=== PATIENT | female | born 1945 | race Caucasian/White ===

== ENCOUNTER → 2016-03-25 | Outpatient (REF) | payer MEDICARE ==
[~2016-03-25] MED LIST: ASPI1TAB24 PO; DEPA1TAB PO; HYDR25T PO; LASI20TA PO; PROT1TAB2 PO; RISP1TAB3 PO; RISP1TAB41 PO; RISP25INJ IM; Risperidone PO; TYLE325T5 PO; VERA1TAB11 PO; XANA2TAB2 PO; ZOLO100T AD; ZOLO100T PO; ZOLO50TA PO
== END ==
LOC: M LAB REF 12:29
PROVIDERS: ATTEND Obstetrics & Gynecology
DX: N81.11 Cystocele, midline (principal); N39.46 Mixed incontinence

== ENCOUNTER → 2016-05-19 | Outpatient (REF) | payer MEDICARE ==
[~2016-05-19] MED LIST changes: +AMOX500T PO; +HYDR-4274 PO; +TRAZ50TA4 PO
[2016-05-20 11:58] LABS: DIFF SLIDE NUMBER 262; MEAN CORPUSCULAR HEMOGLOBIN 30.5 pg (27.0-33.0); MEAN CORPUSCULAR HGB CONC 33.9 g/dl (32.0-36.5); MEAN CORPUSCULAR VOLUME 90.1 fl (80.0-96.0); PLATELET COUNT, AUTOMATED 280 k/mm3 (150-450); RED CELL DISTRIBUTION WIDTH 12.1 % (11.5-14.5); WHITE BLOOD COUNT 7.2 K/mm3 (4.0-10.0)
[2016-05-20 12:02] LABS: ALBUMIN 3.9 GM/DL (3.2-5.2); ALBUMIN/GLOBULIN RATIO 1.22 (1.00-1.93); ALKALINE PHOSPHATASE 123 U/L (45-117); ALT/SGPT 18 U/L (12-78); ANION GAP 7 MEQ/L (8-16); AST/SGOT 13 U/L (15-37); BILIRUBIN,TOTAL 0.2 MG/DL (0.2-1.0); BLOOD UREA NITROGEN 8 MG/DL (7-18); CALCIUM LEVEL 8.6 MG/DL (8.8-10.2); CARBON DIOXIDE LEVEL 31 MEQ/L (21-32); CHLORIDE LEVEL 102 MEQ/L (98-107); GLOMERULAR FILTRATION RATE > 60.0 (>39); GLUCOSE, FASTING 86 MG/DL (83-110); POTASSIUM SERUM 4.9 MEQ/L (3.5-5.1); SODIUM LEVEL 140 MEQ/L (136-145); TOTAL PROTEIN 7.1 GM/DL (6.4-8.2)
[2016-05-20 12:31] LABS: BASOPHILS 2 % (0-4); EOSINOPHILS 3 % (0-5)
== END ==
LOC: M SFHCCLAY 14:07
PROVIDERS: ATTEND Family Medicine
DX: Z01.818 Encounter for other preprocedural examination (principal); N81.4 Uterovaginal prolapse, unspecified
CPT/HCPCS: 36415; 80053; 85025; 93005; G0463

== ENCOUNTER → 2016-05-26 | Outpatient (REF) | payer MEDICARE ==
[~2016-05-26] MED LIST changes: +antibiotic
== END ==
LOC: M SFHCCLAY 11:59
PROVIDERS: ATTEND Family Medicine
DX: J40 Bronchitis, not specified as acute or chronic (principal)
CPT/HCPCS: 87070; 87205; G0463

== ENCOUNTER 2016-06-22 07:27 | Day surgery (SDC) | payer MEDICARE ==
[~2016-06-22] VITALS: Ht 152.4 cm; Wt 83.5 kg
[2016-06-22] MEDS ORDERED: LR 1,000 ML IV SCH ×3 (07:45→13:30)
[2016-06-22 07:59] LABS: MEAN CORPUSCULAR HGB CONC 33.6 g/dl (32.0-36.5); MEAN CORPUSCULAR VOLUME 89.1 fl (80.0-96.0); RED CELL DISTRIBUTION WIDTH 12.4 % (11.5-14.5); WHITE BLOOD COUNT 5.9 K/mm3 (4.0-10.0)
[2016-06-22] MEDS ORDERED: LIDOCAINE 2% INJ 100 MG/5 ML SDV (FOR ANES.) As Ordered ONE (08:55)
[2016-06-22] MEDS ORDERED: fentaNYL 100 MCG/2 ML INJECTION (J3010) As Ordered ONE ×2 (08:55→10:14)
[2016-06-22] MEDS ORDERED: ROCURONIUM BROMIDE 50 MG/5 ML VIAL As Ordered ONE (08:55)
[2016-06-22] MEDS ORDERED: PROPOFOL 200 MG/20 ML VIAL As Ordered ONE ×2 (08:55→10:14)
[2016-06-22] MEDS ORDERED: MIDAZOLAM INJ 2 MG/2 ML VIAL (J2250) As Ordered ONE (08:55)
[2016-06-22] MEDS ORDERED: ALBUTEROL SULFATE 2.5 MG/0.5 ML INH NEB SOLN As Ordered ONE (09:13)
[2016-06-22] MEDS ORDERED: ALBUTEROL SULFATE 2.5 MG/0.5 ML INH NEB SOLN INH ONE (09:45)
[2016-06-22] MEDS ORDERED: VASOPRESSIN INJ 20 UNITS/ML VIAL As Ordered ONE (10:04)
[2016-06-22] MEDS ORDERED: KETOROLAC 60 MG/2 ML VIAL (J1885) As Ordered ONE (10:39)
[2016-06-22] MEDS ORDERED: NEOSTIGMINE 1MG/ML 5 ML SYRINGE (J2710) As Ordered ONE (10:39)
[2016-06-22] MEDS ORDERED: GLYCOPYRROLATE INJ 0.2 MG/ML 2 ML VIAL As Ordered ONE (10:39)
[2016-06-22] MEDS ORDERED: ONDANSETRON 4MG/2ML VIAL (J2405) As Ordered ONE (10:39)
[2016-06-22] MEDS ORDERED: HYDROmorphone HCL 1 MG/ML SYRINGE (J1170) As Ordered ONE (13:25)
[2016-06-22] MEDS: HYDROmorphone HCL 1 MG/ML SYRINGE (J1170) IV PRN ×4 (13:28→14:21)
[2016-06-22] MEDS ORDERED: ONDANSETRON 4MG/2ML VIAL (J2405) IV PRN (13:30)
[2016-06-22] MEDS ORDERED: fentaNYL 100 MCG/2 ML INJECTION (J3010) IV PRN (13:30)
[2016-06-22] MEDS ORDERED: PERCOCET 5MG/325MG TAB PO PRN (13:30)
[2016-06-22] MEDS ORDERED: MORPHINE PCA 1MG/ML 100ML CADD As Ordered ONE (13:41)
[2016-06-22] MEDS ORDERED: diphenhydrAMINE INJ 50MG/ML VIAL (J1200) IV PRN (14:00)
[2016-06-22] MEDS ORDERED: NALBUPHINE HCL 10 MG/ML AMP (J2300) IV PRN (14:00)
[2016-06-22] MEDS ORDERED: MORPHINE PCA 1MG/ML 100ML CADD IV PRN (14:00)
[2016-06-22] MEDS ORDERED: NALOXONE INJ 0.4 MG/1 ML VIAL (J2310) IV PRN (14:00)
[2016-06-22] MEDS ORDERED: EPIDURAL/PCA KEYS XX PRN (14:00)
[2016-06-22] MEDS ORDERED: METOCLOPRAMIDE INJ 10MG/2ML VIAL (J2765) IV PRN (14:15)
[2016-06-22] MEDS: LR 1,000 ML IV SCH (14:45)
[2016-06-22 16:55] VITALS: BP 161/70
[2016-06-22 17:25] VITALS: BP 128/67
[2016-06-22 18:25] VITALS: BP 137/71
[2016-06-22 20:25] VITALS: BP 140/80
[2016-06-22 21:25] VITALS: BP 138/75
[2016-06-22 22:25] VITALS: BP 142/74
--- NOTE | 2016-06-22 23:03 | RO ---
DATE OF PROCEDURE: 06/22/2016 PREOPERATIVE DIAGNOSIS: Symptomatic pelvic prolapse and incontinence. POSTOPERATIVE DIAGNOSIS: PROCEDURE: Total vaginal hysterectomy with bilateral oophorectomy and left salpingectomy. The right tube was scarred up a little higher and unable to be reached. She then had a uterosacral colpopexy with anterior, posterior perineorrhaphy and mini mid urethral sling using Solyx and, of course, cystourethroscopy. SURGEON: Dr. Cheryl Meyers GRILL ASSOCIATE: There was no surgical life enrichment assistant. ANESTHESIA: General. DESCRIPTION OF PROCEDURE: Daisy was brought to the operating room where sufficient anesthesia was induced. She was prepped, draped and positioned in the usual sterile fashion, the bladder emptied and the cervix, which was sitting at the introitus, grasped with a single-tooth tenaculum. With retractors in place, a circumferential incision was made around the base of the cervix, and the cardinal ligaments were isolated, clamped, transected and ligated using De Robles clamps, which were used throughout this portion of the case, and #0 Vicryl suture, which was also used throughout this portion of the case. The uterosacral ligaments were then clamped, transected and ligated. The left side uterosacral was far better developed than the right. They were labeled for future marking, and the posterior reflection of the peritoneum was entered. The patient has a postmenopausal sized fibroid uterus, and the dissection continued anteriorly to find the peritoneal reflection and the uterine vasculature was then carefully clamped, transected and ligated in a sequential fashion to allow delivery of the uterus. The left fallopian tube and ovary were delivered with the uterus and the pedicles carefully clamped, transected and ligated up to the infundibulopelvic on the left side. On the right side, the broad ligament was transected around, etcetera and the uterus delivered, and then we went back for that ovary, which was visible, but the fallopian tube was snug against the pelvic sidewall and too far up for me to get the pedicle down to view to have good control to deliver it, so we got the ovary on the right side but not the fimbria. We then checked each of these pedicles and had good hemostasis. I then placed the posterior peritoneum on traction. There was a reasonably sized cystocele, but we were able with traction to palpate and get a long Allis onto the uterosacrals. We then placed two Prolene and one Vicryl suture through each uterosacral, and it was certainly easier to place these on the left side than the right. But, we were able to get a decent purchase on the right. We were able to put traction on those sutures and feel that we had good tissue purchase, and, of course, the Prolene was more cephalad and the single Vicryl was more caudad of those three. We then dissected from the vaginal cuff caudad down to the rectovaginal septum. She had essentially a complete transverse defect of the rectovaginal septum at the vaginal cuff level. And as we dissected down, we were able to palpate decent tissue of the rectovaginal septum, and we then were able with this dissection, deflecting away the rectum etcetera, to pass the Prolene, both sides, in a sequential fashion through that rectovaginal septum. Then, we passed the Vicryl most caudad and through and through into the vagina and used Singletary needles to pass the other end as well. Then, we had these [address], three on each uterosacral, secured to the rectovaginal septum and we passed through the ties on each of these and then scoped the patient to confirm normal jets of urine. We were able to see clear jets of urine from both ureters with no difficulty and the Pyridium that the patient had taken preoperatively helped with this. We then completed the rest of the throws on those Prolenes so as to have enough secure throws, given that it was Prolene, and trimmed those and, of course, completed the Vicryl as well. We then closed the vaginal cuff with angle stitches of #0 Vicryl and then a running lock stitch for closure. With this, and securing the vaginal cuff to the posterior wall with all those sutures, we had reasonable, but not complete support, so we went ahead and did a small anterior repair. We did not want to lose too much function, but we injected anteriorly with vasopressin, made a midline incision, used #2-0 Vicryl to resupport the paravesical tissues and then closed that wound making sure not to over correct as much as we could. We then moved on to the Solyx where we injected again anteriorly, about a centimeter cephalad from the urethral meatus, made about a centimeter long incision, dissected out laterally for the tract for the mesh. Then, placed the Solyx mesh into the obturator membrane in the usual fashion, starting first on the right, then on the left and then again scoped the patient, confirmed lack of bladder or urethral injury. When the second cystourethroscopy confirmed lack of injury, we went ahead and closed that vaginal wound and then turned our attention posteriorly to small perineal repair and posterior repair where there was on the left side, a defect of the rectovaginal septum from the perineal body. We went ahead and took an inverted triangle of tissue from the perineal body and then dissected the vaginal tissues cephalad, essentially completing a triangle shape in that direction and then resupported the rectovaginal septum to the perineal body and then resupported horizontally, and then closed that skin over that correction. Following this, the procedure was ended with moistened vaginal pack placed and a Virk placed for temporary bladder drainage. Of course, other than the packing and the Virk, there was no dressing because of the vaginal injury. The procedure was then ended. Estimated blood loss for the procedure was less 50 mL. Fluid replacement was crystalloid. Complications: None. Condition and Disposition: Daisy tolerated the procedure well and was recovering in the recovery room in good condition.
[2016-06-22] MEDS: hydrOXYzine 50 MG TAB PO SCH (23:28)
[2016-06-23 02:25] VITALS: BP 144/76
[2016-06-23] MEDS: IBUPROFEN 600 MG TAB PO PRN ×2 (02:32→09:32)
[2016-06-23] MEDS: LR 1,000 ML IV SCH ×2 (02:33→09:29)
[2016-06-23 03:01] VITALS: BP 153/75
[2016-06-23 06:00] VITALS: BP 144/66
[2016-06-23] MEDS ORDERED: NORCO, ANEXSIA 5/325MG TABLET (HYDROcodone/ACETAMINOPHEN) PO PRN (06:00)
[2016-06-23 07:24] LABS: MEAN CORPUSCULAR HEMOGLOBIN 29.7 pg (27.0-33.0); MEAN CORPUSCULAR VOLUME 92.7 fl (80.0-96.0); RED CELL DISTRIBUTION WIDTH 12.6 % (11.5-14.5); WHITE BLOOD COUNT 8.6 K/mm3 (4.0-10.0)
[2016-06-23] MEDS ORDERED: NORC1TAB4 PO (08:58)
[2016-06-23] MEDS ORDERED: risperiDONE 1 MG TAB PO SCH (09:00)
[2016-06-23] MEDS ORDERED: DOCUSATE SODIUM 100 MG CAP PO SCH (09:00)
[2016-06-23] MEDS ORDERED: VERAPAMIL 180 MG SR TAB PO SCH (09:00)
[2016-06-23] MEDS ORDERED: ASPIRIN 81 MG CHEW TABLET PO SCH (09:00)
[2016-06-23] MEDS ORDERED: SERTRALINE HCL 50 MG TAB PO SCH (09:00)
[2016-06-23] MEDS ORDERED: MOTR200T44 PO (09:07)
[2016-06-23] MEDS: hydrOXYzine 50 MG TAB PO SCH (09:32)
[2016-06-23 09:33] VITALS: BP 144/66
[2016-06-23 10:00] VITALS: BP 149/71
[2016-06-23 16:00] VITALS: BP 152/66
== END 2016-06-23 16:46 | disposition home or self-care (01) ==
LOC: M SDC 07:27 → M MS5PR 16:55 → M SDC 06-23 16:46
PROVIDERS: ATTEND Obstetrics & Gynecology
DX: N81.89 Other female genital prolapse (principal); N39.3 Stress incontinence (female) (male); N72 Inflammatory disease of cervix uteri; N85.01 Benign endometrial hyperplasia; D25.1 Intramural leiomyoma of uterus; I20.9 Angina pectoris, unspecified; I25.2 Old myocardial infarction; I10 Essential (primary) hypertension; E04.1 Nontoxic single thyroid nodule; Z91.040 Latex allergy status; Z91.030 Bee allergy status
CPT/HCPCS: 36415; 57260; 57283; 57288; 58262; 85027; 86850; 86900; 86901; 88305; C1771; J0690; J1170; J1885; J2250; J2405; J2710; J3010

== ENCOUNTER → 2016-08-04 | Outpatient (REF) | payer MEDICARE, OTHER ==
[~2016-08-04] MED LIST changes: +MOTR200T44 PO; +NORC1TAB4 PO
== END ==
LOC: M LAB REF 16:27
PROVIDERS: ATTEND Obstetrics & Gynecology
DX: N81.2 Incomplete uterovaginal prolapse (principal); N39.46 Mixed incontinence; N36.41 Hypermobility of urethra

== ENCOUNTER → 2016-10-19 | Outpatient (CLI) | payer MEDICARE ==
[~2016-10-19] MED LIST changes: +ASPI-161 PO; -ASPI1TAB24 PO; +HYDR-3363 PO; -HYDR-4274 PO; -HYDR25T PO; +HYDR50TA70 PO; +RISP0.5T3 PO; -RISP1TAB41 PO; +RISP1TAB42 PO; +TRAZ50TA11 PO; -TRAZ50TA4 PO
[2016-10-19 10:00] LABS: BASO % 0.8 % (0.0-1.0); EOS # 0.2 K/mm3 (0.0-0.50); EOS % 3.2 % (0.0-3.0); LARGE UNSTAINED CELL # 0.1 K/mm3 (0.0-0.4); LARGE UNSTAINED CELL % 1.4 % (0.0-4.0); LYMPH # 1.6 K/mm3 (1.5-4.5); LYMPH % 24.3 % (24.0-44.0); MEAN CORPUSCULAR HGB CONC 34.1 g/dl (32.0-36.5); MEAN CORPUSCULAR VOLUME 87.9 fl (80.0-96.0); MONO # 0.4 K/mm3 (0.0-0.8); MONO % 5.7 % (0.0-5.0); NEUTROPHILS # 4.1 K/mm3 (1.8-7.7); NEUTROPHILS % 64.6 % (36.0-66.0); PLATELET COUNT, AUTOMATED 236 k/mm3 (150-450); RED CELL DISTRIBUTION WIDTH 12.9 % (11.5-14.5); WHITE BLOOD COUNT 6.3 K/mm3 (4.0-10.0)
[2016-10-19 10:07] LABS: INR 0.91
[2016-10-19 10:25] LABS: PERCENT SATURATION 29.8 % (13.2-45.0)
== END ==
LOC: M LAB 09:15
PROVIDERS: ATTEND Internal Medicine Gastroenterology
DX: D64.9 Anemia, unspecified (principal)

== ENCOUNTER 2016-11-12 07:55 | Outpatient (CLI) | payer MEDICARE ==
[~2016-11-12] VITALS: Ht 152.4 cm; Wt 80.7 kg
[2016-11-12] MEDS ORDERED: NS 1,000 ML IV ONE (08:15)
--- NOTE | 2016-11-12 09:24 | ROOR ---
Patient Name: Daisy Cooney Procedure Date: 11/12/2016 8:47 AM Date of : 1945 Age: 71 Room: [facility] Gender: Female Note Status: Finalized Procedure: Colonoscopy Indications: Gastrointestinal occult blood loss Providers: Kishore Mariee MD Referring MD: Yfn Kohler MD Requesting Provider: Medicines: Monitored Anesthesia Care Complications: No immediate complications. Procedure: Pre-Anesthesia Assessment: - Prior to the procedure, a History and Physical was performed, and patient medications and allergies were reviewed. The patient is competent. The risks and benefits of the procedure and the sedation options and risks were discussed with the patient. All questions were answered and informed consent was obtained. Patient identification and proposed procedure were verified by the physician, the nurse and the surveyor geodetic in the procedure room. Mental Status Examination: alert and oriented. Airway Examination: normal oropharyngeal airway and neck mobility. Respiratory Examination: clear to auscultation. CV Examination: normal. Prophylactic Antibiotics: The patient does not require prophylactic antibiotics. Prior Anticoagulants: The patient has taken no previous anticoagulant or antiplatelet agents. ASA Grade Assessment: II - A patient with mild systemic disease. After reviewing the risks and benefits, the patient was deemed in satisfactory condition to undergo the procedure. The anesthesia plan was to use monitored anesthesia care (MAC). Immediately prior to administration of medications, the patient was re-assessed for adequacy to receive sedatives. The heart rate, respiratory rate, oxygen saturations, blood pressure, adequacy of pulmonary ventilation, and response to care were monitored throughout the procedure. The physical status of the patient was re-assessed after the procedure. The Colonoscope was introduced through the anus and advanced to the cecum, identified by appendiceal orifice and ileocecal valve. The colonoscopy was performed without difficulty. The patient tolerated the procedure well. The quality of the bowel preparation was adequate to identify polyps 6 mm and larger in size and fair. The ileocecal valve, appendiceal orifice, and rectum were photographed. Scope insertion time was 3 minutes. Scope withdrawal time was 8 minutes. The total duration of the procedure was 14 minutes. Findings: The perianal and digital rectal examinations were normal. A 10 mm polyp was found in the transverse colon. The polyp was sessile. The polyp was removed with a cold biopsy forceps. Resection and retrieval were complete. Verification of patient identification for the specimen was done by the physician and nurse using the patient's name, date and medical record number. Estimated blood loss was minimal. Multiple small and large-mouthed diverticula were found from sigmoid to ascending colon. There was no evidence of diverticular bleeding. Non-bleeding external and internal hemorrhoids were found during retroflexion. The hemorrhoids were medium-sized. A moderate amount of semi-solid stool was found from sigmoid to hepatic flexure, interfering with visualization. Lavage of the area was performed using a large amount of sterile water, resulting in clearance with fair visualization. Impression: - Preparation of the colon was fair. - One 10 mm polyp in the transverse colon, removed with a cold biopsy forceps. Resected and retrieved. - Moderate diverticulosis from sigmoid to ascending colon. There was no evidence of diverticular bleeding. - Non-bleeding external and internal hemorrhoids. - Stool from sigmoid to hepatic flexure. Recommendation: - Patient has a contact number available for emergencies. The signs and symptoms of potential delayed complications were discussed with the patient. Return to normal activities tomorrow. Written discharge instructions were provided to the patient. - High fiber diet. - Continue present medications. - Await pathology results. - Repeat colonoscopy in 3 years because the bowel preparation was suboptimal and for surveillance based on pathology results. - Perform an upper GI endoscopy at appointment to be scheduled. - Return to GI clinic as previously scheduled. - Return to primary care physician. Kishore Mariee MD Kishore Mariee MD 11/12/2016 9:24:12 AM This report has been signed electronically. Number of Addenda: 0 Note Initiated On: 11/12/2016 8:47 AM Estimated Blood Loss: Estimated blood loss was minimal.
[2016-11-12 09:35] VITALS: BP 186/80
== END 2016-11-12 09:50 | disposition home or self-care (01) ==
LOC: M OPP 07:55
PROVIDERS: ATTEND Internal Medicine Gastroenterology
DX: R19.5 Other fecal abnormalities (principal); D12.3 Benign neoplasm of transverse colon; K57.30 Diverticulosis of large intestine without perforation or abscess without bleeding; K64.4 Residual hemorrhoidal skin tags; K64.8 Other hemorrhoids; I25.2 Old myocardial infarction; I20.9 Angina pectoris, unspecified; I10 Essential (primary) hypertension; E03.9 Hypothyroidism, unspecified; E04.9 Nontoxic goiter, unspecified; K92.2 Gastrointestinal hemorrhage, unspecified; R23.3 Spontaneous ecchymoses; R06.02 Shortness of breath; M51.9 Unspecified thoracic, thoracolumbar and lumbosacral intervertebral disc disorder; M19.90 Unspecified osteoarthritis, unspecified site; F20.9 Schizophrenia, unspecified; F32.9 Major depressive disorder, single episode, unspecified; F41.9 Anxiety disorder, unspecified; Z78.0 Asymptomatic menopausal state; G47.30 Sleep apnea, unspecified; Z88.8 Allergy status to other drugs, medicaments and biological substances; Z91.040 Latex allergy status; Z91.030 Bee allergy status; Z79.82 Long term (current) use of aspirin; Z79.899 Other long term (current) drug therapy; Z80.0 Family history of malignant neoplasm of digestive organs; Z80.3 Family history of malignant neoplasm of breast

== ENCOUNTER → 2017-06-10 | Outpatient (CLI) | payer MEDICARE | LOC: M WHC 13:42 | DX: Z12.31 Encounter for screening mammogram for malignant neoplasm of breast (principal) | CPT/HCPCS: 77067 ==

== ENCOUNTER → 2017-07-19 | Outpatient (CLI) | payer MEDICARE | LOC: M CLY 08:11 | DX: J42 Unspecified chronic bronchitis (principal) | CPT/HCPCS: 71046 ==

== ENCOUNTER → 2017-08-02 | Outpatient (REF) | payer MEDICARE | LOC: M SFHCCLAY 11:39 | DX: J42 Unspecified chronic bronchitis (principal) | CPT/HCPCS: 87205 ==

== ENCOUNTER → 2017-08-26 | Outpatient (REF) | payer MEDICARE | LOC: M SFHCCLAY 11:17 | DX: J44.1 Chronic obstructive pulmonary disease with (acute) exacerbation (principal) | CPT/HCPCS: 87205 ==

== ENCOUNTER 2017-11-22 13:39 | Inpatient (IN) | payer MEDICARE ==
[2017-11-22 14:04] LABS: BASO # 0.1 10^3/uL (0.0-0.2); BASO % 0.5 % (0.0-1.0); EOS # 0.4 10^3/uL (0.0-0.50); EOS % 4.2 % (0.0-3.0); HEMATOCRIT 40.3 % (36.0-47.0); HEMOGLOBIN 13.7 g/dl (12.0-15.5); IMMATURE GRANULOCYTE % 0.3 % (0-3.0); LYMPH # 1.7 10^3/uL (1.5-4.5); LYMPH % 15.7 % (24.0-44.0); MEAN CORPUSCULAR HEMOGLOBIN 31.4 pg (27.0-33.0); MEAN CORPUSCULAR VOLUME 92.2 fl (80.0-96.0); MONO # 0.6 10^3/uL (0.0-0.8); NEUTROPHILS # 7.8 10^3/uL (1.8-7.7); NEUTROPHILS % 73.3 % (36.0-66.0); PLATELET COUNT, AUTOMATED 228 10^3/uL (150-450); RED BLOOD COUNT 4.37 10^6/uL (4.00-5.40); RED CELL DISTRIBUTION WIDTH 12.2 % (11.5-14.5); WHITE BLOOD COUNT 10.6 10^3/uL (4.0-10.0)
[2017-11-22] MEDS: IPRATROPIUM 0.5MG/ALBUTEROL 2.5MG INH SOL UD 3ML (DUONEB)(J7620) NEB ×5 (14:18→22:47)
[2017-11-22] MEDS: LABETALOL HCL 100 MG/20 ML VIAL IV (14:20)
[2017-11-22 14:22] LABS: INR 0.91; PROTHROMBIN TIME 12.3 SECONDS (12.1-14.4)
[2017-11-22 14:25] LABS: ABG HCO3 27.5 MEQ/L (22.0-26.0); ABG PARTIAL PRESSURE CO2 46.3 mmHg (35.0-45.0); ABG PARTIAL PRESSURE O2 185.9 mmHg (75.0-100.0); ABG STANDARD HCO3 26.2 MEQ/L (22.0-26.0); ABG TOTAL CO2 28.9 MEQ/L (23.0-31.0); ABG pH (ARTERIAL) 7.391 UNITS (7.350-7.450)
[2017-11-22 14:43] LABS: LACTIC ACID SEPSIS PROTOCOL 0.8 MMOL/L (0.4-2.0)
[2017-11-22 14:48] LABS: ALKALINE PHOSPHATASE 115 U/L (45-117); ALT/SGPT 28 U/L (12-78); ANION GAP 9 MEQ/L (8-16); AST/SGOT 21 U/L (7-37); BILIRUBIN,DIRECT < 0.1 MG/DL (0.0-0.2); BILIRUBIN,TOTAL 0.3 MG/DL (0.2-1.0); BLOOD UREA NITROGEN 10 MG/DL (7-18); CALCIUM LEVEL 9.2 MG/DL (8.8-10.2); CARBON DIOXIDE LEVEL 26 MEQ/L (21-32); CHLORIDE LEVEL 102 MEQ/L (98-107); CPK CREATINE PHOSPHOKINASE 120 U/L (26-192); CREATININE FOR GFR 0.52 MG/DL (0.55-1.30); GLOMERULAR FILTRATION RATE > 60.0 (>39); GLUCOSE, FASTING 109 MG/DL (70-100); MB/CK RELATIVE INDEX 2.83 (< OR =4); NT-PRO BNP 184 PG/ML (<125); SODIUM LEVEL 137 MEQ/L (136-145); TOTAL PROTEIN 7.7 GM/DL (6.4-8.2); TROPONIN I < 0.02 NG/ML (< 0.10)
[2017-11-22 15:00] LABS: ALBUMIN/GLOBULIN RATIO 1.08 (1.00-1.93)
[2017-11-22] MEDS ORDERED: ISOVUE-370 76% 100ML VIAL (Q9967) As Ordered (15:21)
[2017-11-22] MEDS: methylPREDNISolone INJ 125 MG/2 ML VIAL (J2930) IV ×2 (16:00→21:55)
[2017-11-22] MEDS: ALBUTEROL SULFATE 2.5 MG/0.5 ML INH NEB SOLN NEB (16:00)
[2017-11-22] MEDS: MOXIFLOXACIN 400 MG TAB PO (18:11)
[2017-11-22] MEDS: NITROGLYCERIN 2% OINT 1 GM *U/D* PKT TOP (18:15)
[2017-11-22] MEDS ORDERED: RAMELTEON 8 MG TAB (ROZEREM) PO (18:30)
[2017-11-22 19:35] LABS: C REACTIVE PROTEIN QUANTITATIV 0.38 MG/DL (0.00-0.30)
[2017-11-22] MEDS: FLUTICASONE HFA 44 MCG 10.6GM INHALER (FLOVENT) INH (20:01)
[2017-11-22] MEDS ORDERED: PILL CRUSHER/CUTTER 1 EACH XX (21:15)
[2017-11-22] MEDS: ACETAMINOPHEN TAB 650MG DOSE (2X325MG) PO (21:55)
[2017-11-22] MEDS: VERAPAMIL 40 MG TAB PO (21:56)
[2017-11-22] MEDS: HEPARIN SOD (PORCINE) 5000 UNITS/ML VIAL SC (21:56)
[2017-11-22] MEDS: LEVALBUTEROL 1.25 MG/0.5 ML CONCENTRATE NEB INH (22:47)
[2017-11-23] MEDS: HEPARIN SOD (PORCINE) 5000 UNITS/ML VIAL SC (05:39)
[2017-11-23] MEDS: VERAPAMIL 40 MG TAB PO (05:41)
[2017-11-23] MEDS: IPRATROPIUM 0.5MG/ALBUTEROL 2.5MG INH SOL UD 3ML (DUONEB)(J7620) NEB (06:11)
[2017-11-23 07:26] LABS: BASO % 0.1 % (0.0-1.0); HEMATOCRIT 40.5 % (36.0-47.0); IMMATURE GRANULOCYTE % 0.3 % (0-3.0); LYMPH # 0.8 10^3/uL (1.5-4.5); LYMPH % 10.9 % (24.0-44.0); MEAN CORPUSCULAR HEMOGLOBIN 31.7 pg (27.0-33.0); MEAN CORPUSCULAR HGB CONC 34.6 g/dl (32.0-36.5); MEAN CORPUSCULAR VOLUME 91.6 fl (80.0-96.0); MONO # 0.1 10^3/uL (0.0-0.8); MONO % 1.6 % (0.0-5.0); NEUTROPHILS # 6.5 10^3/uL (1.8-7.7); NEUTROPHILS % 87.1 % (36.0-66.0); PLATELET COUNT, AUTOMATED 235 10^3/uL (150-450); RED BLOOD COUNT 4.42 10^6/uL (4.00-5.40); RED CELL DISTRIBUTION WIDTH 12.1 % (11.5-14.5); WHITE BLOOD COUNT 7.5 10^3/uL (4.0-10.0)
[2017-11-23] MEDS: FLUTICASONE HFA 44 MCG 10.6GM INHALER (FLOVENT) INH (07:34)
[2017-11-23] MEDS: TIOTROPIUM INHALER/CAPSULE (SPIRIVA) INH (07:34)
[2017-11-23 08:06] LABS: ANION GAP 7 MEQ/L (8-16); BLOOD UREA NITROGEN 7 MG/DL (7-18); CALCIUM LEVEL 9.8 MG/DL (8.8-10.2); CARBON DIOXIDE LEVEL 30 MEQ/L (21-32); CHLORIDE LEVEL 100 MEQ/L (98-107); CREATININE FOR GFR 0.58 MG/DL (0.55-1.30); GLOMERULAR FILTRATION RATE > 60.0 (>39); GLUCOSE, FASTING 179 MG/DL (70-100); POTASSIUM SERUM 4.4 MEQ/L (3.5-5.1); SODIUM LEVEL 137 MEQ/L (136-145)
[2017-11-23] MEDS: SERTRALINE 100 MG TAB PO (08:29)
[2017-11-23] MEDS: clonazePAM 1 MG TAB PO (08:29)
[2017-11-23] MEDS: PYRIDOXINE 50 MG TAB PO (08:29)
[2017-11-23] MEDS: methylPREDNISolone INJ 125 MG/2 ML VIAL (J2930) IV (08:30)
[2017-11-23] MEDS: FUROSEMIDE 20 MG TAB PO (08:30)
[2017-11-23] MEDS: VITAMIN E 400 INTERNATIONAL UNITS CAP PO (08:30)
[2017-11-23] MEDS: CYANOCOBALAMIN 500 MCG TAB PO (08:30)
[2017-11-23] MEDS: ASPIRIN 81 MG CHEW TABLET PO (08:30)
[2017-11-23] MEDS: FOLIC ACID 1 MG TAB PO (08:31)
[2017-11-23] MEDS ORDERED: ENTER DRUG NAME HERE (PATIENT'S OWN MED) PO (09:00)
[2017-11-23] MEDS ORDERED: VERAPAMIL 40 MG TAB PO (09:00)
[2017-11-23] MEDS: methylPREDNISolone 80MG/ML SUSP 1ML VIAL (J1040) IM (13:51)
== END 2017-11-23 14:15 | disposition home or self-care (01) | DRG 192 ==
LOC: M ED 13:39 → M ED INP 18:05
DX: J44.0 Chronic obstructive pulmonary disease with (acute) lower respiratory infection (principal); J20.9 Acute bronchitis, unspecified; J44.1 Chronic obstructive pulmonary disease with (acute) exacerbation; Z91.040 Latex allergy status; Z88.8 Allergy status to other drugs, medicaments and biological substances; Z91.038 Other insect allergy status; Z79.82 Long term (current) use of aspirin; Z79.899 Other long term (current) drug therapy; Z87.891 Personal history of nicotine dependence; I10 Essential (primary) hypertension; F20.9 Schizophrenia, unspecified

== ENCOUNTER → 2018-01-02 | Outpatient (REF) | payer MEDICARE | LOC: M SFHCCLAY 12:27 | DX: J44.1 Chronic obstructive pulmonary disease with (acute) exacerbation (principal) | CPT/HCPCS: 87186; 87205 ==

== ENCOUNTER → 2018-01-30 | Outpatient (REF) | payer MEDICARE | LOC: M SFHCCLAY 01-31 11:11 | DX: J44.1 Chronic obstructive pulmonary disease with (acute) exacerbation (principal) | CPT/HCPCS: 87205 ==

== ENCOUNTER → 2018-03-20 | Outpatient (CLI) | payer MEDICARE ==
[~2018-03-20] MED LIST changes: +BIOT10TA2 PO; +CLON0.5T8 PO; +DOXY100C PO; +FOLI1TAB11 PO; -LASI20TA PO; +LASI20TA3 PO; +PROAAER10 INH; +PYRI100T2 PO; +TRAZ-160 PO; -TRAZ50TA11 PO; +TURM500T PO; +VITA10002 PO; +VITA400C67 PO; +VRAY1.5C PO
--- NOTE | 2018-03-20 12:50 | REP ---
UNILATERAL RIGHT RIBS, PA CHEST, FIVE VIEWS: HISTORY: Chest pain. COMPARISON: 11/21/2017 A minimal increase in interstitial markings is present in the lower lobes consistent with chronic interstitial change. The heart is normal in size. The pulmonary vasculature is normal in appearance. There are fractures of the right 5th and 6th ribs. IMPRESSION: 1. Bibasilar chronic interstitial fibrosis. 2. Fractures of the right 5th and 6th ribs.
== END ==
LOC: M CLY 11:04
PROVIDERS: ATTEND Family Medicine
DX: J84.10 Pulmonary fibrosis, unspecified (principal); S22.41XA Multiple fractures of ribs, right side, initial encounter for closed fracture; R07.89 Other chest pain; W18.09XA Striking against other object with subsequent fall, initial encounter; Y92.009 Unspecified place in unspecified non-institutional (private) residence as the place of occurrence of the external cause
CPT/HCPCS: 71101; G0463

== ENCOUNTER → 2018-06-13 | Outpatient (CLI) | payer MEDICARE ==
[~2018-06-13] MED LIST changes: -NORC1TAB4 PO; +NORC1TAB7 PO; +VERA180T3 PO; -VERA1TAB11 PO
--- NOTE | 2018-06-15 16:32 | ECHO ---
DATE OF PROCEDURE: 06/13/2018 REFERRING PHYSICIAN: Dr. Rosibel Carranza INDICATION: Chronic obstructive pulmonary disease with exacerbation. HEIGHT: 60 inches. WEIGHT: 153 pounds. 2D MEASUREMENTS: Aortic root: 3.2 cm Left atrium: 3.3 cm Ventricular septum: 1.22 cm Posterior wall: 1.21 cm Left ventricle diastole: 4.3 cm Inferior vena cava: 1.4 cm DOPPLER MEASUREMENTS: Aortic valve velocity: 132 cm/s LVOT velocity: 85.0 cm/s LVOT VTI: 22.4 cm Mitral E velocity: 74.2 cm/s Mitral A velocity: 91.2 cm/s Mitral deceleration time: 264 ms Very mild tricuspid regurgitation. Estimated right ventricle systolic pressure: 39-44 mmHg assuming a pressure of 5-10 mmHg. MITRAL ANNULAR TISSUE DOPPLER: E prime septal: 4.24 cm/s Mitral E velocity lateral: 5.22 cm/s DESCRIPTION: Rhythm was sinus rhythm and sinus bradycardia. Image quality was adequate. This was a 2D, M-mode, color flow Doppler and pulse wave Doppler examination and included mitral annular tissue Doppler. No pericardial effusion. CONCLUSIONS: 1. Suggestive of mild-moderate elevation of estimated right ventricle systolic pressure (39-44 mmHg). 2. Normal left ventricle internal dimensions. Very mild concentric left ventricle hypertrophy. Normal regional left ventricular (LV) wall motion and wall thickening. Normal LV systolic function. Left ventricular ejection fraction (LVEF) 65% (3D). Grade 1 LV diastolic dysfunction. 3. Mild aortic valve sclerosis of a 3-cusp aortic valve. No aortic regurgitation. 4. Otherwise normal appearing echocardiogram Doppler findings. [facility]
== END ==
LOC: M CARPUL 09:05
PROVIDERS: ATTEND Internal Medicine Pulmonary Disease
DX: I35.8 Other nonrheumatic aortic valve disorders (principal); J44.1 Chronic obstructive pulmonary disease with (acute) exacerbation

== ENCOUNTER → 2018-11-24 | Outpatient (CLI) | payer MEDICARE ==
[~2018-11-24] MED LIST changes: +CENT1TAB PO; +CYAN100049 PO; +GABA-1171 PO; +IBUP200T45 PO; +MELA5CAP2 PO; +MONT10TA2 PO; +SYMB16INH INH; +THIA100T7 PO; -TRAZ-160 PO; +TRAZ-252 PO; -VITA10002 PO; -ZOLO100T AD; +prevagen PO
--- NOTE | 2018-11-24 10:05 | REP ---
CT chest without contrast: Low-dose screening exam. History: Personal history of nicotine dependence. Comparison chest CT study November 22, 2017 May 12, [address] study is also reviewed. CT findings: There are emphysematous changes in the upper lobes of the lungs, right more so than left unchanged. There is a linear area of fibrosis in the right upper lobe posteriorly adjacent to the major fissure which is unchanged from the 2013 prior study. No significant pulmonary nodule is appreciated. There are old bilateral rib fractures in various stages of healing. On the left there are two rib fractures which appear recent anterolaterally. Vascular calcifications noted. Impression: Lung RADS category one negative exam. Repeat screening study suggested 1 year. Electronically Signed by Harry Crane MD 11/24/2018 09:57 A
== END ==
LOC: M RAD 09:36
PROVIDERS: ATTEND Internal Medicine Pulmonary Disease
DX: Z12.2 Encounter for screening for malignant neoplasm of respiratory organs (principal); Z87.891 Personal history of nicotine dependence

== ENCOUNTER 2018-11-26 12:03 | Inpatient (IN) | payer MEDICARE ==
[~2018-11-26] VITALS: Ht 152.4 cm; Wt 68.2 kg
[~2018-11-26 12:03] MED LIST changes: -CENT1TAB PO; -GABA-1171 PO; -IBUP200T45 PO; -MELA5CAP2 PO; -MONT10TA2 PO; +SERTRALINE 100 MG TAB PO SCH; -SYMB16INH INH; -THIA100T7 PO; -prevagen PO
[2018-11-26] MEDS ORDERED: NS 500 ML IV ONE (12:15)
[2018-11-26] MEDS: NS 1,000 ML IV SCH ×2 (12:38→22:36)
[2018-11-26 12:45] LABS: BASO % 0.1 % (0.0-1.0); HEMATOCRIT 46.5 % (36.0-47.0); LYMPH # 0.7 10^3/uL (1.5-5.0); MEAN CORPUSCULAR HEMOGLOBIN 32.7 pg (27.0-33.0); MEAN CORPUSCULAR HGB CONC 34.4 g/dl (32.0-36.5); MEAN CORPUSCULAR VOLUME 95.1 fl (80.0-96.0); MONO # 1.4 10^3/uL (0.0-0.8); MONO % 8.4 % (0.0-5.0); NEUTROPHILS # 14.8 10^3/uL (1.5-8.5); NEUTROPHILS % 87.1 % (36.0-66.0); PLATELET COUNT, AUTOMATED 281 10^3/uL (150-450); RED BLOOD COUNT 4.89 10^6/uL (4.00-5.40); WHITE BLOOD COUNT 16.9 10^3/uL (4.0-10.0)
[2018-11-26] MEDS ORDERED: ceFAZolin SOD 1 GM in D5W MINI-BAG PLUS 50 ML IV ONE (12:45)
--- NOTE | 2018-11-26 13:28 | ECGEPIP ---
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
[2018-11-26 13:29] LABS: BLOOD UREA NITROGEN 32 MG/DL (7-18); CALCIUM LEVEL 8.8 MG/DL (8.8-10.2); CARBON DIOXIDE LEVEL 25 MEQ/L (21-32); CHLORIDE LEVEL 104 MEQ/L (98-107); CPK CREATINE PHOSPHOKINASE 6864 U/L (26-192); CREATININE FOR GFR 0.51 MG/DL (0.55-1.30); GLOMERULAR FILTRATION RATE > 60.0 (>39); GLUCOSE, FASTING 151 MG/DL (70-100); POTASSIUM SERUM 3.6 MEQ/L (3.5-5.1); SODIUM LEVEL 139 MEQ/L (136-145)
[2018-11-26 13:34] LABS: INR 1.12; PROTHROMBIN TIME 14.1 SECONDS (11.8-14.0)
[2018-11-26 13:35] LABS: PARTIAL THROMBOPLASTIN TIME 28.4 SECONDS (25.0-38.4)
--- NOTE | 2018-11-26 13:43 | REP ---
REASON: Trauma. There is a transverse fracture through the mid diaphysis of the humerus with slight posterolateral displacement. Electronically Signed by Omar Turner DO 11/26/2018 02:22 P
--- NOTE | 2018-11-26 13:51 | REP ---
REASON FOR EXAM: Pain, assess for fracture. The exam was performed without intravenous or oral bowel preparatory contrast. Both soft tissue and bone window settings were performed. Degenerative changes seen involving the imaged lumbar spine. There is bilateral, rather symmetric-appearing moderate hip joint space narrowing without prominent marginal osteophytosis or vincenzo buttressing. There is no fracture, dislocation, or subluxation. The bony pelvis is within normal limits. The sacroiliac joints are within normal limits for the patient's age. Mild inferior marginal osteophytosis is present. There is gross distention of the urinary bladder. There is no free fluid in the pelvis. The bowel loops are seen to be within normal limits. IMPRESSION: 1. There is no evidence of a fracture. 2. Degenerative changes, as described above. 3. Distention of the urinary bladder. Electronically Signed by Omar Turner DO 11/26/2018 02:23 P
--- NOTE | 2018-11-26 13:53 | REP ---
REASON: Trauma. There is a proximal humeral fracture. Please see the humerus report. Degenerative changes are seen involving the glenohumeral and acromioclavicular joints. There is no evidence of a dislocation or subluxation. Multiple right-sided rib fractures are noted. At least the 2nd, 3rd, and 5th ribs are fractured, possibly more. IMPRESSION: 1. Known humeral fracture. 2. Chronic changes involving the glenohumeral and acromioclavicular joints. 3. Multiple right-sided rib fractures. Electronically Signed by Omar Turner DO 11/26/2018 02:23 P
--- NOTE | 2018-11-26 13:54 | REP ---
The exam is limited by overlying casting/bandage material. No vincenzo elbow abnormality is noted. Electronically Signed by Omar Turner DO 11/26/2018 02:23 P
--- NOTE | 2018-11-26 13:56 | REP ---
REASON: Preop. COMPARISON: Frontal view obtained as part of a rib series on 03/20/2018. The technique utilized in obtaining the radiograph has magnified the cardiac silhouette and accentuated the interstitial markings. The cardiomediastinal silhouette is unchanged. Mild cardiomegaly cannot be ruled out. Fibrotic changes are again seen throughout the lung nesbitt, status quo. No acute patchy parenchymal opacities or pleural effusions are present. There are multiple right-sided rib fractures. IMPRESSION: 1. No acute cardiopulmonary disease. 2. Multiple right-sided rib fractures. Electronically Signed by Omar Turner DO 11/26/2018 02:23 P
[2018-11-26] MEDS ORDERED: NS 1,000 ML IV ONE (14:00)
[2018-11-26] MEDS ORDERED: prevagen PO (14:11)
[2018-11-26] MEDS ORDERED: MELA5CAP2 PO (14:11)
[2018-11-26] MEDS ORDERED: THIA100T7 PO (14:11)
[2018-11-26] MEDS ORDERED: CENT1TAB PO (14:11)
[2018-11-26] MEDS ORDERED: GABA-1171 PO (14:11)
[2018-11-26] MEDS ORDERED: MONT10TA2 PO (14:11)
[2018-11-26] MEDS ORDERED: SYMB16INH INH (14:11)
[2018-11-26] MEDS ORDERED: IBUP200T45 PO (14:11)
[2018-11-26] MEDS ORDERED: MORPHINE 4 MG/ML 1ML VIAL/SYRINGE (J2270) IV PRN (14:45)
[2018-11-26] MEDS ORDERED: MAALOX 30 ML SUSP *UDC PO PRN (14:45)
[2018-11-26] MEDS ORDERED: MOM 30ML SUSPENSION UDC PO PRN (14:45)
[2018-11-26] MEDS ORDERED: ALBUTEROL SULFATE 2.5 MG/0.5 ML INH NEB SOLN NEB PRN (14:45)
[2018-11-26] MEDS: MONTELUKAST 10 MG TAB PO SCH (15:23)
[2018-11-26] MEDS ORDERED: diltiaZEM **CD** 180 MG CAP PO SCH (15:30)
[2018-11-26] MEDS ORDERED: VERAPAMIL 120 MG SR TAB PO SCH (15:30)
[2018-11-26] MEDS: VERAPAMIL 40 MG TAB PO SCH (16:00)
[2018-11-26] MEDS ORDERED: PILL CUTTER 1 EACH XX PRN (16:15)
[2018-11-26 17:00] VITALS: BP 141/79
[2018-11-26] MEDS: SERTRALINE 100 MG TAB PO SCH (18:28)
[2018-11-26] MEDS: SYMBICORT 160/4.5MCG INHALER 6GM INH SCH (19:50)
[2018-11-26 20:53] VITALS: BP 139/73
[2018-11-26] MEDS: DOCUSATE SODIUM 100 MG CAP PO SCH (21:05)
[2018-11-26] MEDS: KETOROLAC 30 MG/ML VIAL (J1885) IV PRN (21:06)
--- NOTE | 2018-11-26 21:37 | HPEPDOC ---
General Date of Admission Nov 26, 2018 at 14:43 Date of Service: Nov 26, 2018 Chief Complaint The patient is a 73-year-old female admitted with a reason for visit of Brachial Plexus Injury Rt Open Fx Of Rt Humerus. Source: Patient, Family, RN/MD, Old records Exam Limitations: No limitations Severity: Severe History of Present Illness 73 year old female with Schizophrenia, anxiety disorder, hypertension, COPD/Chronic asthma presented to the ED after a fall and being on the floor with right arm trapped in between bed rails hanging from the bed for about 36 hours. On the morning of 11/25/18 patient woke up from sleep with the right arm in between the rails of her 's hospital bed in which she was sleeping (her has ALS and has been admitted in [facility] for the past 2 weeks) tried to slide it out for an hour could not then she got out of bed still with the arm trapped and tried to get it out for another hour could not. Her phone was in the outer room up the stairs. She dragged the bed to the outer room still with arm trapped and tried to throw things at the phone to make it fall down the stairs which ultimately did come down. But by this time she had urinary incontinence on the floor and slipped down on the floor with legs under the couch with arm hanging from the bed rail heard a cracking noise then saw the bleeding start. Then she lost track of time . Her arm was not hurting in fact was numb and was bleeding and she was on the floor with the arm trapped above in the bed rail. Her son and daughter were calling her and in not getting any response since yesterday went to check on her this morning. The EMS had to unscrew the whole of the rail from the bed to get her arm out. In the ED she was found to have a open right humerus fracture. She did not have any power in the right arm but had good pulses. It was felt that she has brachial plexus injury from the prolonged stretching. She was also noted to have rhabdomyolysis. Multiple right-sided rib fractures are noted. At least the 2nd, 3rd, and 5th ribs are fractured, possibly more. The wound was cleaned and humerus casted by orthopedics with the plan for fixation in the next 24 to 48 hours. Home Medications Scheduled Aspirin (Aspirin EC) 81 Mg Tab, 81 MG PO DAILY, (Reported) Budesonide/Formoterol (Symbicort 160-4.5 Mcg Inhaler) 6 Gm Hfa.aer.ad, 2 PUFF INH BID, (Reported) Cyanocobalamin (Vitamin B-12) (Vitamin B-12) 1,000 Mcg Tab, 1,000 MCG PO DAILY, (Reported) Furosemide (Lasix) 20 Mg Tab, 20 MG PO DAILY, (Reported) Gabapentin (Gabapentin) 100 Mg Capsule, 100 MG PO DAILY, (Reported) Montelukast Sodium (Montelukast Sodium) 10 Mg Tablet, 10 MG PO DAILY, (Reported) Multivit-Min/FA/Lycopen/Lutein (Centravites 50 Plus Tablet) 1 Each Tablet, 1 EACH PO DAILY, (Reported) Pyridoxine HCl (Vitamin B6) (Vitamin B-6) 100 Mg Tab, 100 MG PO DAILY, (Reported) Sertraline Hcl (Zoloft) 100 Mg Tab, 100 MG PO DAILY, (Reported) Thiamine HCl (Thiamine HCl) 100 Mg Tablet, 100 MG PO DAILY, (Reported) Verapamil HCl (Verapamil ER) 180 Mg Tab, 180 MG PO DAILY, (Reported) [prevagen] , 1 TAB PO DAILY, (Reported) Scheduled PRN Albuterol Sulfate (Proair Hfa) 108 Mcg/Act Aer, 2 PUFF INH QID PRN for SHORTNESS OF BREATH, (Reported) Clonazepam (Clonazepam) 0.5 Mg Tab, 0.5 MG PO BID PRN for ANXIETY, (Reported) Ibuprofen (Ibu-200) 200 Mg Tablet, 200 MG PO QID PRN for PAIN, (Reported) Melatonin (Melatonin) 5 Mg Capsule, 5 MG PO QHS PRN for SLEEP, (Reported) Allergies Coded Allergies: bee venom protein (honey bee) (Verified Allergy, Unknown, 11/26/18) latex (Verified Allergy, Unknown, 11/26/18) Past Medical History Medical History SCHIZOPHRENIA ANXIETY DISORDER HYPERTENSION COPD/CHRONIC ASTHMA EMPHYSEMA FX. RIBS Left and Right. NODULE ON THYROID CATARACTS LUMP LEFT BREAST DIVERTICULITIS Surgical History NODULE ON THYROID ASPIRATED 08/01/2013 [facility] HYSTERECTOMY 06/22/16 COLONOSCOPY-DIVERTICULITIS,1 POLYP REMOVED 11/12/16 Family History FATHER: , PSYCH ISSUES, ALCOHOLISM, DIAGNOSED WITH PSYCHIATRIC CONDITIONS MOTHER: , CANCER, COLON, CARDIAC DISEASE, ARTHRITIS, HYPERTENSION, HYPERLIPIDEMIA, DIABETES, PSYCHIATRIC CONDITIONS SIBLINGS: , 1 SISTER , COPD SON(S): ALIVE DAUGHTER(S): ALIVE PATERNAL GRAND FATHER: PATERNAL GRAND MOTHER: , CANCER MATERNAL GRAND FATHER: MATERNAL GRAND MOTHER: 2 BROTHER(S) , 1 SISTER(S) . 1 SON(S) , 1 DAUGHTER(S) . BROTHER HAS HYPERTENSION,TRIPLE BYPASS SURGERY.SISTER FROM EMPHYSEMA.ONE BROTHER FROM PULMONARY EMBOLISM. Social History * Smoker: former Smoker Alcohol: Denies Drugs: denies A-FIB/CHADSVASC A-FIB History Current/History of A-Fib/PAF?: No Review of Systems Constitutional: Reports: Weakness, Fatigue; Denies: Chills, Fever, Night Sweats Eyes: Denies: Pain, Vision change ENT: Denies: Head Aches, Ear Pain, Dysphagia Skin: Reports: Bruising (on the right from the hip, buttocks, both legs. ), Breakdown (laceration on the right arm from elbow to axilla on medical side, a small one on the lower lateral part) Pulmonary: Denies: Dyspnea, Cough Cardiovascular: Denies: Chest Pain, Palpitations, Orthopnea, Paroxysmal Noc. Dyspnea, Lt Headedness Gastrointestinal: Denies: Nausea, Vomiting, Abdominal Pain, Diarrhea Genitourinary: Denies: Dysuria, Frequency, Incontinence, Retention Hematologic: Denies: Bruising, Bleeding Excessively Musculoskeletal: Reports: Back Pain, Leg Pain, Joint Pain, Muscle Pain Neurological: Reports: Weakness (right upper extremity), Numbness (right upper extremity); Denies: Change in speech, Confusion Psych: Reports: Mood Normal; Denies: Depression, Memory Issues Physical Examination General Exam: Positive: Alert, Cooperative, No Acute Distress Eye Exam: Positive: PERRLA, Conjunctiva & lids normal, EOMI; Negative: Sclera icteric ENT Exam: Positive: Atraumatic, Mucous membr. moist/pink, Pharynx Normal Neck Exam: Positive: Supple; Negative: JVD, thyromegaly Chest Exam: Positive: Clear to auscultation, Normal air movement Heart Exam: Positive: Tachycardic, Regular Rhythm, Normal S1, Normal S2; Negative: Murmurs, Rubs Telemetry: Positive: No significant arrhythmia Abdomen Exam: Positive: Normal bowel sounds, Soft; Negative: Tenderness, Hepatospenomegaly Extremity Exam: Positive: Other (swelling, bruising on the right hip and whole buttock extending down the thigh); Negative: Clubbing, Cyanosis, Edema Skin Exam: Positive: Breakdown (lacerations on the right arm) Neuro Exam: Positive: Normal Speech, Other (0/5 power on the right upper extremity) Psych Exam: Positive: Mental status NL, Mood NL, Oriented x 3 Vital Signs Vital Signs Date Time Temp Pulse Resp B/P (MAP) Pulse Ox O2 Delivery O2 Flow Rate FiO2 11/26/18 16:24 97.7 107 20 158/71 (100) 97 Room Air 11/26/18 13:15 2.0 Laboratory Data Labs 24H Laboratory Tests 2 11/26/18 12:29: Immature Granulocyte % (Auto) 0.4, White Blood Count 16.9H, Red Blood Count 4.89, Hemoglobin 16.0H, Hematocrit 46.5, Mean Corpuscular Volume 95.1, Mean Redd uscular Hemoglobin 32.7, Mean Corpuscular Hemoglobin Concent 34.4, Red Cell Distribution Width 13.0, Platelet Count 281, Neutrophils (%) (Auto) 87.1H, Lymphocytes (%) (Auto) 4.0L, Monocytes (%) (Auto) 8.4H, Eosinophils (%) (Auto) 0.0, Basophils (%) (Auto) 0.1, Neutrophils # (Auto) 14.8H, Lymphocytes # (Auto) 0.7L, Monocytes # (Auto) 1.4H, Eosinophils # (Auto) 0.0, Basophils # (Auto) 0.0, Nucleated Red Blood Cells % (auto) 0.0, Anion Gap 10, Glomerular Filtration Rate > 60.0, Blood Urea Nitrogen 32H, Creatinine 0.51L, Sodium Level 139, Potassium Level 3.6, Chloride Level 104, Carbon Dioxide Level 25, Calcium Level 8.8, Total Creatine Kinase 6864H 11/26/18 12:56: Prothrombin Time 14.1H, Prothromb Time International Ratio 1.12, Activated Partial Thromboplast Time 28.4 CBC/BMP Laboratory Tests 11/26/18 12:29 Red Blood Count 4.89, Mean Corpuscular Volume 95.1, Mean Corpuscular Hemoglobin 32.7, Mean Corpuscular Hemoglobin Concent 34.4, Red Cell Distribution Width 13.0, Neutrophils (%) (Auto) 87.1 H, Lymphocytes (%) (Auto) 4.0 L, Monocytes (%) (Auto) 8.4 H, Eosinophils (%) (Auto) 0.0, Basophils (%) (Auto) 0.1, Neutrophils # (Auto) 14.8 H, Lymphocytes # (Auto) 0.7 L, Monocytes # (Auto) 1.4 H, Eosinophils # (Auto) 0.0, Basophils # (Auto) 0.0, Calcium Level 8.8 Assessment/Plan 73 year old female with Schizophrenia, anxiety disorder, hypertension, COPD/Chronic asthma , mild to moderate pulmonary hypertension, Hypertensive heart disease with grade 1 diastolic dysfunction presented to the ED after a fall and being on the floor with right arm trapped in between bed rails hanging from the bed for about 36 hours. She was found to have a open right humerus fracture. There was a laceration from the anticubital fossa to the axilla on the right medial side another smaller laceration near the elbow on the lateral side. She did not have any power in the right arm but had good pulses. It was felt that she has brachial plexus injury from the prolonged stretching. Multiple right sided rib fractures. She was also noted to have rhabdomyolysis. Medical clearance No history of CKD or DM or CAD or CHF or stroke or TIA Denies any chest pain however does say gets winded sometimes. But she has copd with emphysema in [place] CX[place] which is probably the reason. EKG sinus tachycardia. Echo in 2019: Ef of 65%, grade 1 diastolic dysfunction, mild to moderate pulmonary hypertension, hypertensive heart disease there is so signs of heart failure. Patient is euvolemic Patient is moderate cardiac risk for the proposed procedure but is medially optimized for the surgery and can proceed with surgery. Hold lovenox on the morning of surgery. Open Right Humerus fracture with dislocation cleaned and casted by ortho will be going to OR for fixation in the next 24 to 48 hours pain control by morphine and toradol dvt prophylaxis as per ortho Multiple right sided rib fractures incentive spirometry. Extensive soft tissue injury and hematoma extending from right hip and buttocks down the thigh pain control at above monitor hh Rhabdomyolysis continue IVF but watch for fluid overload. Schizophrnia nd anxiety disorder continue home meds. Hypertension with hypertensive heart disease continue diltiazem COPD / Chronic asthma continue symbicort and montelukast and albuterol prn Overdistended bladder in CT pelvis check post void residual. Plan / VTE VTE Prophylaxis Ordered?: Yes ANGELLA TORREZ MD Nov 26, 2018 17:28
[2018-11-26] MEDS: ceFAZolin SOD 1 GM in D5W MINI-BAG PLUS 50 ML IV SCH (22:36)
[2018-11-27 00:43] VITALS: BP 166/72
[2018-11-27] MEDS: VERAPAMIL 40 MG TAB PO SCH ×3 (00:52→17:15)
[2018-11-27] MEDS ORDERED: ACETAMINOPHEN TAB 650MG DOSE (2X325MG) PO PRN (02:15)
[2018-11-27] MEDS: KETOROLAC 30 MG/ML VIAL (J1885) IV PRN (03:24)
[2018-11-27 05:56] LABS: BASO % 0.1 % (0.0-1.0); HEMATOCRIT 36.9 % (36.0-47.0); LYMPH % 5.5 % (24.0-44.0); MEAN CORPUSCULAR HEMOGLOBIN 32.4 pg (27.0-33.0); MEAN CORPUSCULAR VOLUME 92.7 fl (80.0-96.0); MONO # 1.7 10^3/uL (0.0-0.8); MONO % 9.2 % (0.0-5.0); NEUTROPHILS # 15.7 10^3/uL (1.5-8.5); NEUTROPHILS % 84.7 % (36.0-66.0); PLATELET COUNT, AUTOMATED 223 10^3/uL (150-450); RED BLOOD COUNT 3.98 10^6/uL (4.00-5.40); WHITE BLOOD COUNT 18.5 10^3/uL (4.0-10.0)
[2018-11-27 06:03] VITALS: BP 129/67
[2018-11-27 06:03] LABS: HEMOGLOBIN 12.9 g/dl (12.0-15.5)
[2018-11-27] MEDS: ceFAZolin SOD 1 GM in D5W MINI-BAG PLUS 50 ML IV SCH ×3 (06:11→22:49)
[2018-11-27] MEDS ORDERED: PERCOCET 5MG/325MG TAB PO PRN (06:15)
[2018-11-27 06:53] LABS: BLOOD UREA NITROGEN 31 MG/DL (7-18); CALCIUM LEVEL 8.3 MG/DL (8.8-10.2); CARBON DIOXIDE LEVEL 23 MEQ/L (21-32); CHLORIDE LEVEL 103 MEQ/L (98-107); CPK CREATINE PHOSPHOKINASE 6928 U/L (26-192); CREATININE FOR GFR 0.56 MG/DL (0.55-1.30); GLOMERULAR FILTRATION RATE > 60.0 (>39); GLUCOSE, FASTING 130 MG/DL (70-100); POTASSIUM SERUM 3.2 MEQ/L (3.5-5.1); SODIUM LEVEL 135 MEQ/L (136-145)
[2018-11-27] MEDS: SYMBICORT 160/4.5MCG INHALER 6GM INH SCH ×2 (07:50→20:48)
[2018-11-27] MEDS: MONTELUKAST 10 MG TAB PO SCH (08:37)
[2018-11-27] MEDS: SERTRALINE 100 MG TAB PO SCH (08:37)
[2018-11-27] MEDS: THIAMINE 100 MG TAB PO SCH (08:37)
[2018-11-27] MEDS: DOCUSATE SODIUM 100 MG CAP PO SCH ×2 (08:37→20:59)
[2018-11-27] MEDS: GABAPENTIN 100 MG CAP PO SCH (08:37)
[2018-11-27] MEDS: MIRALAX *UNIT DOSE* 17GM PACKET PO SCH (08:37)
[2018-11-27] MEDS: CYANOCOBALAMIN 500 MCG TAB PO SCH (08:38)
[2018-11-27] MEDS: NS 1,000 ML IV SCH (08:39)
[2018-11-27] MEDS ORDERED: ENOXAPARIN 30 MG/0.3 ML SYR (J1650) SC SCH (09:00)
[2018-11-27] MEDS ORDERED: ENOXAPARIN 40 MG/0.4 ML SYRINGE (J1650) SC SCH (09:00)
[2018-11-27] MEDS ORDERED: diltiaZEM **CD** 180 MG CAP PO SCH (09:00)
[2018-11-27] MEDS: PYRIDOXINE 50 MG TAB PO SCH (09:53)
[2018-11-27] MEDS: PERCOCET 5MG/325MG TAB PO PRN ×3 (10:35→21:00)
--- NOTE | 2018-11-27 13:37 | IPNPDOC ---
Subjective Date Seen The patient was seen on 11/27/18. Subjective Chief Complaint/HPI Does not offer any new complaints today except for arm pain. still cannot move her fingers of the right hand. planned for surgery tomorrow. Had a low grade fever last night. Objective Physical Examination General Exam: Positive: Alert, Cooperative, No Acute Distress Eye Exam: Positive: PERRLA, Conjunctiva & lids normal, EOMI; Negative: Sclera icteric ENT Exam: Positive: Atraumatic, Mucous membr. moist/pink, Pharynx Normal Neck Exam: Positive: Supple; Negative: JVD, thyromegaly Chest Exam: Positive: Clear to auscultation, Normal air movement Heart Exam: Positive: Tachycardic, Regular Rhythm, Normal S1, Normal S2; Negative: Murmurs, Rubs Telemetry: Positive: No significant arrhythmia Abdomen Exam: Positive: Normal bowel sounds, Soft; Negative: Tenderness, Hepatospenomegaly Extremity Exam: Positive: Other (swelling, bruising on the right hip and whole buttock extending down the thigh); Negative: Clubbing, Cyanosis, Edema Skin Exam: Positive: Breakdown (lacerations on the right arm) Neuro Exam: Positive: Normal Speech, Other (0/5 power on the right upper e xtremity) Psych Exam: Positive: Mental status NL, Mood NL, Oriented x 3 Assessment /Plan Assessment 73 year old female with Schizophrenia, anxiety disorder, hypertension, COPD/Chronic asthma , mild to moderate pulmonary hypertension, Hypertensive heart disease with grade 1 diastolic dysfunction presented to the ED after a fall and being on the floor with right arm trapped in between bed rails hanging from the bed for about 36 hours. She was found to have a open right humerus fracture. There was a laceration from the anticubital fossa to the axilla on the right medial side another smaller laceration near the elbow on the lateral side. She did not have any power in the right arm but had good pulses. It was felt that she has brachial plexus injury from the prolonged stretching. Multiple right sided rib fractures. She was also noted to have rhabdomyolysis. Medical clearance No history of CKD or DM or CAD or CHF or stroke or TIA Denies any chest pain however does say gets winded sometimes. But she has copd with emphysema in [facility] CXR which is probably the reason. EKG sinus tachycardia. Echo in 2019: Ef of 65%, grade 1 diastolic dysfunction, mild to moderate pulmonary hypertension, hypertensive heart disease there is so signs of heart failure. Patient is euvolemic Patient is moderate cardiac risk for the proposed procedure but is medially optimized for the surgery and can proceed with surgery. Hold lovenox on the morning of surgery. Open Right Humerus fracture with dislocation cleaned and casted by ortho will be going to OR for fixation in the next 24 to 48 hours pain control by morphine and toradol dvt prophylaxis as per ortho continue cefazolin Multiple right sided rib fractures incentive spirometry. Extensive soft tissue injury and hematoma extending from right hip and buttocks down the thigh pain control at above monitor hh Rhabdomyolysis CPK is unchanged. continue IVF but watch for fluid overload. Schizophrnia and anxiety disorder continue home meds. Hypertension with hypertensive heart disease continue diltiazem COPD / Chronic asthma continue symbicort and montelukast and albuterol prn Overdistended bladder in CT pelvis check post void residual. Plan/VTE VTE Prophylaxis Ordered?: Yes VS, [facility] Sign[facility]/I&O Vital Signs Date Time Temp Pulse Resp B/P (MAP) Pulse Ox O2 Delivery O2 Flow Rate FiO2 11/27/18 10:35 18 11/27/18 08:38 99 129/67 11/27/18 06:03 98.4 92 11/26/18 16:24 Room Air 11/26/18 13:15 2.0 I&O- Last 24 Hours up to 6 AM 11/27/18 06:00 Intake Total 3120 ml Output Total 3100 ml Balance 20 ml Laboratory Data 24H LABS Laboratory Tests 2 11/27/18 05:34: Immature Granulocyte % (Auto) 0.5, White Blood Count 18.5H, Red Blood Count 3.98L, Hemoglobin 12.9#, Hematocrit 36.9, Mean Corpuscular Volume 92.7, Mean Corpuscular Hemoglobin 32.4, Mean Corpuscular Hemoglobin Concent 35.0, Red Cell Distribution Width 13.2, Platelet Count 223, Neutrophils (%) (Auto) 84.7H, Lymphocytes (%) (Auto) 5.5L, Monocytes (%) (Auto) 9.2H, Eosinophils (%) (Auto) 0.0, Basophils (%) (Auto) 0.1, Neutrophils # (Auto) 15.7H, Lymphocytes # (Auto) 1.0L, Monocytes # (Auto) 1.7H, Eosinophils # (Auto) 0.0, Basophils # (Auto) 0.0, Nucleated Red Blood Cells % (auto) 0.0, Anion Gap 9, Glomerular Filtration Rate > 60.0, Blood Urea Nitrogen 31H, Creatinine 0.56, Sodium Level 135L, Potassium Level 3.2L, Chloride Level 103, Carbon Dioxide Level 23, Calcium Level 8.3L, Total Creatine Kinase 6928H CBC/BMP Laboratory Tests 11/27/18 05:34 Red Blood Count 3.98 L, Mean Corpuscular Volume 92.7, Mean Corpuscular Hemoglobin 32.4, Mean Corpuscular Hemoglobin Concent 35.0, Red Cell Distribution Width 13.2, Neutrophils (%) (Auto) 84.7 H, Lymphocytes (%) (Auto) 5.5 L, Monocytes (%) (Auto) 9.2 H, Eosinophils (%) (Auto) 0.0, Basophils (%) (Auto) 0.1, Neutrophils # (Auto) 15.7 H, Lymphocytes # (Auto) 1.0 L, Monocytes # (Auto) 1.7 H, Eosinophils # (Auto) 0.0, Basophils # (Auto) 0.0, Calcium Level 8.3 L ANGELLA TORREZ MD Nov 27, 2018 13:37
[2018-11-27 14:00] VITALS: BP 132/60
[2018-11-27] MEDS: KCL 40MEQ in NS 1000ML 1,000 ML IV SCH (14:47)
[2018-11-27] MEDS ORDERED: FUROSEMIDE 100 MG/10 ML VIAL (J1940) IV ONE (15:30)
[2018-11-27] MEDS ORDERED: MORPHINE 4 MG/ML 1ML VIAL/SYRINGE (J2270) IV ONE (15:30)
[2018-11-27] MEDS: clonazePAM 0.5 MG TAB PO PRN (17:15)
[2018-11-27 21:05] VITALS: BP 162/72
[2018-11-28] MEDS: VERAPAMIL 40 MG TAB PO SCH ×4 (00:49→23:26)
[2018-11-28] MEDS: PERCOCET 5MG/325MG TAB PO PRN ×3 (04:23→14:52)
--- NOTE | 2018-11-28 05:55 | ER ---
DATE OF CONSULTATION: 11/26/2018 CHIEF COMPLAINT: Right arm pain. HISTORY OF PRESENT ILLNESS: This is a pleasant 73-year-old female with a history schizophrenia, anxiety disorder, hypertension, chronic obstructive pulmonary disease (COPD), chronic asthma that presented to the emergency room (ER) after a fall at home. This happened about a day and half earlier. She complained of severe pain as her arm was trapped between the rails of her hospital bed. The pain was made worse with movement, alleviated with immobilization and pain medication. She also complained of some bleeding from her arm as well. She also states that she could not move her fingers. Cannot feel anything distal to her elbow. As her phone was out of reach, she unfortunately had to drag the bed with her arm attached to the other room in order to get to a phone. When emergency medical service (EMS) found her, she was cold and pulseless in that arm. However, once extricating from the bed, pulses returned. She denies any pain elsewhere other than her right arm. The pain is severe and it is sharp. She complains of numbness to her right hand and lower arm and elbow with inability to move the elbow and hand. Denies any pain elsewhere in her body. Complete 10-system review was conducted. Pertinent positives and negatives in history of present illness (HPI). All other systems negative. HOME MEDICATIONS: Patient is on: - aspirin - budesonide - formoterol - vitamin B12 - Lasix - gabapentin - montelukast - multivitamin - vitamin B6 - Zoloft - thiamine - verapamil - Prevagen ALLERGIES: Patient has allergies to LATEX and BEE VENOM. Patient has a past medical history of schizophrenia, anxiety disorder, hypertension, COPD, asthma, emphysema, nodule on her thyroid, cataracts, left breast lump, diverticulosis. PAST SURGICAL HISTORY: Including thyroid nodule aspiration, (C) section, dilation and curettage (D and C), hysterectomy, and colonoscopy. She has a social history of a former smoker. Denies any alcohol or drug use. Her is currently in [place] [facility]. PHYSICAL EXAMINATION: Patient is awake, alert, and oriented, well dressed, appropriate affect, breathing unlabored on room air. Left upper extremity: No tenderness to palpation. Full active range of motion. Skin is intact. No swelling or ecchymosis. Radial pulse 2+, regular rate. Positive anterior interosseous nerve (AIN), posterior interosseous nerve (PIN), and ulnar motor nerve function. Sensation intact to light touch superficial sensory branch of the radial nerve, median nerve, and ulnar nerve. Full range of motion painless of the hand, elbow, and shoulder. Bilateral lower extremities: No tenderness to palpation. Full active range of motion of hips, knees, and foot. Posterior tibial pulse 2+ regular rate. Skin is intact. No swelling or ecchymosis. Positive extensor hallucis longus (EHL) flexor hallucis longus (FHL), tibial, and gastrocs. Motor function superficial peroneal, deep peroneal, sural, saphenous, tibial distribution sensation intact to light touch. Negative for [place] testing. Right upper extremity: There is a 4 cm laceration in the patient's axilla along with a 2 cm laceration on the lateral aspect of the elbow. It is tender to palpation grossly about the mid arm. There is swelling present and ecchymosis. Sensation intact to light touch in axillary distribution. However, distal to the mid forearm, she has dense lack of sensation completely involving the elbow, forearm, and hand. She has zero motor involvement of the hand and elbow. However, elbow is difficult to evaluate due to the fracture. Radial pulse is 2+, regular rate. Imaging reviewed of the shoulder, humerus, and elbow demonstrating a mid shaft transverse fracture of the humerus. 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 I discussed with the patient that given her neuropathy and the open fracture, I think it wisest to irrigate the wounds and close them along with fixation of the fracture. This would give her the best function moving forward, especially with this brachial plexopathy as she likely at this point has a flail extremity. With regard to her brachial plexopathy, it is unclear whether or not this will return with function; but in the meantime, postoperatively, we will arrange for a splint fabrication to place her hand in the intrinsic plus position and a thumb spica along with hand therapy in order to keep her joint soft and supple in case they do return that way she does not have a stiff hand. Patient will be nothing by mouth at midnight. We plan for operative intervention tomorrow evening. Please continue IV Ancef until this time to help decrease the risk of infection. Consent was obtained, and splint was fabricated. All risks and benefits of the procedure were discussed including, but not limited to, infection, malunion, nonunion, damage to surrounding structures. Please make him nothing by mouth night of 11/27/2018.
[2018-11-28] MEDS: ceFAZolin SOD 1 GM in D5W MINI-BAG PLUS 50 ML IV SCH ×2 (06:01→13:49)
[2018-11-28 06:33] LABS: BASO % 0.1 % (0.0-1.0); EOS # 0.1 10^3/uL (0.0-0.5); EOS % 0.5 % (0.0-3.0); HEMATOCRIT 32.7 % (36.0-47.0); HEMOGLOBIN 11.2 g/dl (12.0-15.5); LYMPH # 1.2 10^3/uL (1.5-5.0); LYMPH % 8.4 % (24.0-44.0); MEAN CORPUSCULAR HEMOGLOBIN 33.2 pg (27.0-33.0); MEAN CORPUSCULAR HGB CONC 34.3 g/dl (32.0-36.5); MONO # 0.9 10^3/uL (0.0-0.8); NEUTROPHILS # 12.3 10^3/uL (1.5-8.5); NEUTROPHILS % 84.5 % (36.0-66.0); PLATELET COUNT, AUTOMATED 191 10^3/uL (150-450); RED BLOOD COUNT 3.37 10^6/uL (4.00-5.40); WHITE BLOOD COUNT 14.6 10^3/uL (4.0-10.0)
[2018-11-28 06:51] LABS: BLOOD UREA NITROGEN 19 MG/DL (7-18); CALCIUM LEVEL 8.6 MG/DL (8.8-10.2); CARBON DIOXIDE LEVEL 25 MEQ/L (21-32); CHLORIDE LEVEL 102 MEQ/L (98-107); CREATININE FOR GFR 0.44 MG/DL (0.55-1.30); GLOMERULAR FILTRATION RATE > 60.0 (>39); GLUCOSE, FASTING 125 MG/DL (70-100); POTASSIUM SERUM 3.7 MEQ/L (3.5-5.1); SODIUM LEVEL 133 MEQ/L (136-145)
[2018-11-28] MEDS: SYMBICORT 160/4.5MCG INHALER 6GM INH SCH ×2 (08:03→20:47)
[2018-11-28] MEDS: MIRALAX *UNIT DOSE* 17GM PACKET PO SCH (09:00)
[2018-11-28] MEDS: GABAPENTIN 100 MG CAP PO SCH (09:45)
[2018-11-28] MEDS: SERTRALINE 100 MG TAB PO SCH (09:45)
[2018-11-28] MEDS: MONTELUKAST 10 MG TAB PO SCH (09:45)
[2018-11-28] MEDS: PYRIDOXINE 50 MG TAB PO SCH (09:45)
[2018-11-28] MEDS: THIAMINE 100 MG TAB PO SCH (09:45)
[2018-11-28] MEDS: DOCUSATE SODIUM 100 MG CAP PO SCH ×2 (09:45→23:27)
[2018-11-28] MEDS: KCL 40MEQ in NS 1000ML 1,000 ML IV SCH (09:45)
[2018-11-28] MEDS: CYANOCOBALAMIN 500 MCG TAB PO SCH (09:46)
--- NOTE | 2018-11-28 12:15 | IPNPDOC ---
Subjective Date Seen The patient was seen on 11/28/18. Subjective Chief Complaint/HPI Patient complaining of pain at the site. No other complaints Cardiovascular: Denies: Chest Pain, Palpitations, Orthopnea, Paroxysmal Noc. Dyspnea, Edema, Lt Headedness, Other Symptoms Gastrointestinal: Denies: Nausea, Vomiting, Abdominal Pain, Diarrhea, Constipation, Melena, Hematochezia, Other Symptoms Endocrine: Denies: Polydipsia, Polyphagia, Polyuria, Heat Intolerance, Cold Intolerance, Other Endocrine Sx Musculoskeletal: Denies: Neck Pain, Back Pain, Shoulder Pain, Arm Pain, Hand Pain, Leg Pain, Foot Pain, Joint Pain, Muscle Pain, Spasms, Other Symptoms Neurological: Denies: Weakness, Numbness, Incoordination, Change in speech, Confusion, Seizures, Other Symptoms Objective Physical Examination Eye Exam: Negative: Sclera icteric Neck Exam: Positive: Supple Chest Exam: Positive: Clear to auscultation, Normal air movement Heart Exam: Positive: Tachycardic, Regular Rhythm, Normal S1, Normal S2 Telemetry: Positive: No significant arrhythmia Abdomen Exam: Positive: Normal bowel sounds, Soft Extremity Exam: Positive: Other (swelling, bruising on the right hip and whole buttock extending down the thigh) Skin Exam: Positive: Breakdown (lacerations on the right arm) Neuro Exam: Positive: Normal Speech, Other (0/5 power on the right upper extremity) Assessment /Plan Problems (1) Open fracture of right humerus Status: Acute Problem Text: Tahir consult noted Patient is scheduled for ORIF of right humerus Pain management Further, as per orthopedic PT, OT postop (2) Brachial plexus injury, right Status: Acute Problem Text: Patient will probably need long-term rehabilitation . She also needed a special splint as recommended by orthopedic Physical therapy and occupation therapy postop (3) Schizophrenia Status: Acute Problem Text: Continue home meds stable (4) Rhabdomyolysis Status: Acute Problem Text: Improving Continue IV fluids , Check CKs in a.m. Plan/VTE VTE Prophylaxis Ordered?: Yes VS, I&O, 24H, Fishbone Vital Signs/I&O Vital Signs Date Time Temp Pulse Resp B/P (MAP) Pulse Ox O2 Delivery O2 Flow Rate FiO2 11/28/18 10:18 18 11/28/18 09:46 108 152/80 11/27/18 21:05 98.6 91 11/26/18 16:24 Room Air 11/26/18 13:15 2.0 I&O- Last 24 Hours up to 6 AM 11/28/18 06:00 Intake Total 3690 ml Output Total 3600 ml Balance 90 ml Laboratory Data 24H LABS Laboratory Tests 2 11/28/18 05:58: Immature Granulocyte % (Auto) 0.5, White Blood Count 14.6H, Red Blood Count 3.37L, Hemoglobin 11.2L, Hematocrit 32.7L, Mean Corpuscular Volume 97.0H, Mean Corpuscular Hemoglobin 33.2H, Mean Corpuscular Hemoglobin Concent 34.3, Red Cell Distribution Width 13.2, Platelet Count 191, Neutrophils (%) (Auto) 84.5H, Lymphocytes (%) (Auto) 8.4L, Monocytes (%) (Auto) 6.0H, Eosinophils (%) (Auto) 0.5, Basophils (%) (Auto) 0.1, Neutrophils # (Auto) 12.3H, Lymphocytes # (Auto) 1.2L, Monocytes # (Auto) 0.9H, Eosinophils # (Auto) 0.1, Basophils # (Auto) 0.0, Nucleated Red Blood Cells % (auto) 0.0, Anion Gap 6L, Glomerular Filtration Rate > 60.0, Blood Urea Nitrogen 19H, Creatinine 0.44L, Sodium Level 133L, Potassium Level 3.7, Chloride Level 102, Carbon Dioxide Level 25, Calcium Level 8.6L CBC/BMP Laboratory Tests 11/28/18 05:58 Red Blood Count 3.37 L, Mean Corpuscular Volume 97.0 H, Mean Corpuscular Hemoglobin 33.2 H, Mean Corpuscular Hemoglobin Concent 34.3, Red Cell Distribution Width 13.2, Neutrophils (%) (Auto) 84.5 H, Lymphocytes (%) (Auto) 8.4 L, Monocytes (%) (Auto) 6.0 H, Eosinophils (%) (Auto) 0.5, Basophils (%) (Auto) 0.1, Neutrophils # (Auto) 12.3 H, Lymphocytes # (Auto) 1.2 L, Monocytes # (Auto) 0.9 H, Eosinophils # (Auto) 0.1, Basophils # (Auto) 0.0, Calcium Level 8.6 L CHANNING MURRELL MD Nov 28, 2018 12:15
[2018-11-28 14:00] VITALS: BP 123/61
[2018-11-28] MEDS ORDERED: PROPOFOL 200 MG/20 ML VIAL As Ordered ONE (18:14)
[2018-11-28] MEDS ORDERED: LIDOCAINE 2% INJ 100 MG/5 ML SDV (FOR ANES.) As Ordered ONE (18:14)
[2018-11-28] MEDS ORDERED: fentaNYL 100 MCG/2 ML INJECTION (J3010) As Ordered ONE ×2 (18:15→21:27)
[2018-11-28] MEDS ORDERED: dexameTHASONE 4 MG/ML 1ML VIAL (J1100) As Ordered ONE (18:16)
[2018-11-28] MEDS ORDERED: ONDANSETRON 4MG/2ML VIAL (J2405) As Ordered ONE ×2 (18:16→21:27)
[2018-11-28] MEDS ORDERED: SUGAMMADEX SODIUM 500 MG/5 ML VIAL (BRIDION) As Ordered ONE (18:28)
[2018-11-28] MEDS ORDERED: ceFAZolin 2 GM/D5W 50 ML IV BAG (J0690 PER 500MG) As Ordered ONE (19:00)
[2018-11-28] MEDS ORDERED: oxyCODONE 5MG TAB As Ordered ONE ×2 (21:27→22:06)
[2018-11-28] MEDS: fentaNYL 100 MCG/2 ML INJECTION (J3010) IV PRN ×4 (21:36→22:02)
[2018-11-28] MEDS ORDERED: KETOROLAC 30 MG/ML VIAL (J1885) As Ordered ONE (21:41)
[2018-11-28] MEDS: oxyCODONE 5MG TAB PO PRN ×2 (21:44→22:07)
[2018-11-28] MEDS ORDERED: LR 1,000 ML IV SCH (21:45)
[2018-11-28] MEDS ORDERED: ONDANSETRON 4MG/2ML VIAL (J2405) IV PRN (21:45)
[2018-11-28] MEDS: KETOROLAC 30 MG/ML VIAL (J1885) IV PRN (21:46)
[2018-11-28 22:28] VITALS: BP 135/72
[2018-11-28 23:12] VITALS: BP 150/63
[2018-11-29 00:13] VITALS: BP 147/63
[2018-11-29 01:02] VITALS: BP 147/61
[2018-11-29 02:00] VITALS: BP 147/63
[2018-11-29 03:00] VITALS: BP 146/64
[2018-11-29] MEDS: ceFAZolin SOD 1 GM in D5W MINI-BAG PLUS 50 ML IV SCH ×3 (03:56→18:35)
[2018-11-29] MEDS: PERCOCET 5MG/325MG TAB PO PRN ×3 (06:10→20:28)
[2018-11-29 06:57] LABS: BASO % 0.1 % (0.0-1.0); HEMATOCRIT 32.4 % (36.0-47.0); HEMOGLOBIN 10.7 g/dl (12.0-15.5); LYMPH # 0.4 10^3/uL (1.5-5.0); LYMPH % 3.2 % (24.0-44.0); MEAN CORPUSCULAR HEMOGLOBIN 32.1 pg (27.0-33.0); MEAN CORPUSCULAR VOLUME 97.3 fl (80.0-96.0); MONO # 0.5 10^3/uL (0.0-0.8); MONO % 3.3 % (0.0-5.0); NEUTROPHILS # 12.6 10^3/uL (1.5-8.5); NEUTROPHILS % 92.8 % (36.0-66.0); PLATELET COUNT, AUTOMATED 241 10^3/uL (150-450); RED BLOOD COUNT 3.33 10^6/uL (4.00-5.40); WHITE BLOOD COUNT 13.6 10^3/uL (4.0-10.0)
[2018-11-29 07:59] LABS: ALBUMIN 2.1 GM/DL (3.2-5.2); ALT/SGPT 64 U/L (12-78); BILIRUBIN,TOTAL 0.4 MG/DL (0.2-1.0); BLOOD UREA NITROGEN 15 MG/DL (7-18); CALCIUM LEVEL 8.8 MG/DL (8.8-10.2); CARBON DIOXIDE LEVEL 27 MEQ/L (21-32); CHLORIDE LEVEL 106 MEQ/L (98-107); CPK CREATINE PHOSPHOKINASE 1409 U/L (26-192); CREATININE FOR GFR 0.46 MG/DL (0.55-1.30); GLOMERULAR FILTRATION RATE > 60.0 (>39); GLUCOSE, FASTING 181 MG/DL (70-100); POTASSIUM SERUM 4.6 MEQ/L (3.5-5.1); SODIUM LEVEL 138 MEQ/L (136-145)
[2018-11-29] MEDS: SYMBICORT 160/4.5MCG INHALER 6GM INH SCH ×2 (08:37→20:55)
[2018-11-29] MEDS: MIRALAX *UNIT DOSE* 17GM PACKET PO SCH (08:47)
[2018-11-29] MEDS: VERAPAMIL 40 MG TAB PO SCH ×2 (08:47→17:28)
[2018-11-29] MEDS: PYRIDOXINE 50 MG TAB PO SCH (08:47)
[2018-11-29] MEDS: SERTRALINE 100 MG TAB PO SCH (08:48)
[2018-11-29] MEDS: THIAMINE 100 MG TAB PO SCH (08:48)
[2018-11-29] MEDS: MONTELUKAST 10 MG TAB PO SCH (08:48)
[2018-11-29] MEDS: DOCUSATE SODIUM 100 MG CAP PO SCH ×3 (08:48→20:29)
[2018-11-29] MEDS: GABAPENTIN 100 MG CAP PO SCH (08:48)
[2018-11-29] MEDS: CYANOCOBALAMIN 500 MCG TAB PO SCH (08:48)
--- NOTE | 2018-11-29 11:12 | IPNPDOC ---
Subjective Date Seen The patient was seen on 11/29/18. Subjective Chief Complaint/HPI Patient feels much better, status post right humeral surgery. Eat her breakfast at bedside with the left hand without any problems General: Denies: ROS Unobtainable, Chills, Night Sweats, Fatigue, Malaise, Normal Appetite, Other Symptoms Constitutional: Denies: Chills, Fever, Malaise, Night Sweats, Weakness, Fatigue, Weight Loss, Lethargy, Other Skin: Denies: Rash, Lesions, Jaundice, Bruising, Itching, Dry, Breakdown, Nail Changes, Other Pulmonary: Denies: Dyspnea, Cough, Pleuritic Chest Pain, Other Symptoms Cardiovascular: Denies: Chest Pain, Palpitations, Orthopnea, Paroxysmal Noc. Dyspnea, Edema, Lt Headedness, Other Symptoms Gastrointestinal: Denies: Nausea, Vomiting, Abdominal Pain, Diarrhea, Consti pation, Melena, Hematochezia, Other Symptoms Musculoskeletal: Reports: Other Symptoms Neurological: Denies: Weakness, Numbness, Incoordination, Change in speech, Confusion, Seizures, Other Symptoms Psych: Denies: Mood Normal, Anxiety, Depression, Memory Issues, Thoughts of Self Harm, Anger, Thoughts of Harming Other, Other Psych Objective Physical Examination Neck Exam: Positive: Supple Chest Exam: Positive: Clear to auscultation, Normal air movement Heart Exam: Positive: Tachycardic, Regular Rhythm, Normal S1, Normal S2 Telemetry: Positive: No significant arrhythmia Abdomen Exam: Positive: Normal bowel sounds, Soft Extremity Exam: Positive: Other (splinted the right arm) Skin Exam: Positive: Breakdown (lacerations on the right arm) Neuro Exam: Positive: Normal Speech, Other (0/5 power on the right upper extremity) Assessment /Plan Problems (1) Open fracture of right humerus Status: Acute Problem Text: Status post ORIF of right humerus Postop day #1 Pain management Physical therapy in progress Further, as per orthopedics Will possibly will need a rehabilitation center. Once she is cleared from ortho (2) Brachial plexus injury, right Status: Acute Problem Text: Patient will probably need long-term rehabilitation . She also needed a special splint as recommended by orthopedic Physical therapy and occupation therapy postop (3) Schizophrenia Status: Acute Problem Text: Continue home meds stable (4) Rhabdomyolysis Status: Acute Problem Text: Improving Continue IV fluids , Check CKs in a.m. Plan/VTE VTE Prophylaxis Ordered?: Yes VS, I&O, 24H, [facility] Vital Signs/I&O Vital Signs Date Time Temp Pulse Resp B/P (MAP) Pulse Ox O2 Delivery O2 Flow Rate FiO2 11/29/18 08:47 78 146/64 11/29/18 06:40 18 11/29/18 04:46 2.0 11/29/18 03:00 98.2 97 11/26/18 16:24 Room Air l I&O- Last 24 Hours up to 6 AM 11/29/18 06:00 Intake Total 2490 ml Output Total 1350 ml Balance 1140 ml Laboratory Data 24H LABS Laboratory Tests 2 11/29/18 06:46: Immature Granulocyte % (Auto) 0.6, White Blood Count 13.6H, Red Blood Count 3.33L, Hemoglobin 10.7L, Hematocrit 32.4L, Mean Corpuscular Volume 97.3H, Mean Corpuscular Hemoglobin 32.1, Mean Corpuscular Hemoglobin Concent 33.0, Red Cell Distribution Width 13.1, Platelet Count 241, Neutrophils (%) (Auto) 92.8H, Lymphocytes (%) (Auto) 3.2L, Monocytes (%) (Auto) 3.3, Eosinophils (%) (Auto) 0.0, Basophils (%) (Auto) 0.1, Neutrophils # (Auto) 12.6H, Lymphocytes # (Auto) 0.4L, Monocytes # (Auto) 0.5, Eosinophils # (Auto) 0.0, Basophils # (Auto) 0.0, Nucleated Red Blood Cells % (auto) 0.0, Anion Gap 5L, Glomerular Filtration Rate > 60.0, Blood Urea Nitrogen 15, Creatinine 0.46L, Sodium Level 138, Potassium Level 4.6#, Chloride Level 106, Carbon Dioxide Level 27, Calcium Level 8.8, Aspartate Amino Transf (AST/SGOT) 87H, Alanine Aminotransferase (ALT/SGPT) 64, Total Creatine Kinase 1409#H, Alkaline Phosphatase 108, Total Bilirubin 0.4, Total Protein 6.0L, Albumin 2.1L, Albumin/Globulin Ratio 0.54L CBC/BMP Laboratory Tests 11/29/18 06:46 Red Blood Count 3.33 L, Mean Corpuscular Volume 97.3 H, Mean Corpuscular Hemoglobin 32.1, Mean Corpuscular Hemoglobin Concent 33.0, Red Cell Distribution Width 13.1, Neutrophils (%) (Auto) 92.8 H, Lymphocytes (%) (Auto) 3.2 L, Monocytes (%) (Auto) 3.3, Eosinophils (%) (Auto) 0.0, Basophils (%) (Auto) 0.1, Neutrophils # (Auto) 12.6 H, Lymphocytes # (Auto) 0.4 L, Monocytes # (Auto) 0.5, Eosinophils # (Auto) 0.0, Basophils # (Auto) 0.0, Calcium Level 8.8, Aspartate Amino Transf (AST/SGOT) 87 H, Alanine Aminotransferase (ALT/SGPT) 64, Total Creatine Kinase 1409 #H, Alkaline Phosphatase 108, Total Bilirubin 0.4, Total Protein 6.0 L, Albumin 2.1 L CHANNING MURRELL MD Nov 29, 2018 11:12
--- NOTE | 2018-11-29 11:27 | RO ---
DATE OF SURGERY: 11/28/2018 PREOPERATIVE DIAGNOSIS: Right open humeral shaft fracture and severe brachial plexopathy. POSTOPERATIVE DIAGNOSIS: Right open humeral shaft fracture and severe brachial plexopathy. PROCEDURE: 1. Open reduction internal fixation (ORIF) right humeral shaft fracture. 2. Irrigation and debridement open humeral fracture. 3. Complex closure of tissue with rearrangement measuring 11 x 5 cm and 3 x 2 cm. SURGEON: Omi Carter MD UX DEVELOPER: CIRO Fraser. She was instrumental for retraction during perkins portions of the procedure. ANESTHESIA: General. INDICATIONS: This is a pleasant 73-year-old female that had her arm stuck at home in her bed that suffered a fracture. She was stuck at home for a day and a half and had to drag the bed with her broken arm in it to the phone. This likely the cause of her brachial plexopathy. Due to the severe lack of muscle tone, I did not think a Alejo brace would adequately give support to this arm. Therefore we proceeded with operative intervention along with it being an open fracture. They expressed understanding and agreement and the risks and benefits were discussed including but not limited to infection, malunion, nonunion, damage to surrounding structures. ANTIBIOTICS: Ancef 2 grams. BLOOD LOSS: 200 mL. COMPLICATIONS: None. OPERATIVE DESCRIPTION OF PROCEDURE: Patient was brought back to the OR, laid supine on the table and underwent general anesthesia at which point the right arm was prepped and draped in the usual fashion. Then we had a time out. Prior to addressing the fracture, we addressed the two open wounds. The first one was the largest measuring 11 x 5 cm towards the axilla. We excised the whole area in an ellipse, debriding of all tissue, muscle and bone sharply. Once we irrigated this thoroughly with over a liter of saline, we then closed with #2-0 nylon for the skin. We then turned out attention to the lateral hole. We sharply debrided the skin, subcutaneous tissue, muscle and bone, that measured 3 x 2 cm, and closed with #2-0 nylon. We made a longitudinal incision over the anterior arm, dissecting down to the anterior fascia. Once incising the fascia, we retracted the cephalic vein laterally and biceps muscle medially. This exposed the brachialis, at which point the brachialis was split. We then identified the two fracture components. We irrigated them thoroughly and cleaned up the edges in order to get an accurate reduction. Once this was confirmed on C-arm we used an 8 hole 3.5 LCP plate to lock the bones into position. We loaded the plate in compression to help provide fracture healing. We confirmed on final x-ray, AP and lateral, adequate reduction and fixation. We were very happy with this, at which point we thoroughly irrigated the wound and closed the anterior fascia with #2-0 Vicryl and closed the subcutaneous tissue with #2-0 Vicryl and dagoberto for the skin. The patient was extubated and taken to the postanesthesia care unit (PACU) in stable condition. POSTOPERATIVE PLAN: Plan is for the patient to be non-weightbearing right upper extremity. Due to the brachial plexopathy we are arranging for a moveable splint that would give her intrinsic plus position with a thumb spica position. To keep her hands nice and supple, we would like physical therapy to continue working with her hands multiple times a day to keep the joint supple should the nerves return. She will undergo 1 gram of Ancef every 8 hours for three days due to the open fracture and wounds. Will see her in the office about two weeks after surgery for wound check and suture removal. The patient will be in a sling for comfort. No complications noted.
[2018-11-29 14:00] VITALS: BP 141/67
[2018-11-29] MEDS: clonazePAM 0.5 MG TAB PO PRN (14:01)
[2018-11-29 23:15] VITALS: BP 135/65
[2018-11-30] MEDS: VERAPAMIL 40 MG TAB PO SCH ×2 (00:35→09:26)
[2018-11-30] MEDS: ceFAZolin SOD 1 GM in D5W MINI-BAG PLUS 50 ML IV SCH (03:41)
[2018-11-30] MEDS: clonazePAM 0.5 MG TAB PO PRN (04:00)
[2018-11-30] MEDS: KETOROLAC 30 MG/ML VIAL (J1885) IV PRN (04:01)
[2018-11-30 05:19] VITALS: BP 165/79
[2018-11-30 07:14] LABS: BASO % 0.2 % (0.0-1.0); EOS # 0.1 10^3/uL (0.0-0.5); EOS % 1.2 % (0.0-3.0); HEMATOCRIT 30.7 % (36.0-47.0); LYMPH # 1.6 10^3/uL (1.5-5.0); MEAN CORPUSCULAR HEMOGLOBIN 32.9 pg (27.0-33.0); MEAN CORPUSCULAR HGB CONC 32.6 g/dl (32.0-36.5); MONO # 1.1 10^3/uL (0.0-0.8); MONO % 9.8 % (0.0-5.0); NEUTROPHILS # 7.8 10^3/uL (1.5-8.5); NEUTROPHILS % 72.8 % (36.0-66.0); PLATELET COUNT, AUTOMATED 252 10^3/uL (150-450); RED BLOOD COUNT 3.04 10^6/uL (4.00-5.40); WHITE BLOOD COUNT 10.7 10^3/uL (4.0-10.0)
[2018-11-30] MEDS ORDERED: MAGNESIUM CITRATE 300 ML BTL PO ONE (07:45)
[2018-11-30 07:46] LABS: BLOOD UREA NITROGEN 9 MG/DL (7-18); CALCIUM LEVEL 8.8 MG/DL (8.8-10.2); CARBON DIOXIDE LEVEL 32 MEQ/L (21-32); CHLORIDE LEVEL 102 MEQ/L (98-107); CREATININE FOR GFR 0.39 MG/DL (0.55-1.30); GLOMERULAR FILTRATION RATE > 60.0 (>39); GLUCOSE, FASTING 113 MG/DL (70-100); POTASSIUM SERUM 4.2 MEQ/L (3.5-5.1); SODIUM LEVEL 138 MEQ/L (136-145)
[2018-11-30] MEDS ORDERED: PEG1POW PO (08:29)
[2018-11-30] MEDS ORDERED: ACET1TAB55 PO (08:29)
[2018-11-30] MEDS ORDERED: COLA100C5 PO (08:29)
[2018-11-30] MEDS ORDERED: PERCOCET PO (08:29)
[2018-11-30] MEDS: SYMBICORT 160/4.5MCG INHALER 6GM INH SCH (08:46)
[2018-11-30 09:26] VITALS: BP 165/79
[2018-11-30] MEDS: CYANOCOBALAMIN 500 MCG TAB PO SCH (09:26)
[2018-11-30] MEDS: GABAPENTIN 100 MG CAP PO SCH (09:26)
[2018-11-30] MEDS: MIRALAX *UNIT DOSE* 17GM PACKET PO SCH (09:26)
[2018-11-30] MEDS: SERTRALINE 100 MG TAB PO SCH (09:27)
[2018-11-30] MEDS: MONTELUKAST 10 MG TAB PO SCH (09:27)
[2018-11-30] MEDS: PYRIDOXINE 50 MG TAB PO SCH (09:27)
[2018-11-30] MEDS: DOCUSATE SODIUM 100 MG CAP PO SCH (09:27)
[2018-11-30] MEDS: THIAMINE 100 MG TAB PO SCH (09:27)
--- NOTE | 2018-11-30 09:34 | REP ---
C-ARM VIEWS, RIGHT HUMERUS: Two C-ARM views right humerus are performed. There is placement of a metallic plate and multiple metallic screws in the proximal to mid humeral shaft. Four seconds of fluoroscopy time was utilized. Electronically Signed by Osorio Le MD 11/30/2018 05:34 P
[2018-11-30] MEDS: PERCOCET 5MG/325MG TAB PO PRN (10:19)
--- NOTE | 2018-11-30 13:07 | DS.PDOC ---
Discharge Summary General Date of Admission Nov 26, 2018 at 14:43 Date of Discharge 11/30/18 Discharge Summary PROCEDURES PERFORMED DURING STAY: None. ADMITTING DIAGNOSES: 1. Humeral fracture, right arm. DISCHARGE DIAGNOSES: 1. Humeral fracture right arm, brachial plexus injury ,schizophrenia, anxiety d isorder, hypertension, COPD, asthma. COMPLICATIONS/CHIEF COMPLAINT: Brachial Plexus Injury Rt Open Fx Of Rt Humerus. HISTORY OF PRESENT ILLNESS: 73 year old female with Schizophrenia, anxiety disorder, hypertension, COPD/Chronic asthma presented to the ED after a fall and being on the floor with right arm trapped in between bed rails hanging from the bed for about 36 hours. On the morning of 11/25/18 patient woke up from sleep with the right arm in between the rails of her 's hospital bed in which she was sleeping (her has ALS and has been admitted in [facility] for the past 2 weeks) tried to slide it out for an hour could not then she got out of bed still with the arm trapped and tried to get it out for another hour could not. Her phone was in the outer room up the stairs. She dragged the bed to the outer room still with arm trapped and tried to throw things at the phone to make it fall down the stairs which ultimately did come down. But by this time she had urinary incontinence on the floor and slipped down on the floor with legs under the couch with arm hanging from the bed rail heard a cracking noise then saw the bleeding start. Then she lost track of time . Her arm was not hurting in fact was numb and was bleeding and she was on the floor with the arm trapped above in the bed rail. Her son and daughter were calling her and in not getting any response since yesterday went to check on her this morning. The EMS had to unscrew the whole of the rail from the bed to get her arm out. In the ED she was found to have a open right humerus fracture. She did not have any power in the right arm but had good pulses. It was felt that she has brachial plexus injury from the prolonged stretching. She was also noted to have rhabdomyolysis. Multiple right-sided rib fractures are noted. At least the 2nd, 3rd, and 5th ribs are fractured, possibly more. HOSPITAL COURSE: Patient sustained an open fracture of right humerus and possible brachial plexus injury. He was admitted to medical floor with pain management and orthopedic consult was called seen was by orthopedic and had an ORIF of right humerus done Patient probably needs a special splint secondary to her brachial plexus injury as postop Patient is clinically stable. Pain is much decreased with the pain management and patient receiving physical and occupational therapy and will be discharged to his [facility] for further further physical therapy and occupational therapy. Continue all home meds . DISCHARGE MEDICATIONS: Please see below. ALLERGIES: Please see below. PHYSICAL EXAMINATION ON DISCHARGE: VITAL SIGNS: Please see below. GENERAL: Within normal limits HEENT: PERRLA. Extraocular muscles intact NECK: Supple CARDIOVASCULAR EXAMINATION: S1, S2, regular RESPIRATORY EXAMINATION: Clear to A&P ABDOMINAL EXAMINATION: Of nontender, bowel sound present EXTREMITIES: Cast right arm SKIN: Within normal limits NEUROLOGICAL EXAMINATION: No Focal motor sensory deficit PSYCHIATRIC EXAMINATION: No depression, anxiety LABORATORY DATA: Please see below. IMAGING: Humerus x-ray on right side: There is a transverse fracture through the mid diaphysis of the humerus with slight posterolateral displacement PROGNOSIS: Good ACTIVITY: As tolerated. DIET: As tolerated] DISCHARGE PLAN: Discharge to subacute rehabilitation facility DISPOSITION: [facility]. DISCHARGE INSTRUCTIONS: 1. As per discharge instructions. ITEMS TO FOLLOWUP ON ON OUTPATIENT: 1. Follow-up with orthopedics in 1-2 weeks. DISCHARGE CONDITION: Stable. TIME SPENT ON DISCHARGE: 35 minutes. Vital Signs/I&Os Vital Signs Date Time Temp Pulse Resp B/P (MAP) Pulse Ox O2 Delivery O2 Flow Rate FiO2 11/30/18 10:19 18 11/30/18 09:26 74 165/79 11/30/18 05:19 98.5 90 11/29/18 04:46 2.0 11/26/18 16:24 Room Air I&O- Last 24 Hours up to 6 AM 11/30/18 06:00 Intake Total 3970 ml Output Total 4800 ml Balance -830 ml Laboratory Data Labs 24H Laboratory Tests 2 11/30/18 06:43: Immature Granulocyte % (Auto) 1.0, White Blood Count 10.7H, Red Blood Count 3.04L, Hemoglobin 10.0L, Hematocrit 30.7L, Mean Corpuscular Volume 101.0H, Mean Corpuscular Hemoglobin 32.9, Mean Corpuscular Hemoglobin Concent 32.6, Red Cell Distribution Width 13.0, Platelet Count 252, Neutrophils (%) (Auto) 72.8H, Lymphocytes (%) (Auto) 15.0L, Monocytes (%) (Auto) 9.8H, Eosinophils (%) (Auto) 1.2, Basophils (%) (Auto) 0.2, Neutrophils # (Auto) 7.8, Lymphocytes # (Auto) 1.6, Monocytes # (Auto) 1.1H, Eosinophils # (Auto) 0.1, Basophils # (Auto) 0.0, Nucleated Red Blood Cells % (auto) 0.0, Anion Gap 4L, Glomerular Filtration Rate > 60.0, Blood Urea Nitrogen 9, Creatinine 0.39L, Sodium Level 138, Potassium Level 4.2, Chloride Level 102, Carbon Dioxide Level 32, Calcium Level 8.8 CBC/BMP Laboratory Tests 11/30/18 06:43 Red Blood Count 3.04 L, Mean Corpuscular Volume 101.0 H, Mean Corpuscular Hemoglobin 32.9, Mean Corpuscular Hemoglobin Concent 32.6, Red Cell Distribution Width 13.0, Neutrophils (%) (Auto) 72.8 H, Lymphocytes (%) (Auto) 15.0 L, Mo nocytes (%) (Auto) 9.8 H, Eosinophils (%) (Auto) 1.2, Basophils (%) (Auto) 0.2, Neutrophils # (Auto) 7.8, Lymphocytes # (Auto) 1.6, Monocytes # (Auto) 1.1 H, Eosinophils # (Auto) 0.1, Basophils # (Auto) 0.0, Calcium Level 8.8 Discharge Medications Scheduled Aspirin (Aspirin EC) 81 Mg Tab, 81 MG PO DAILY, (Reported) Budesonide/Formoterol (Symbicort 160-4.5 Mcg Inhaler) 6 Gm Hfa.aer.ad, 2 PUFF INH BID, (Reported) Cyanocobalamin (Vitamin B-12) (Vitamin B-12) 1,000 Mcg Tab, 1,000 MCG PO DAILY, (Reported) Docusate Sodium (Colace) 100 Mg Capsule, 100 MG PO BID Furosemide (Lasix) 20 Mg Tab, 20 MG PO DAILY, (Reported) Gabapentin (Gabapentin) 100 Mg Capsule, 100 MG PO DAILY, (Reported) Montelukast Sodium (Montelukast Sodium) 10 Mg Tablet, 10 MG PO DAILY, (Reported) Multivit-Min/FA/Lycopen/Lutein (Centravites 50 Plus Tablet) 1 Each Tablet, 1 EACH PO DAILY, (Reported) Polyethylene Glycol 3350 (Polyethylene Glycol 3350) 17 Gm Powd.pack, 1 PKT PO DAILY Pyridoxine HCl (Vitamin B6) (Vitamin B-6) 100 Mg Tab, 100 MG PO DAILY, (Reported) Sertraline Hcl (Zoloft) 100 Mg Tab, 100 MG PO DAILY, (Reported) Thiamine HCl (Thiamine HCl) 100 Mg Tablet, 100 MG PO DAILY, (Reported) Verapamil HCl (Verapamil ER) 180 Mg Tab, 180 MG PO DAILY, (Reported) [prevagen] , 1 TAB PO DAILY, (Reported) Scheduled PRN Acetaminophen (Acetaminophen) 325 Mg Tablet, 650 MG PO Q4HP PRN for PAIN OR FEVER Albuterol Sulfate (Proair Hfa) 108 Mcg/Act Aer, 2 PUFF INH QID PRN for SHORTNESS OF BREATH, (Reported) Clonazepam (Clonazepam) 0.5 Mg Tab, 0.5 MG PO BID PRN for ANXIETY, (Reported) Ibuprofen (Ibu-200) 200 Mg Tablet, 200 MG PO QID PRN for PAIN, (Reported) Melatonin (Melatonin) 5 Mg Capsule, 5 MG PO QHS PRN for SLEEP, (Reported) Oxycodone/Acetaminophen (Oxycodone-Acetaminophen 5-325) 1 Each Tablet, 2 TAB PO Q4HP PRN for SEVERE PAIN (PS 8-10) Oxycodone/Acetaminophen (Oxycodone-Acetaminophen 5-325) 1 Each Tablet, 1 TAB PO Q4HP PRN for MILD/MODERATE PAIN (PS 1-7) Allergies Coded Allergies: bee venom protein (honey bee) (Verified Allergy, Unknown, 11/26/18) latex (Verified Allergy, Unknown, 11/26/18) CHANNING MURRELL MD Nov 30, 2018 13:07
== END 2018-11-30 10:45 | DRG 492 ==
LOC: M ED 12:03 → M ED INP 14:43 → M MS5PR 16:47
PROVIDERS: ADMIT Internal Medicine Nephrology; ATTEND Internal Medicine
PROC: 0PSF04Z Reposition Right Humeral Shaft with Internal Fixation Device, Open Approach (ICD-10-PCS; principal; 2018-11-28 18:30)
DX: M62.82 Rhabdomyolysis (principal); S42.321 Displaced transverse fracture of shaft of humerus, right arm; I50.32 Chronic diastolic (congestive) heart failure; S22.41XA Multiple fractures of ribs, right side, initial encounter for closed fracture; S14.3XXA Injury of brachial plexus, initial encounter; M25.211 Flail joint, right shoulder; F20.9 Schizophrenia, unspecified; F41.9 Anxiety disorder, unspecified; S51.011A Laceration without foreign body of right elbow, initial encounter; S41.111A Laceration without foreign body of right upper arm, initial encounter; I10 Essential (primary) hypertension; J44.9 Chronic obstructive pulmonary disease, unspecified; I27.20 Pulmonary hypertension, unspecified; I11.0 Hypertensive heart disease with heart failure; S70.01XA Contusion of right hip, initial encounter; W23.1XXA Caught, crushed, jammed, or pinched between stationary objects, initial encounter; Y92.019 Unspecified place in single-family (private) house as the place of occurrence of the external cause; Z91.040 Latex allergy status; Z12.2 Encounter for screening for malignant neoplasm of respiratory organs; Z87.891 Personal history of nicotine dependence; Z91.030 Bee allergy status; Z79.82 Long term (current) use of aspirin; Z79.899 Other long term (current) drug therapy

== ENCOUNTER → 2018-12-28 | Outpatient (REF) | payer MEDICARE ==
[~2018-12-28] MED LIST changes: +ACET1TAB55 PO; +CENT1TAB PO; +COLA100C5 PO; +GABA-1171 PO; +IBUP200T45 PO; +MELA5CAP2 PO; +MONT10TA2 PO; +PEG1POW PO; +PERCOCET PO; -SERTRALINE 100 MG TAB PO SCH; +SYMB16INH INH; +SYMB80INH INH; +THIA100T7 PO; +prevagen PO
[2018-12-28 15:57] LABS: BASO # 0.1 10^3/uL (0.0-0.2); BASO % 0.7 % (0.0-1.0); EOS # 0.3 10^3/uL (0.0-0.5); HEMATOCRIT 36.1 % (36.0-47.0); LYMPH # 2.1 10^3/uL (1.5-5.0); LYMPH % 24.8 % (24.0-44.0); MEAN CORPUSCULAR HEMOGLOBIN 31.9 pg (27.0-33.0); MEAN CORPUSCULAR HGB CONC 33.2 g/dl (32.0-36.5); MONO # 0.7 10^3/uL (0.0-0.8); MONO % 7.8 % (0.0-5.0); NEUTROPHILS # 5.2 10^3/uL (1.5-8.5); NEUTROPHILS % 62.5 % (36.0-66.0); PLATELET COUNT, AUTOMATED 329 10^3/uL (150-450); RED BLOOD COUNT 3.76 10^6/uL (4.00-5.40); WHITE BLOOD COUNT 8.4 10^3/uL (4.0-10.0)
[2018-12-28 16:20] LABS: ERYTHROCYTE SEDIMENTATION RATE 24 mm/hr (0-30)
== END ==
LOC: M LABDRAW1 15:25
PROVIDERS: ATTEND Orthopaedic Surgery Hand Surgery
DX: T84.190A Other mechanical complication of internal fixation device of right humerus, initial encounter (principal); Y83.4 Other reconstructive surgery as the cause of abnormal reaction of the patient, or of later complication, without mention of misadventure at the time of the procedure

== ENCOUNTER 2019-01-02 05:40 | Day surgery (SDC) | payer MEDICARE ==
[~2019-01-02] VITALS: Ht 152.4 cm; Wt 60.1 kg
[2019-01-02] MEDS ORDERED: ROPIvacaine 0.5% 30 ML INJECTION (J2795 PER 1MG) ONE (05:41)
[2019-01-02] MEDS ORDERED: LIDOCAINE 1% MDV 20ML VIAL ONE (05:41)
[2019-01-02] MEDS ORDERED: dexameTHASONE 10 MG/1 ML VIAL PRES.FREE (J1100) ONE (05:41)
[2019-01-02] MEDS ORDERED: LR 1,000 ML IV ONE (05:45)
[2019-01-02] MEDS ORDERED: PROPOFOL 200 MG/20 ML VIAL As Ordered ONE (07:07)
[2019-01-02] MEDS ORDERED: LIDOCAINE 2% INJ 100 MG/5 ML SDV (FOR ANES.) As Ordered ONE (07:07)
[2019-01-02] MEDS ORDERED: dexameTHASONE 4 MG/ML 1ML VIAL (J1100) As Ordered ONE (07:08)
[2019-01-02] MEDS ORDERED: fentaNYL 100 MCG/2 ML INJECTION (J3010) As Ordered ONE (07:08)
[2019-01-02] MEDS ORDERED: MIDAZOLAM INJ 2 MG/2 ML VIAL (J2250) As Ordered ONE (07:08)
[2019-01-02] MEDS ORDERED: ONDANSETRON 4MG/2ML VIAL (J2405) As Ordered ONE (07:08)
[2019-01-02] MEDS ORDERED: ceFAZolin 1GM INJ (J0690 PER 500MG) As Ordered ONE ×2 (07:16→07:48)
[2019-01-02] MEDS: fentaNYL 100 MCG/2 ML INJECTION (J3010) IV PRN ×2 (07:27→07:30)
[2019-01-02] MEDS: MIDAZOLAM INJ 2 MG/2 ML VIAL (J2250) IV PRN ×2 (07:27→07:28)
[2019-01-02] MEDS ORDERED: ROCURONIUM BROMIDE 50 MG/5 ML VIAL As Ordered ONE (07:38)
[2019-01-02] MEDS ORDERED: SUGAMMADEX SODIUM 500 MG/5 ML VIAL (BRIDION) As Ordered ONE (10:00)
[2019-01-02] MEDS ORDERED: ACETAMINOPHEN 1000MG 100ML IV BTL (OFIRMEV) (J0131 PER 10MG) As Ordered ONE (10:03)
--- NOTE | 2019-01-02 10:51 | REP ---
C-ARM VIEWS RIGHT HUMERUS: Multiple C-arm views right humerus performed. Metallic plate and multiple metallic screws are placed in the right humerus. Osseous structures appear well-aligned. 43 seconds of fluoroscopy time utilized. Electronically Signed by Osorio Le MD 01/03/2019 11:43 A
[2019-01-02] MEDS ORDERED: fentaNYL 100 MCG/2 ML INJECTION (J3010) IV PRN (11:00)
[2019-01-02] MEDS ORDERED: ONDANSETRON 4MG/2ML VIAL (J2405) IV PRN (11:00)
[2019-01-02] MEDS ORDERED: LR 1,000 ML IV SCH (11:00)
[2019-01-02] MEDS ORDERED: MORPHINE 10 MG/ML 1ML VIAL (J2270) IV PRN (11:00)
[2019-01-02 12:21] VITALS: BP 138/73
[2019-01-02 13:00] VITALS: BP 139/73
[2019-01-02] MEDS ORDERED: PERCOCET 5MG/325MG TAB PO PRN ×2 (13:15)
[2019-01-02] MEDS ORDERED: ACETAMINOPHEN TAB 650MG DOSE (2X325MG) PO PRN (13:15)
[2019-01-02] MEDS ORDERED: MORPHINE 4 MG/ML 1ML VIAL/SYRINGE (J2270) IV PRN (13:15)
--- NOTE | 2019-01-02 13:18 | CR.PDOC ---
General Date of Consultation: Jan 02, 2019 Referring Provider: CASTRO SMITH MD Consultation CHIEF COMPLAINT: R. shoulder pain HISTORY OF PRESENT ILLNESS: Patient is a 73F with PMH osteoarthritis with recent history of R. humeral fracture s/p ORIF, schizoprenia, thyroid cyst, and printzmetal angina presented for revision of R. shoulder with orthopedic surgery. She has had a traumatic fracture last month and underwent ORIF of the R. shoulder but the screw came out reported and had to go in today for revision now with wound vac in place. She reports pain in the R. shoulder but otherwise no other complaints. Denies any chest pain, SOB, fever, chills. PAST MEDICAL HISTORY: Refer to HPI PAST SURGICAL HISTORY: D&C Hysterectomy Right shoulder ORIF SOCIAL HISTORY: Former smoker. Denies current tobacco, alcohol or illicit drug use. FAMILY HISTORY: Mother- Colon cancer, DM Sister- COPD ALLERGIES: Please see below. REVIEW OF SYSTEMS: 10 point review of system negative except as stated in HPI HOME MEDICATIONS: Please see below. PHYSICAL EXAMINATION: General: No acute distress, Alert Eyes: Normal sclera, EOMI, MARIELA HENT: Atraumatic Cardiovascular: Normal rate, normal rhythm. Pulmonary: Clear to auscultation b/l GI: Soft, nontender, nondistended MSK: R. shoulder with overlying clear dressing and wound vac attached Skin: Warm and dry Neuro: CN grossly intact. No focal deficits. Psych: oriented x 3 LABORATORY DATA: See below. MICROBIOLOGY: Please see below. ASSESSMENT AND PLAN: 1. R. humeral fracture s/p repair - s/p repair 01/02/19 with orthopedic surgery. - Pain control, patient appear comfortable now although does reports pain. Adjustment per ortho. - PT. 2. Schizophrenia - no active issues at this time. - resume home medications. 3. hx thyroid cyst s/p aspiration 4. OA - Pain control. Vital Signs/I&O Vital Signs Date Time Temp Pulse Resp B/P (MAP) Pulse Ox O2 Delivery O2 Flow Rate FiO2 01/02/19 11:14 97.8 92 18 157/74 (101) 95 Nasal Cannula 3 Laboratory Data Microbiology Microbiology 01/02/19 Fungal Smear, Received Pending 01/02/19 Fungal Culture, Received Pending 01/02/19 Fungal Smear, Received Pending 01/02/19 Fungal Culture, Received Pending 01/02/19 Fungal Smear, Received Pending 01/02/19 Fungal Culture, Received Pending 01/02/19 Anaerobic Culture, Received Pending 01/02/19 Gram Stain, Received Pending 01/02/19 Wound Culture, Received Pending 01/02/19 Anaerobic Culture, Received Pending 01/02/19 Gram Stain, Received Pending 01/02/19 Wound Culture, Received Pending 01/02/19 Anaerobic Culture, Received Pending 01/02/19 Gram Stain, Received Pending 01/02/19 Wound Culture, Received Pending Allergies Coded Allergies: bee venom protein (honey bee) (Verified Allergy, Unknown, 11/26/18) latex (Verified Allergy, Unknown, 11/26/18) Home Medications Scheduled Aspirin (Aspirin EC) 81 Mg Tab, 81 MG PO DAILY, (Reported) Budesonide/Formoterol (Symbicort 160-4.5 Mcg Inhaler) 6 Gm Hfa.aer.ad, 2 PUFF INH BID, (Reported) Cyanocobalamin (Vitamin B-12) (Vitamin B-12) 1,000 Mcg Tab, 1,000 MCG PO DAILY, (Reported) Furosemide (Lasix) 20 Mg Tab, 20 MG PO DAILY, (Reported) Gabapentin (Gabapentin) 100 Mg Capsule, 100 MG PO DAILY, (Reported) Montelukast Sodium (Montelukast Sodium) 10 Mg Tablet, 10 MG PO DAILY, (Reported) Multivit-Min/FA/Lycopen/Lutein (Centravites 50 Plus Tablet) 1 Each Tablet, 1 EACH PO DAILY, (Reported) Polyethylene Glycol 3350 (Polyethylene Glycol 3350) 17 Gm Powd.pack, 1 PKT PO DAILY, #30 Pyridoxine HCl (Vitamin B6) (Vitamin B-6) 100 Mg Tab, 100 MG PO DAILY, (Reported) Sertraline Hcl (Zoloft) 100 Mg Tab, 100 MG PO DAILY, (Reported) Thiamine HCl (Thiamine HCl) 100 Mg Tablet, 100 MG PO DAILY, (Reported) Verapamil HCl (Verapamil ER) 180 Mg Tab, 180 MG PO DAILY, (Reported) [prevagen] , 1 TAB PO DAILY, (Reported) Scheduled PRN Acetaminophen (Acetaminophen) 325 Mg Tablet, 650 MG PO Q4HP PRN for PAIN OR FEVER, #30 Albuterol Sulfate (Proair Hfa) 108 Mcg/Act Aer, 2 PUFF INH QID PRN for SHORTNESS OF BREATH, (Reported) Clonazepam (Clonazepam) 0.5 Mg Tab, 0.5 MG PO BID PRN for ANXIETY, (Reported) Melatonin (Melatonin) 5 Mg Capsule, 5 MG PO QHS PRN for SLEEP, (Reported) Oxycodone/Acetaminophen (Oxycodone-Acetaminophen 5-325) 1 Each Tablet, 1 TAB PO Q4HP PRN for MILD/MODERATE PAIN (PS 1-7), #30 IMAN SEGURA MD Jan 02, 2019 13:18
[2019-01-02] MEDS: GABAPENTIN 100 MG CAP PO SCH (14:00)
[2019-01-02] MEDS: ASPIRIN 81 MG ENTERIC TAB PO SCH (14:00)
[2019-01-02] MEDS: CYANOCOBALAMIN 500 MCG TAB PO SCH (14:00)
[2019-01-02] MEDS: MONTELUKAST 10 MG TAB PO SCH (14:00)
[2019-01-02] MEDS: THIAMINE 100 MG TAB PO SCH (14:00)
[2019-01-02] MEDS: FUROSEMIDE 20 MG TAB PO SCH (14:00)
[2019-01-02 14:28] VITALS: BP 142/75
[2019-01-02] MEDS: MIRALAX *UNIT DOSE* 17GM PACKET PO SCH (14:58)
[2019-01-02] MEDS: PYRIDOXINE 50 MG TAB PO SCH (14:59)
[2019-01-02] MEDS: VERAPAMIL 180MG EXTENDED RELEASE TABLET PO SCH (14:59)
[2019-01-02 15:47] VITALS: BP 143/72
[2019-01-02] MEDS ORDERED: oxyCODONE 5MG TAB PO PRN (16:30)
[2019-01-02] MEDS ORDERED: NS 1,000 ML IV SCH (16:30)
[2019-01-02 16:34] VITALS: BP 141/71
[2019-01-02] MEDS: ceFAZolin SOD 1 GM in D5W MINI-BAG PLUS 50 ML IV SCH (17:33)
[2019-01-02] MEDS: ALBUTEROL 90 MCG/ACT 8GM HFA INHALER INH PRN (20:01)
[2019-01-02] MEDS: SYMBICORT 160/4.5MCG INHALER 6GM INH SCH (20:02)
[2019-01-02] MEDS: oxyCODONE 5MG TAB PO PRN (20:11)
[2019-01-02 22:00] VITALS: BP 125/52
[2019-01-03] MEDS: ceFAZolin SOD 1 GM in D5W MINI-BAG PLUS 50 ML IV SCH ×3 (02:00→17:11)
[2019-01-03] MEDS: oxyCODONE 5MG TAB PO PRN ×3 (03:50→21:51)
[2019-01-03 05:50] VITALS: BP 148/66
[2019-01-03 06:27] LABS: HEMATOCRIT 26.6 % (36.0-47.0); HEMOGLOBIN 8.5 g/dl (12.0-15.5); PLATELET COUNT, AUTOMATED 275 10^3/uL (150-450); RED BLOOD COUNT 2.66 10^6/uL (4.00-5.40); WHITE BLOOD COUNT 10.7 10^3/uL (4.0-10.0)
[2019-01-03 06:37] LABS: INR 1.02; PROTHROMBIN TIME 13.1 SECONDS (11.8-14.0)
[2019-01-03 06:38] LABS: PARTIAL THROMBOPLASTIN TIME 31.1 SECONDS (25.0-38.4)
[2019-01-03 06:51] LABS: BLOOD UREA NITROGEN 8 MG/DL (7-18); CALCIUM LEVEL 8.1 MG/DL (8.8-10.2); CARBON DIOXIDE LEVEL 33 MEQ/L (21-32); CHLORIDE LEVEL 103 MEQ/L (98-107); CREATININE FOR GFR 0.45 MG/DL (0.55-1.30); GLOMERULAR FILTRATION RATE > 60.0 (>39); GLUCOSE, FASTING 121 MG/DL (70-100); POTASSIUM SERUM 4.1 MEQ/L (3.5-5.1); SODIUM LEVEL 139 MEQ/L (136-145)
[2019-01-03] MEDS: ASPIRIN 81 MG ENTERIC TAB PO SCH (08:33)
[2019-01-03] MEDS: FUROSEMIDE 20 MG TAB PO SCH (08:33)
[2019-01-03] MEDS: CYANOCOBALAMIN 500 MCG TAB PO SCH (08:33)
[2019-01-03] MEDS: MONTELUKAST 10 MG TAB PO SCH (08:33)
[2019-01-03] MEDS: MIRALAX *UNIT DOSE* 17GM PACKET PO SCH (08:33)
[2019-01-03] MEDS: VERAPAMIL 180MG EXTENDED RELEASE TABLET PO SCH (08:34)
[2019-01-03] MEDS: SERTRALINE 100 MG TAB PO SCH (08:34)
[2019-01-03] MEDS: GABAPENTIN 100 MG CAP PO SCH (08:34)
[2019-01-03] MEDS: PYRIDOXINE 50 MG TAB PO SCH (08:34)
[2019-01-03] MEDS: THIAMINE 100 MG TAB PO SCH (08:34)
[2019-01-03] MEDS: SYMBICORT 160/4.5MCG INHALER 6GM INH SCH ×2 (08:38→18:35)
[2019-01-03] MEDS: clonazePAM 0.5 MG TAB PO PRN ×2 (08:43→17:11)
[2019-01-03 10:00] VITALS: BP 120/68
[2019-01-03] MEDS: MORPHINE 4 MG/ML 1ML VIAL/SYRINGE (J2270) IV PRN ×2 (10:37→18:13)
[2019-01-03 14:00] VITALS: BP 131/72
[2019-01-03] MEDS: ALBUTEROL 90 MCG/ACT 8GM HFA INHALER INH PRN (17:00)
[2019-01-03 18:00] VITALS: BP 112/85
--- NOTE | 2019-01-03 18:59 | IPNPDOC ---
Date Seen The patient was seen on 01/03/19. Progress Note SUBJECTIVE: Patient reports feeling well apart from discomfort in the R. shoulder. No acute events reported overnight. OBJECTIVE PHYSICAL EXAMINATION: VITAL SIGNS: Please see below. General: No acute distress, Alert Eyes: Normal sclera, EOMI, MARIELA HENT: Atraumatic Cardiovascular: Normal rate, normal rhythm. Pulmonary: Clear to auscultation b/l GI: Soft, nontender, nondistended MSK: R. shoulder with overlying clear dressing and wound vac attached Skin: Warm and dry Neuro: CN grossly intact. No focal deficits. Psych: oriented x 3 LABORATORY DATA, IMAGING STUDIES, MICROBIOLOGY: Please see below. ASSESSMENT AND PLAN: 1. R. humeral fracture s/p repair - s/p repair 01/02/19 with orthopedic surgery. - Pain control. Adjustment per ortho. - PT. c/w Abx per primary. Cultures pending. 2. Schizophrenia - no active issues at this time. - resume home medications. 3. hx thyroid cyst s/p aspiration 4. OA - Pain control. VS, I&O, 24H, [facility] Vital Signs/I&O Vital Signs Date Time Temp Pulse Resp B/P (MAP) Pulse Ox O2 Delivery O2 Flow Rate FiO2 01/03/19 18:23 18 01/03/19 14:00 98.7 86 131/72 (91) 90 Room Air 01/03/19 05:50 2.0 I&O- Last 24 Hours up to 6 AM 01/03/19 06:00 Intake Total 2260 ml Output Total 2425 ml Balance -165 ml Laboratory Data 24H LABS Laboratory Tests 2 01/03/19 06:16: Nucleated Red Blood Cells % (auto) 0.0, Prothrombin Time 13.1, Prothromb Time International Ratio 1.02, Activated Partial Thromboplast Time 31.1, Anion Gap 3 L, Glomerular Filtration Rate > 60.0, Calcium Level 8.1L CBC/BMP Laboratory Tests 01/03/19 06:16 Microbiology Microbiology 01/02/19 Fungal Smear, Received Pending 01/02/19 Fungal Culture, Received Pending 01/02/19 Fungal Smear, Received Pending 01/02/19 Fungal Culture, Received Pending 01/02/19 Fungal Smear, Received Pending 01/02/19 Fungal Culture, Received Pending 01/02/19 Anaerobic Culture, Received Pending 01/02/19 Gram Stain - Final, Resulted 01/02/19 Wound Culture, Resulted Pending 01/02/19 Anaerobic Culture, Received Pending 01/02/19 Gram Stain - Final, Resulted 01/02/19 Wound Culture, Resulted Pending 01/02/19 Anaerobic Culture, Received Pending 01/02/19 Gram Stain - Final, Resulted 01/02/19 Wound Culture, Resulted Pending IMAN SEGURA MD Jan 03, 2019 18:59
[2019-01-03 22:00] VITALS: BP 143/63
[2019-01-04] MEDS: ceFAZolin SOD 1 GM in D5W MINI-BAG PLUS 50 ML IV SCH ×3 (02:09→17:18)
[2019-01-04] MEDS: oxyCODONE 5MG TAB PO PRN ×4 (04:36→19:10)
--- NOTE | 2019-01-04 05:47 | RO ---
DATE OF PROCEDURE: 01/02/2019 PREOPERATIVE DIAGNOSES: Right humerus hardware failure, atrophic nonunion, possible infection. POSTOPERATIVE DIAGNOSES: Right humerus hardware failure, atrophic nonunion, possible infection. PROCEDURE: 1. Removal of hardware. 2. Partial excision of bone of humerus. 3. Osteotomy of the humerus. 4. Open reduction and internal fixation (ORIF) of humerus. SURGEON: Omi Carter MD MANAGER OF PATIENT: CIRO Leggett, who was essential with perkins portions of the procedure for retraction. ANESTHESIA: General. ESTIMATED BLOOD LOSS: 250. PREOPERATIVE ANTIBIOTICS: Held. COMPLICATIONS: None. SPECIMENS: Three cultures were sent, numbered 1, 2, and 3, along with permanent pathology. INDICATIONS: This is a pleasant 73-year-old female who had an unfortunate incident about 4 or 5 weeks ago where she got stuck in her hospital bed at home, suffering a humeral shaft fracture and was left home unfound for approximately 24 hours, resulting in large skin tears, converting a closed fracture to an open fracture. At that same time, she had to drag the hospital bed via her broken arm to a phone to call for help, at which point it resulted in dense brachial plexopathy where she has no sensation or motor distal to the fracture site. This necessitated original intervention and I believe is a component of the hardware failure. OPERATIVE DESCRIPTION: Patient was brought back to the operating room (OR) in the supine condition. She was placed on to the operating room bed and underwent general anesthesia, at which point we prepped and draped the right arm in the standard fashion. We had time-outs confirming site, side, and surgery. Once all in agreement, we made a longitudinal incision through the previous incision, extending it proximally and distally about 2 cm on each end, at which point we sharply went through subcutaneous tissue, meticulous attention to subcutaneous bleeding. We then encountered the biceps muscle. We retracted it medially, posterolaterally, and split the brachialis. We exposed distally all the way down towards the distal shaft towards the elbow joint, careful to avoid brachioradialis and avoidance of the radial nerve. We then extended proximally, lifting up the anterior portion of the deltoid to get adequate exposure up to the proximal humerus. Once we had adequate exposure, we found the two free floating screws and removed them, along with the rest of the screws and the 3.5 plate. At which point, we thoroughly irrigated the wound with 3 liters of fluid. We then used curettes and rongeur to debride the screw holes and fracture ends. There did not appear to be any fracture callus at this point. We took three cultures deep at this point, along with soft tissue for permanent evaluation. We then irrigated once again with an additional 3 liters of saline using cysto tubing. Once we felt that we had thoroughly irrigated the wound and cleansed the fracture sites and screw holes, we took a micro sagittal saw and did a humeral osteotomy, shortening the proximal and distal segment each by about 0.5 cm in order to create clean bone ends that had at least 75%, if not more, of the cortex intact, at which point we reduced the fracture using two Verbrugge clamps and a 4.5 plate. We then checked under C-arm placement of the plate. The distal extent is just short of the coronoid fossa anteriorly and then also proximally onto the greater tuberosity, at which point we also assessed the rotation to ensure that we were having appropriate rotation between the distal portion of the humerus and the proximal portion. Once we were happy with this on x-ray, we used two cortical screws and loaded the plate in compression close to the fracture sites. We were happy with the amount of compression we were able to achieve and then placed three additional locking screws both proximally and distally, alternating holes if possible. At this point, we irrigated the wound once more. Checked our AP and lateral x-rays. We were very happy with this placement. We then placed 5 mL of DBX bone putty along with 15 mL of crushed cancellous bone graft within the actual fracture and the surrounding tissue. I was very happy with the amount of bone graft that we were able to place. We then closed the anterior compartment, suturing the biceps back over top in order to help close and maintain this graft into a localized area. We then closed the subcutaneous tissue with #2-0 PDS and the skin with dagoberto. We then placed an incisional VAC with Adaptic underneath the sponge, using Ioban as it is thicker in order to have good suction. The incisional VAC was set to 75 mmHg, at which point the patient was extubated and taken stably into postanesthesia care unit (PACU). POSTOPERATIVE PLAN: We will continue the incisional VAC for 5 days. We placed the patient on Ancef antibiotics for 5 days until cultures will be complete. If they are negative, then we will just send her home with an additional 2 weeks of Keflex. If it is positive, then we will consult infectious disease for guidance on antibiotic selection and duration. We placed the patient in a sling and will potentially convert her over to a coaptation splint once she comes to the office. I will work on pain control. The patient obtained a peripheral nerve block preoperatively so should be able to do so.
[2019-01-04 06:00] VITALS: BP 126/55
[2019-01-04] MEDS: SYMBICORT 160/4.5MCG INHALER 6GM INH SCH ×2 (08:20→17:35)
[2019-01-04] MEDS: clonazePAM 0.5 MG TAB PO PRN ×2 (09:17→17:57)
[2019-01-04] MEDS: MIRALAX *UNIT DOSE* 17GM PACKET PO SCH (09:18)
[2019-01-04] MEDS: THIAMINE 100 MG TAB PO SCH (09:18)
[2019-01-04] MEDS: SERTRALINE 100 MG TAB PO SCH (09:18)
[2019-01-04] MEDS: PYRIDOXINE 50 MG TAB PO SCH (09:18)
[2019-01-04] MEDS: FUROSEMIDE 20 MG TAB PO SCH (09:18)
[2019-01-04] MEDS: ASPIRIN 81 MG ENTERIC TAB PO SCH (09:18)
[2019-01-04] MEDS: CYANOCOBALAMIN 500 MCG TAB PO SCH (09:18)
[2019-01-04] MEDS: MONTELUKAST 10 MG TAB PO SCH (09:18)
[2019-01-04] MEDS: GABAPENTIN 100 MG CAP PO SCH (09:18)
[2019-01-04] MEDS: VERAPAMIL 180MG EXTENDED RELEASE TABLET PO SCH (09:18)
[2019-01-04 14:00] VITALS: BP 129/57
--- NOTE | 2019-01-04 17:50 | IPNPDOC ---
Date Seen The patient was seen on 01/04/19. Progress Note SUBJECTIVE: Patient is sad today because her is not doing well at home but otherwise reports unchanged in status. R. shoulder with pain relieved with analgesic. No acute events reported overnight. OBJECTIVE PHYSICAL EXAMINATION: General: No acute distress, Alert Eyes: Normal sclera, EOMI, MARIELA HENT: Atraumatic Cardiovascular: Normal rate, normal rhythm. Pulmonary: Clear to auscultation b/l GI: Soft, nontender, nondistended MSK: R. shoulder with overlying clear dressing and wound vac attached Skin: Warm and dry Neuro: CN grossly intact. No focal deficits. Psych: oriented x 3 LABORATORY DATA, IMAGING STUDIES, MICROBIOLOGY: Please see below. ASSESSMENT AND PLAN: 1. R. humeral fracture s/p repair - s/p repair 01/02/19 with orthopedic surgery. - Pain control. Wound vac in place with Abx ongoing. - PT. 2. Schizophrenia - no active issues at this time. - resume home medications. 3. hx thyroid cyst s/p aspiration 4. OA - Pain control. VS, I&O, 24H, Fishbone Vital Signs/I&O Vital Signs Date Time Temp Pulse Resp B/P (MAP) Pulse Ox O2 Delivery O2 Flow Rate FiO2 01/04/19 15:22 18 01/04/19 14:00 99.1 88 129/57 (81) 90 Room Air 01/03/19 21:00 2.0 I&O- Last 24 Hours up to 6 AM 01/04/19 06:00 Intake Total 1390 ml Output Total 3300 ml Balance -1910 ml Laboratory Data Microbiology Microbiology 01/02/19 Fungal Smear, Received Pending 01/02/19 Fungal Culture, Received Pending 01/02/19 Fungal Smear, Received Pending 01/02/19 Fungal Culture, Received Pending 01/02/19 Fungal Smear, Received Pending 01/02/19 Fungal Culture, Received Pending 01/02/19 Anaerobic Culture - Final, Complete 01/02/19 Gram Stain - Final, Resulted 01/02/19 Wound Culture, Resulted Pending 01/02/19 Anaerobic Culture, Received Pending 01/02/19 Gram Stain - Final, Resulted 01/02/19 Wound Culture, Resulted Pending 01/02/19 Anaerobic Culture, Received Pending 01/02/19 Gram Stain - Final, Resulted 01/02/19 Wound Culture, Resulted Pending IMAN SEGURA MD Jan 04, 2019 17:50
[2019-01-04 23:10] VITALS: BP 140/63
[2019-01-05] MEDS: ceFAZolin SOD 1 GM in D5W MINI-BAG PLUS 50 ML IV SCH ×2 (02:07→09:43)
[2019-01-05] MEDS: oxyCODONE 5MG TAB PO PRN ×2 (02:08→10:49)
[2019-01-05 06:00] VITALS: BP 139/66
[2019-01-05] MEDS ORDERED: OXYC-517 PO (06:04)
[2019-01-05] MEDS ORDERED: KEFL500C17 PO (07:37)
[2019-01-05] MEDS: SYMBICORT 160/4.5MCG INHALER 6GM INH SCH (07:58)
[2019-01-05 09:42] VITALS: BP 139/66
[2019-01-05] MEDS: VERAPAMIL 180MG EXTENDED RELEASE TABLET PO SCH (09:42)
[2019-01-05] MEDS: CYANOCOBALAMIN 500 MCG TAB PO SCH (09:42)
[2019-01-05] MEDS: FUROSEMIDE 20 MG TAB PO SCH (09:42)
[2019-01-05] MEDS: PYRIDOXINE 50 MG TAB PO SCH (09:42)
[2019-01-05] MEDS: ASPIRIN 81 MG ENTERIC TAB PO SCH (09:42)
[2019-01-05] MEDS: MONTELUKAST 10 MG TAB PO SCH (09:42)
[2019-01-05] MEDS: GABAPENTIN 100 MG CAP PO SCH (09:42)
[2019-01-05] MEDS: MIRALAX *UNIT DOSE* 17GM PACKET PO SCH (09:43)
[2019-01-05] MEDS: THIAMINE 100 MG TAB PO SCH (09:43)
[2019-01-05] MEDS: SERTRALINE 100 MG TAB PO SCH (09:43)
[2019-01-05] MEDS ORDERED: BACT800T5 PO (10:04)
--- NOTE | 2019-01-05 13:32 | IPNPDOC ---
Date Seen The patient was seen on 01/05/19. Progress Note SUBJECTIVE: Patient has no complaints today. Reports R. shoulder pain when asked otherwise in good spirits. Wound vac removed. Planned for discharge today per ortho. Seen by ID. To be discharged on Abx. OBJECTIVE PHYSICAL EXAMINATION: General: No acute distress, Alert Eyes: Normal sclera, EOMI, MARIELA HENT: Atraumatic Cardiovascular: Normal rate, normal rhythm. Pulmonary: Clear to auscultation b/l GI: Soft, nontender, nondistended MSK: R. shoulder with overlying dressing clean and dry. Skin: Warm and dry Neuro: CN grossly intact. No focal deficits. Psych: oriented x 3 LABORATORY DATA, IMAGING STUDIES, MICROBIOLOGY: Please see below. ASSESSMENT AND PLAN: 1. R. humeral fracture s/p repair - s/p repair 01/02/19 with orthopedic surgery. - Pain control. Wound vac removed. - c/w Bactrim for 1 month post discharge, f/u with ID iin 2-3 weeks. - PT. 2. Schizophrenia - no active issues at this time. - resume home medications. 3. hx thyroid cyst s/p aspiration 4. OA - Pain control. VS, I&O, 24H, Fishbone Vital Signs/I&O Vital Signs Date Time Temp Pulse Resp B/P (MAP) Pulse Ox O2 Delivery O2 Flow Rate FiO2 01/05/19 11:19 18 Room Air 01/05/19 09:42 72 139/66 01/05/19 06:00 98.2 94 01/03/19 21:00 2.0 I&O- Last 24 Hours up to 6 AM 01/05/19 06:00 Intake Total 1210 ml Output Total 3500 ml Balance -2290 ml Laboratory Data Microbiology Microbiology 01/02/19 Fungal Smear, Received Pending 01/02/19 Fungal Culture, Received Pending 01/02/19 Fungal Smear, Received Pending 01/02/19 Fungal Culture, Received Pending 01/02/19 Fungal Smear, Received Pending 01/02/19 Fungal Culture, Received Pending 01/02/19 Anaerobic Culture - Final, Complete 01/02/19 Gram Stain - Final, Complete 01/02/19 Wound Culture - Final, Complete Staphylococcus Epidermidis 01/02/19 Anaerobic Culture - Final, Complete 01/02/19 Gram Stain - Final, Complete 01/02/19 Wound Culture - Final, Complete Staphylococcus Epidermidis 01/02/19 Anaerobic Culture - Final, Complete 01/02/19 Gram Stain - Final, Complete 01/02/19 Wound Culture - Final, Complete Staphylococcus Epidermidis IMAN SEGURA MD Jan 05, 2019 13:32
--- NOTE | 2019-01-05 14:51 | CR ---
DATE OF CONSULTATION: 01/05/2019 REQUESTING PHYSICIAN: Dr. Carter REASON FOR CONSULTATION: Evaluation of right humerus wound infection. Mrs. Cooney is a pleasant 73-year-old female who had a right humeral fracture after her arm got stuck in her hospital bed at home and was left about 24 hours, resulting in a large skin tear. The patient had an open reduction internal fixation and repair of the tear on 11/28/2018. The patient went to [facility] for rehabilitation and then discharged home. Following that she was having significant pain and therefore followed up with orthopedic surgery. They did an x-ray and found that there was malfunction of the hardware was some atrophic nonunion and possible infection and there was some floating screws so she was taken back to the operating room on 01/02/2019 for removal of the hardware. She had partial excision of the humerus and osteotomy of the humerus, as well as a new open reduction internal fixation. PAST MEDICAL HISTORY: Significant for schizophrenia, thyroid cyst, angina, osteoarthritis, right humeral fracture status post ORIF. PAST SURGICAL HISTORY: Dilatation and curettage, hysterectomy, section, right shoulder ORIF and revision. SOCIAL HISTORY: She quit smoking 16 years ago. She denies any alcohol or drug use. She lives with her and her daughter. FAMILY HISTORY: Significant for mother with colon cancer. Sister with COPD. ALLERGIES: BEE VENOM and LATEX. MEDICATIONS: - sertraline 100 mg daily - Symbicort 2 puffs inhaled twice a day - cefazolin 1 gram IV every 8 hours, was given from 12/31 to 01/05/2019 - oxycodone 10 mg by mouth every four hours as needed - morphine as needed - pyridoxine 100 mg by mouth daily - verapamil 180 mg daily - aspirin 81 mg daily - vitamin B12 1000 mcg daily - Lasix 20 mg by mouth daily - gabapentin 100 mg by mouth daily - Singulair 10 mg daily - MiraLax 1 packet daily - thiamine 100 mg daily - Tylenol as needed - Klonopin as needed LABORATORY DATA: White count 10.7, hemoglobin 8.5, hematocrit 26.6, platelets 255. ESR 24 on 12/28/2018 and CRP less than 0.3. Sodium 139, potassium 4.1, chloride 103, bicarbonate 33, BUN 8, creatinine 0.45, glucose 121, calcium 8.1. Wound cultures, three sets, were positive for Staphylococcus epidermidis and anaerobic cultures, three sets, were negative. Fungal smear and cultures are pending. PHYSICAL EXAMINATION Temperature is 98.2, pulse 72, respirations 18, blood pressure 139/66, O2 sat 94% on room air. Heart: Normal S1, S2. No murmurs. Lungs are clear. Diminished at the bases. No wheezes or rhonchi. Abdomen: Soft, nontender. No hepatosplenomegaly. Extremities: No edema. Right shoulder with a large Optifoam dressing at the incision site with some bloody drainage and ecchymosis around the wound. IMPRESSION: 1. Right humeral fracture with the malfunction of the hardware and postoperative wound infection with Staphylococcus epidermidis, most likely as a result of the open nature of the fracture and the fact that the patient did not take care for at least 24 hours after the fracture occurred. Her inflammatory markers were negative, including CRP, sed rate and white count, but the fact that she had three out of three cultures positive with Staphylococcus epidermidis is compelling to treat this infection. PLAN: The patient could be discharged home on oral Bactrim double-strength 1 tablet by mouth twice a day for 6 weeks. The patient does not have diabetes or chronic kidney disease. She has no sulfa allergy. She will be followed up in my office in 2-3 weeks. I will obtain followup labs at that time. Patient and son are in agreement. I discussed the case with Dr. Carter, who was in agreement. RON
--- NOTE | 2019-01-05 16:56 | REP ---
HISTORY: Followup. Status post ORIF. Internal fixation plate and screws seen affixing previously described humeral fracture. There is increased density surrounding the fracture fragments consistent with callus formation and healing. There is no acute fracture. Electronically Signed by Omar Turner DO 01/08/2019 02:26 P
== END 2019-01-05 12:20 | disposition home or self-care (01) ==
LOC: M SDC 05:40 → M MS5PR 11:30 → M SDC 01-05 12:20
PROVIDERS: ATTEND Orthopaedic Surgery Hand Surgery
DX: S42.294P Other nondisplaced fracture of upper end of right humerus, subsequent encounter for fracture with malunion (principal); T84.84XA Pain due to internal orthopedic prosthetic devices, implants and grafts, initial encounter; J44.9 Chronic obstructive pulmonary disease, unspecified; I25.2 Old myocardial infarction; K57.32 Diverticulitis of large intestine without perforation or abscess without bleeding; F20.9 Schizophrenia, unspecified; I20.9 Angina pectoris, unspecified; I10 Essential (primary) hypertension; E03.9 Hypothyroidism, unspecified; E04.1 Nontoxic single thyroid nodule; R23.3 Spontaneous ecchymoses; F41.9 Anxiety disorder, unspecified; F32.9 Major depressive disorder, single episode, unspecified; M47.816 Spondylosis without myelopathy or radiculopathy, lumbar region; Z91.030 Bee allergy status; Z91.040 Latex allergy status; Z79.899 Other long term (current) drug therapy; Z79.82 Long term (current) use of aspirin; Z78.0 Asymptomatic menopausal state; Z87.891 Personal history of nicotine dependence; Z90.710 Acquired absence of both cervix and uterus; X58.XXXA Exposure to other specified factors, initial encounter; Y93.9 Activity, unspecified; Y92.9 Unspecified place or not applicable; Y99.9 Unspecified external cause status
CPT/HCPCS: 24515; 36415; 73060; 76000; 80048; 85027; 85610; 85730; 87070; 87075; 87077; 87102; 87186; 87205; 88307; 88311; 94640; 96360; 96361; 96374; 97605; C1713; C1762; J0131; J0690; J1100; J2250; J2270; J2405; J2795; J3010

== ENCOUNTER → 2019-01-29 | Outpatient (REF) | payer MEDICARE ==
[~2019-01-29] MED LIST changes: +BACT800T5 PO; +CLON0.5T2 PO; -CLON0.5T8 PO; +KEFL500C17 PO; +OXYC-517 PO; -PYRI100T2 PO; +VITA100T82 PO
[2019-01-29 14:46] LABS: BASO # 0.1 10^3/uL (0.0-0.2); BASO % 1.2 % (0.0-1.0); EOS # 0.5 10^3/uL (0.0-0.5); EOS % 7.2 % (0.0-3.0); HEMATOCRIT 32.3 % (36.0-47.0); HEMOGLOBIN 9.9 g/dl (12.0-15.5); LYMPH # 2.4 10^3/uL (1.5-5.0); MEAN CORPUSCULAR HEMOGLOBIN 28.8 pg (27.0-33.0); MEAN CORPUSCULAR HGB CONC 30.7 g/dl (32.0-36.5); MEAN CORPUSCULAR VOLUME 93.9 fl (80.0-96.0); MONO # 0.5 10^3/uL (0.0-0.8); MONO % 6.5 % (0.0-5.0); NEUTROPHILS # 3.9 10^3/uL (1.5-8.5); PLATELET COUNT, AUTOMATED 327 10^3/uL (150-450); RED BLOOD COUNT 3.44 10^6/uL (4.00-5.40); WHITE BLOOD COUNT 7.4 10^3/uL (4.0-10.0)
[2019-01-29 15:12] LABS: ERYTHROCYTE SEDIMENTATION RATE 30 mm/hr (0-30)
[2019-01-29 15:32] LABS: BLOOD UREA NITROGEN 8 MG/DL (7-18); C REACTIVE PROTEIN QUANTITATIV < 0.30 MG/DL (0.00-0.30); CALCIUM LEVEL 9.1 MG/DL (8.8-10.2); CARBON DIOXIDE LEVEL 27 MEQ/L (21-32); CHLORIDE LEVEL 99 MEQ/L (98-107); GLOMERULAR FILTRATION RATE > 60.0 (>39); GLUCOSE, FASTING 76 MG/DL (70-100); POTASSIUM SERUM 4.2 MEQ/L (3.5-5.1); SODIUM LEVEL 136 MEQ/L (136-145)
== END ==
LOC: M SFHCPLAZ 11:57
PROVIDERS: ATTEND Internal Medicine Infectious Disease
DX: T81.49XA Infection following a procedure, other surgical site, initial encounter (principal); F20.9 Schizophrenia, unspecified; Z23 Encounter for immunization
CPT/HCPCS: 36415; 80048; 85025; 85652; 86140; 90682; G0008; G0463

== ENCOUNTER → 2019-02-20 | Outpatient (REF) | payer MEDICARE ==
[2019-02-21 11:45] LABS: BASO # 0.1 10^3/uL (0.0-0.2); BASO % 1.6 % (0.0-1.0); EOS # 0.4 10^3/uL (0.0-0.5); EOS % 7.1 % (0.0-3.0); HEMATOCRIT 36.4 % (36.0-47.0); LYMPH # 3.2 10^3/uL (1.5-5.0); MEAN CORPUSCULAR HEMOGLOBIN 27.1 pg (27.0-33.0); MEAN CORPUSCULAR HGB CONC 30.2 g/dl (32.0-36.5); MEAN CORPUSCULAR VOLUME 89.7 fl (80.0-96.0); MONO # 0.5 10^3/uL (0.0-0.8); MONO % 8.2 % (0.0-5.0); NEUTROPHILS # 1.3 10^3/uL (1.5-8.5); PLATELET COUNT, AUTOMATED 298 10^3/uL (150-450); RED BLOOD COUNT 4.06 10^6/uL (4.00-5.40); WHITE BLOOD COUNT 5.5 10^3/uL (4.0-10.0)
[2019-02-21 12:03] LABS: BLOOD UREA NITROGEN 11 MG/DL (7-18); C REACTIVE PROTEIN QUANTITATIV < 0.30 MG/DL (0.00-0.30); CALCIUM LEVEL 9.3 MG/DL (8.8-10.2); CARBON DIOXIDE LEVEL 31 MEQ/L (21-32); CHLORIDE LEVEL 100 MEQ/L (98-107); GLOMERULAR FILTRATION RATE > 60.0 (>39); GLUCOSE, FASTING 122 MG/DL (70-100); SODIUM LEVEL 136 MEQ/L (136-145)
[2019-02-21 12:27] LABS: ERYTHROCYTE SEDIMENTATION RATE 12 mm/hr (0-30)
== END ==
LOC: M SFHCPLAZ 11:11
PROVIDERS: ATTEND Internal Medicine Infectious Disease
DX: T81.49XA Infection following a procedure, other surgical site, initial encounter (principal); F32.9 Major depressive disorder, single episode, unspecified

== ENCOUNTER → 2019-02-22 | Outpatient (REF) | payer MEDICARE ==
[2019-02-23 12:00] LABS: BLOOD UREA NITROGEN 9 MG/DL (7-18); CALCIUM LEVEL 8.8 MG/DL (8.8-10.2); CARBON DIOXIDE LEVEL 29 MEQ/L (21-32); CHLORIDE LEVEL 104 MEQ/L (98-107); CREATININE FOR GFR 0.58 MG/DL (0.55-1.30); GLOMERULAR FILTRATION RATE > 60.0 (>39); GLUCOSE, FASTING 150 MG/DL (70-100); POTASSIUM SERUM 4.2 MEQ/L (3.5-5.1); SODIUM LEVEL 140 MEQ/L (136-145)
== END ==
LOC: M SFHCCLAY 14:05
PROVIDERS: ATTEND Internal Medicine Infectious Disease
DX: E87.5 Hyperkalemia (principal)

== ENCOUNTER → 2019-05-25 | Outpatient (CLI) | payer MEDICARE, OTHER ==
[~2019-05-25] MED LIST changes: -MONT10TA2 PO; +MONT10TA4 PO
--- NOTE | 2019-05-25 15:23 | REP ---
BILATERAL SCREENING DIGITAL MAMMOGRAM WITH 3D TOMOSYNTHESIS: There are no palpable abnormalities or other breast complaints. The the patient states she has not had a clinical breast examination in over a [facility] Lifetime Breast Cancer Risk Score is: 3.8% . Comparison is 12/21/2013. The breasts are heterogeneously dense, which could obscure small masses. There is no dominant mass, micro calcific cluster or architectural distortion that would indicate malignancy. There are benign calcifications. There are no additional findings on 3D tomosynthesiss. There is no change from the prior study. Impression: BIRADS/ACR category 1 mammogram. Negative. Recommendation: Routine annual screening mammography. Because of the increased breast density, annual adjunctive breast MRI in addition to screening mammography is recommended. These can be performed at alternating six month intervals. This mammogram was interpreted with the aid of a FDA approved computer-aided detection system. A. Negative mammogram reports should not delay biopsy if a dominant or clinically suspicious mass is present. B. Not all breast cancers are identified by mammography or tomosynthesis. C. Adenosis and dense breasts may obscure an underlying neoplasm. Patient letter M1 dense breasts. Electronically Signed by Osorio Freeman MD 05/25/2019 03:14 P
== END ==
LOC: M WHC 10:49
PROVIDERS: ATTEND Family Medicine
DX: Z12.31 Encounter for screening mammogram for malignant neoplasm of breast (principal)

== ENCOUNTER → 2019-09-05 | Outpatient (REF) | payer OTHER ==
[~2019-09-05] MED LIST changes: +iron
[2019-09-05 14:27] LABS: BASO # 0.1 10^3/uL (0.0-0.2); BASO % 0.9 % (0.0-1.0); EOS # 0.3 10^3/uL (0.0-0.5); EOS % 5.1 % (0.0-3.0); HEMATOCRIT 34.1 % (36.0-47.0); HEMOGLOBIN 10.6 g/dl (12.0-15.5); LYMPH # 1.9 10^3/uL (1.5-5.0); LYMPH % 29.4 % (24.0-44.0); MEAN CORPUSCULAR HEMOGLOBIN 25.9 pg (27.0-33.0); MEAN CORPUSCULAR HGB CONC 31.1 g/dl (32.0-36.5); MEAN CORPUSCULAR VOLUME 83.2 fl (80.0-96.0); MONO # 0.4 10^3/uL (0.0-0.8); MONO % 6.6 % (0.0-5.0); NEUTROPHILS # 3.8 10^3/uL (1.5-8.5); NEUTROPHILS % 57.8 % (36.0-66.0); PLATELET COUNT, AUTOMATED 326 10^3/uL (150-450); WHITE BLOOD COUNT 6.5 10^3/uL (4.0-10.0)
[2019-09-05 14:53] LABS: IRON (FE) 36 UG/DL (50-170); PERCENT SATURATION 6.9 % (13.2-45.0); TOTAL IRON BINDING CAPACITY 523 UG/DL (250-450)
[2019-09-05 15:04] LABS: FOLATE > 24.0 NG/ML; VITAMIN B12 LEVEL 602 PG/ML
== END ==
LOC: M SFHCCLAY 08:11
PROVIDERS: ATTEND Family Medicine
DX: D64.9 Anemia, unspecified (principal)

== ENCOUNTER 2020-01-03 07:57 | Emergency (ER) | payer MEDICARE, OTHER ==
[~2020-01-03] VITALS: Ht 154.9 cm; Wt 65.5 kg
[~2020-01-03 07:57] MED LIST changes: -iron
[2020-01-03] MEDS ORDERED: iron (08:10)
--- NOTE | 2020-01-03 08:58 | REPVR ---
PROCEDURE INFORMATION: Exam: XR Right Hand Exam date and time: 01/03/2020 8:28 AM Age: 74 years old Clinical indication: Pain; Finger(s); Right; Patient HX: Patient fell mopping TECHNIQUE: Imaging protocol: XR Right hand. Views: Frontal, lateral, and 2 oblique views. COMPARISON: No relevant prior studies available. FINDINGS: Bones/joints: Fractures of the distal 2nd through 5th metacarpal metaphyses with mild ulnar and anterior angulation of the distal segments. The 2nd through 5th metacarpals are mildly anteriorly impacted. Diffuse osteopenia. Dorsal articular marginal hypertrophy of the 1st interphalangeal joint. Joint narrowing and marginal hypertrophy at the 2nd and 5th distal interphalangeal joints. Soft tissues: .Moderate dorsal metacarpal soft tissue swelling. No ectopic gas or foreign body identified. IMPRESSION: 1. Fractures distal 2nd through 5th metacarpal metaphyses. 2. Primary osteoarthritis. Electronically signed by: Rene Geiger On 01/03/2020 08:58:01 AM
--- NOTE | 2020-01-03 09:00 | REPVR ---
PROCEDURE INFORMATION: Exam: XR Right Forearm Exam date and time: 01/03/2020 8:28 AM Age: 74 years old Clinical indication: Pain; Hand; Right; Additional info: Fell TECHNIQUE: Imaging protocol: XR Right forearm. Views: 2 views. COMPARISON: CR Humerus 01/05/2019 11:18 AM FINDINGS: Bones/joints: Previous distal humeral orthopedic reconstruction. The radius and ulna are intact. Second through 5th metacarpal fractures redemonstrated. Soft tissues: Normal. IMPRESSION: 1. No radial or ulnar fracture identified. 2. Please see the right hand radiographic report of the same date for additional findings. Electronically signed by: Rene Geiger On 01/03/2020 09:00:28 AM
[2020-01-03] MEDS ORDERED: NORCO, ANEXSIA 5/325MG TABLET (HYDROcodone/ACETAMINOPHEN) PO ONE (10:00)
[2020-01-03 10:14] VITALS: BP 129/92
[2020-01-24] MEDS ORDERED: COLLCAP PO (10:47)
[2020-01-24] MEDS ORDERED: CALCCAP4 PO (10:47)
[2020-01-24] MEDS ORDERED: IRON27TA2 PO (10:47)
[2020-01-24] MEDS ORDERED: BIOT10009 PO (10:47)
[2020-01-24] MEDS ORDERED: FOLI400T PO (10:47)
== END 2020-01-03 10:18 | disposition home or self-care (01) ==
LOC: M ED 07:57
DX: S62.310A Displaced fracture of base of second metacarpal bone, right hand, initial encounter for closed fracture (principal); S62.312A Displaced fracture of base of third metacarpal bone, right hand, initial encounter for closed fracture; S62.314A Displaced fracture of base of fourth metacarpal bone, right hand, initial encounter for closed fracture; S62.316A Displaced fracture of base of fifth metacarpal bone, right hand, initial encounter for closed fracture; M19.041 Primary osteoarthritis, right hand; W19.XXXA Unspecified fall, initial encounter; Y92.099 Unspecified place in other non-institutional residence as the place of occurrence of the external cause; Y93.E5 Activity, floor mopping and cleaning; Y99.9 Unspecified external cause status; I25.2 Old myocardial infarction; I10 Essential (primary) hypertension; J44.9 Chronic obstructive pulmonary disease, unspecified; K57.92 Diverticulitis of intestine, part unspecified, without perforation or abscess without bleeding; E03.9 Hypothyroidism, unspecified; F60.0 Paranoid personality disorder; F20.9 Schizophrenia, unspecified; F41.9 Anxiety disorder, unspecified; F32.9 Major depressive disorder, single episode, unspecified; Z79.82 Long term (current) use of aspirin; Z79.899 Other long term (current) drug therapy; Z91.030 Bee allergy status; Z91.040 Latex allergy status

== ENCOUNTER → 2020-01-27 | Outpatient (CLI) | payer OTHER ==
[~2020-01-27] MED LIST changes: +BIOT10009 PO; +CALCCAP4 PO; +COLLCAP PO; +FOLI400T PO; +IRON27TA2 PO; +iron
== END ==
LOC: M LABSMTC 10:14
PROVIDERS: ATTEND Anesthesiology
DX: Z01.812 Encounter for preprocedural laboratory examination (principal); Z20.828 Contact with and (suspected) exposure to other viral communicable diseases

== ENCOUNTER 2020-02-01 07:45 | Day surgery (SDC) | payer OTHER ==
[~2020-02-01] VITALS: Ht 152.4 cm; Wt 65.8 kg
[~2020-02-01 07:45] MED LIST changes: +NS 1,000 ML IV ONE
--- NOTE | 2020-02-01 10:16 | ROOR ---
Patient Name: Daisy Cooney Procedure Date: 02/01/2020 9:21 AM Date of : 1945 Age: 74 Room: [facility] Gender: Female Note Status: Finalized Procedure: Colonoscopy Indications: High risk colon cancer surveillance: Personal history of colonic polyps Providers: Kishore Mariee MD Referring MD: Jaime Sosa MD Requesting Provider: Medicines: Monitored Anesthesia Care Complications: No immediate complications. Procedure: Pre-Anesthesia Assessment: - Prior to the procedure, a History and Physical was performed, and patient medications and allergies were reviewed. The patient is competent. The risks and benefits of the procedure and the sedation options and risks were discussed with the patient. All questions were answered and informed consent was obtained. Patient identification and proposed procedure were verified by the physician, the nurse and the anesthesiologist in the procedure room. Mental Status Examination: alert and oriented. Airway Examination: normal oropharyngeal airway and neck mobility. Respiratory Examination: clear to auscultation. CV Examination: normal. Prophylactic Antibiotics: The patient does not require prophylactic antibiotics. Prior Anticoagulants: The patient has taken no previous anticoagulant or antiplatelet agents. ASA Grade Assessment: III - A patient with severe systemic disease. After reviewing the risks and benefits, the patient was deemed in satisfactory condition to undergo the procedure. The anesthesia plan was to use monitored anesthesia care (MAC). Immediately prior to administration of medications, the patient was re-assessed for adequacy to receive sedatives. The heart rate, respiratory rate, oxygen saturations, blood pressure, adequacy of pulmonary ventilation, and response to care were monitored throughout the procedure. The physical status of the patient was re-assessed after the procedure. The Colonoscope was introduced through the anus and advanced to the terminal ileum, with identification of the appendiceal orifice and IC valve. The colonoscopy was performed without difficulty. The patient tolerated the procedure well. The quality of the bowel preparation was good. The terminal ileum, ileocecal valve, appendiceal orifice, and rectum were photographed. Scope insertion time was 3 minutes. Scope withdrawal time was 9 minutes. The total duration of the procedure was 15 minutes. Findings: The perianal and digital rectal examinations were normal. The terminal ileum appeared normal. Multiple small and large-mouthed diverticula were found from sigmoid to descending colon. There was no evidence of diverticular bleeding. Non-bleeding external and internal hemorrhoids were found during retroflexion. The hemorrhoids were medium-sized. Impression: - The examined portion of the ileum was normal. - Severe diverticulosis from sigmoid to descending colon. There was no evidence of diverticular bleeding. - Non-bleeding external and internal hemorrhoids. - No specimens collected. Recommendation: - Patient has a contact number available for emergencies. The signs and symptoms of potential delayed complications were discussed with the patient. Return to normal activities tomorrow. Written discharge instructions were provided to the patient. - High fiber diet. - Continue present medications. - Use fiber, for example Citrucel, Fibercon, Konsyl or Metamucil. - Repeat colonoscopy is not recommended due to current age (66 years or older) depending on clinical and functional status. - Return to primary care physician. Procedure Code(s): --- Professional --- 05120, Colonoscopy, flexible; diagnostic, including collection of specimen(s) by brushing or washing, when performed (separate procedure) Diagnosis Code(s): --- Professional --- Z86.010, Personal history of colonic polyps K64.8, Other hemorrhoids K57.30, Diverticulosis of large intestine without perforation or abscess without bleeding CPT copyright 2019 [employer]. All rights reserved. The codes documented in this report are preliminary and upon flexographic printing press operator review may be revised to meet current compliance requirements. Kishore Mariee MD Kishore Mariee MD 02/01/2020 10:15:22 AM Electronically signed by Kishore Mariee MD Number of Addenda: 0 Note Initiated On: 02/01/2020 9:21 AM Estimated Blood Loss: Estimated blood loss was minimal.
[2020-02-01 10:25] VITALS: BP 200/88
[2020-02-01] MEDS ORDERED: LIDOCAINE 2% 100MG/5ML SDV (FOR ANES.) As Ordered ONE (10:27)
[2020-02-01] MEDS ORDERED: propofoL 500 MG/50 ML VIAL As Ordered ONE (10:27)
[2020-02-01] MEDS ORDERED: ePHEDrine SULFATE 25 MG/5 ML(5MG/ML) SYRINGE As Ordered ONE (10:27)
== END 2020-02-01 10:30 | disposition home or self-care (01) ==
LOC: M OPP 07:45
PROVIDERS: ATTEND Internal Medicine Gastroenterology
DX: Z12.11 Encounter for screening for malignant neoplasm of colon (principal); Z86.010 Personal history of colon polyps; Z80.0 Family history of malignant neoplasm of digestive organs; K57.30 Diverticulosis of large intestine without perforation or abscess without bleeding; K64.8 Other hemorrhoids; K59.00 Constipation, unspecified; M81.0 Age-related osteoporosis without current pathological fracture; J44.9 Chronic obstructive pulmonary disease, unspecified; F41.9 Anxiety disorder, unspecified; F32.9 Major depressive disorder, single episode, unspecified; K21.9 Gastro-esophageal reflux disease without esophagitis; Z80.3 Family history of malignant neoplasm of breast; Z87.891 Personal history of nicotine dependence; Z91.030 Bee allergy status; Z91.040 Latex allergy status; Z79.82 Long term (current) use of aspirin; Z79.899 Other long term (current) drug therapy

== ENCOUNTER → 2020-04-01 | Outpatient (REF) | payer OTHER ==
[~2020-04-01] MED LIST changes: +MONT10TA10 PO; -MONT10TA4 PO; -NS 1,000 ML IV ONE; +RISP-7 PO; +RISP-8 PO; -RISP0.5T3 PO; -RISP1TAB3 PO
[2020-04-01 12:21] LABS: BASO # 0.1 10^3/uL (0.0-0.2); BASO % 1.5 % (0.0-1.0); EOS # 0.4 10^3/uL (0.0-0.5); EOS % 7.4 % (0.0-3.0); HEMATOCRIT 41.6 % (36.0-47.0); HEMOGLOBIN 13.1 g/dl (12.0-15.5); LYMPH # 1.9 10^3/uL (1.5-5.0); LYMPH % 34.5 % (24.0-44.0); MEAN CORPUSCULAR HEMOGLOBIN 28.6 pg (27.0-33.0); MEAN CORPUSCULAR HGB CONC 31.5 g/dl (32.0-36.5); MEAN CORPUSCULAR VOLUME 90.8 fl (80.0-96.0); MONO # 0.4 10^3/uL (0.0-0.8); MONO % 7.8 % (0.0-5.0); NEUTROPHILS # 2.7 10^3/uL (1.5-8.5); NEUTROPHILS % 48.6 % (36.0-66.0); PLATELET COUNT, AUTOMATED 220 10^3/uL (150-450); RED BLOOD COUNT 4.58 10^6/uL (4.00-5.40); WHITE BLOOD COUNT 5.5 10^3/uL (4.0-10.0)
[2020-04-01 12:52] LABS: ERYTHROCYTE SEDIMENTATION RATE 10 mm/hr (0-30)
[2020-04-01 12:58] LABS: ALBUMIN 3.8 GM/DL (3.2-5.2); ALT/SGPT 20 U/L (12-78); BILIRUBIN,TOTAL 0.4 MG/DL (0.2-1.0); BLOOD UREA NITROGEN 10 MG/DL (7-18); CALCIUM LEVEL 9.7 MG/DL (8.8-10.2); CARBON DIOXIDE LEVEL 33 MEQ/L (21-32); CHLORIDE LEVEL 102 MEQ/L (98-107); CREATININE FOR GFR 0.58 MG/DL (0.55-1.30); GLOMERULAR FILTRATION RATE > 60.0 (>39); GLUCOSE, FASTING 97 MG/DL (70-100); POTASSIUM SERUM 4.5 MEQ/L (3.5-5.1); RHEUMATOID FACTOR QUANT < 10.0 IU/ML (<15.0); SODIUM LEVEL 138 MEQ/L (136-145); TOTAL PROTEIN 6.8 GM/DL (6.4-8.2)
[2020-04-03 00:07] LABS: ANA (HEP2) Negative (.); CYCLIC CITRULLINATED PEPTIDE 4 units (0-19)
== END ==
LOC: M SFHCCLAY 07:59
PROVIDERS: ATTEND Family Medicine
DX: M06.9 Rheumatoid arthritis, unspecified (principal)

== ENCOUNTER → 2020-04-08 | Outpatient (REF) | payer OTHER | LOC: M SFHCCLAY 15:40 | PROVIDERS: ATTEND Family Medicine | DX: R05 Cough (principal); Z11.52 Encounter for screening for COVID-19 | CPT/HCPCS: G0463; U0003 ==

== ENCOUNTER → 2020-05-21 | Outpatient (CLI) | payer OTHER ==
[~2020-05-21] MED LIST changes: -FOLI400T PO; +FOLI400T13 PO; -PEG1POW PO; +POLY17PO18 PO
--- NOTE | 2020-05-21 12:05 | REP ---
INDICATION: R05 COUGH, WHEEZING PMH OF COPD COMPARISON: 11/26/2018 TECHNIQUE: PA and lateral. FINDINGS: The mediastinum and cardiac silhouette are normal. The lung nesbitt demonstrate chronic changes without acute consolidation, effusion, or pneumothorax. The skeletal structures demonstrate stable healed rib fractures. IMPRESSION: No acute cardiopulmonary process. <Electronically signed by Winston Okeefe > 05/21/20 1201
== END ==
LOC: M CLY 11:06
PROVIDERS: ATTEND Physician Assistant
DX: R05 Cough (principal)
CPT/HCPCS: 71046; 87426; 94640; G0463

== ENCOUNTER → 2020-06-25 | Outpatient (CLI) | payer OTHER ==
--- NOTE | 2020-06-25 17:02 | REP ---
INDICATION: J44.1; COPD WITH ACUTE EXARCERBATION. COMPARISON: Two view chest 05/21/2020. TECHNIQUE: PA and lateral chest FINDINGS: The cardiovascular silhouette within normal limits. The lungs are clear, however the right base somewhat less opacified than the comparison study. Degenerative changes seen of the thoracic spine with vertebral flattening, disc space narrowing, and anterior osteophytic spurring. No focal compression fracture. Soft tissues appear unremarkable. IMPRESSION: Essentially clear lungs however the right base somewhat less opacified than on the comparison study of 05/21/2020. Could represent an early process. Follow-up recommended. Degenerative changes. <Electronically signed by Rasheed Green > 06/25/20 [id number]
== END ==
LOC: M CLY 13:24
PROVIDERS: ATTEND Family Medicine
DX: J44.1 Chronic obstructive pulmonary disease with (acute) exacerbation (principal); M51.34 Other intervertebral disc degeneration, thoracic region

== ENCOUNTER → 2020-10-14 | Outpatient (CLI) | payer OTHER ==
[~2020-10-14] MED LIST changes: -DOXY100C PO; +DOXY100C3 PO
--- NOTE | 2020-10-14 15:29 | REP ---
INDICATION: M54.81, OCCIPITAL NEURALGIA OF LEFT SIDE. COMPARISON: CT cervical spine, 06/16/2015. TECHNIQUE: 7 view cervical spine series including flexion extension lateral views were obtained. FINDINGS: There is maintenance of the normal cervical lordosis. There is degenerative disc disease, C4-5, C5-6 and C6-7 with narrowing of the intervertebral disc spaces and marginal osteophytes. There is multilevel facet arthropathy. There is 4 mm of degenerative anterolisthesis of C4 on C5. there is no evidence of instability with flexion and extension. There are no compression fractures. There is calcific vascular disease of the left carotid bifurcation. IMPRESSION: 1. Multilevel degenerative disc disease, as described. 2. There is spondylosis with degenerative grade 1 anterolisthesis, C4 on C5. 3. No evidence of instability with flexion and extension. 4. 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 <Electronically signed by Jacoby Chavarria > 10/14/20 [id number]
== END ==
LOC: M CLY 14:16
PROVIDERS: ATTEND Family Medicine
DX: M50.321 Other cervical disc degeneration at C4-C5 level (principal); M50.322 Other cervical disc degeneration at C5-C6 level; M50.323 Other cervical disc degeneration at C6-C7 level; M54.81 Occipital neuralgia
CPT/HCPCS: 72050; G0463

== ENCOUNTER 2020-11-12 13:52 | Emergency (ER) | payer OTHER ==
[~2020-11-12] VITALS: Ht 152.4 cm; Wt 66.8 kg
[2020-11-12] VITALS (7 sets, daily range): BP systolic 146–170; BP diastolic 67–75
[~2020-11-12 13:52] MED LIST changes: -COMBAER6 INH; +IBUP200T45 PO; -IBUP200T46 PO; +MONT10TA10 PO; -MONT10TA97 PO; -MUCI1TAB16 PO; -PRES10CA2 PO; +VERA180T3 PO; -VERA180T42 PO
[2020-11-12 15:21] LABS: BASO % 0.4 % (0.0-1.0); EOS # 0.2 10^3/uL (0.0-0.5); EOS % 1.4 % (0.0-3.0); HEMATOCRIT 21.1 % (36.0-47.0); LYMPH # 2.1 10^3/uL (1.5-5.0); LYMPH % 19.8 % (24.0-44.0); MEAN CORPUSCULAR HEMOGLOBIN 23.4 pg (27.0-33.0); MEAN CORPUSCULAR HGB CONC 30.3 g/dl (32.0-36.5); MONO # 0.5 10^3/uL (0.0-0.8); NEUTROPHILS # 7.8 10^3/uL (1.5-8.5); NEUTROPHILS % 73.1 % (36.0-66.0); PLATELET COUNT, AUTOMATED 365 10^3/uL (150-450); RED BLOOD COUNT 2.74 10^6/uL (4.00-5.40); WHITE BLOOD COUNT 10.7 10^3/uL (4.0-10.0)
[2020-11-12 15:29] LABS: HEMOGLOBIN 6.4 g/dl (12.0-15.5)
[2020-11-12 15:39] LABS: BLOOD UREA NITROGEN 6 MG/DL (7-18); CALCIUM LEVEL 8.4 MG/DL (8.8-10.2); CARBON DIOXIDE LEVEL 27 MEQ/L (21-32); CHLORIDE LEVEL 110 MEQ/L (98-107); CREATININE FOR GFR 0.51 MG/DL (0.55-1.30); GLOMERULAR FILTRATION RATE > 60.0 (>39); GLUCOSE, FASTING 88 MG/DL (70-100); POTASSIUM SERUM 3.7 MEQ/L (3.5-5.1); SODIUM LEVEL 142 MEQ/L (136-145)
[2020-11-12 18:01] LABS: RSV AMPLIFICATION NEGATIVE (NEGATIVE)
[2020-11-12] MEDS ORDERED: MUCI1TAB16 PO (18:42)
[2020-11-12] MEDS ORDERED: COMBAER6 INH (18:42)
[2020-11-12] MEDS ORDERED: PRES10CA2 PO (18:43)
[2020-11-12] MEDS ORDERED: HOME MED LIST COMPLETE! XX SCH (18:45)
[2020-11-12] MEDS ORDERED: PANTOPRAZOLE 40MG TAB (PROTONIX) PO ONE (18:55)
[2020-11-12] MEDS ORDERED: PANTOPRAZOLE 40MG VIAL (C9113 PER 1) IV ONE (19:00)
[2020-11-12] MEDS ORDERED: SYMBICORT 160/4.5MCG INHALER 6GM INH SCH (20:00)
== END 2020-11-12 21:31 | disposition short-term general hospital (02) ==
LOC: M ED 13:52
DX: K92.2 Gastrointestinal hemorrhage, unspecified (principal); R71.0 Precipitous drop in hematocrit; R91.8 Other nonspecific abnormal finding of lung field; R19.5 Other fecal abnormalities; J44.1 Chronic obstructive pulmonary disease with (acute) exacerbation; E04.1 Nontoxic single thyroid nodule; F20.9 Schizophrenia, unspecified; I10 Essential (primary) hypertension; I25.2 Old myocardial infarction; Z87.19 Personal history of other diseases of the digestive system; J44.9 Chronic obstructive pulmonary disease, unspecified; E03.9 Hypothyroidism, unspecified; M81.0 Age-related osteoporosis without current pathological fracture; M54.81 Occipital neuralgia; Z87.891 Personal history of nicotine dependence; Z79.82 Long term (current) use of aspirin; Z79.899 Other long term (current) drug therapy; Z91.030 Bee allergy status; Z91.040 Latex allergy status
CPT/HCPCS: 36430; 80048; 80053; 84439; 84443; 85025; 86780; 86850; 86900; 86901; 86920; 87631; 93041; 94760; 96374; 99285; C9113; P9016

== ENCOUNTER → 2020-11-12 | Outpatient (REF) | payer OTHER ==
[~2020-11-12] MED LIST changes: +COMBAER6 INH; -IBUP200T45 PO; +IBUP200T46 PO; -MONT10TA10 PO; +MONT10TA97 PO; +MUCI1TAB16 PO; +PRES10CA2 PO; -VERA180T3 PO; +VERA180T42 PO
[2020-11-12 12:39] LABS: BASO # 0.1 10^3/uL (0.0-0.2); BASO % 0.7 % (0.0-1.0); EOS # 0.2 10^3/uL (0.0-0.5); EOS % 2.6 % (0.0-3.0); HEMATOCRIT 22.6 % (36.0-47.0); LYMPH # 1.8 10^3/uL (1.5-5.0); LYMPH % 20.4 % (24.0-44.0); MEAN CORPUSCULAR HGB CONC 28.8 g/dl (32.0-36.5); MEAN CORPUSCULAR VOLUME 80.1 fl (80.0-96.0); MONO # 0.7 10^3/uL (0.0-0.8); MONO % 7.6 % (2.0-8.0); NEUTROPHILS # 6.1 10^3/uL (1.5-8.5); NEUTROPHILS % 68.5 % (36.0-66.0); PLATELET COUNT, AUTOMATED 399 10^3/uL (150-450); RED BLOOD COUNT 2.82 10^6/uL (4.00-5.40); WHITE BLOOD COUNT 8.9 10^3/uL (4.0-10.0)
[2020-11-12 13:08] LABS: ALBUMIN 3.1 GM/DL (3.2-5.2); ALT/SGPT 18 U/L (12-78); BILIRUBIN,TOTAL 0.3 MG/DL (0.2-1.0); BLOOD UREA NITROGEN 11 MG/DL (7-18); CALCIUM LEVEL 8.8 MG/DL (8.8-10.2); CARBON DIOXIDE LEVEL 28 MEQ/L (21-32); CHLORIDE LEVEL 111 MEQ/L (98-107); CREATININE FOR GFR 0.55 MG/DL (0.55-1.30); FREE T4 1.03 NG/DL (0.76-1.46); GLOMERULAR FILTRATION RATE > 60.0 (>39); GLUCOSE, FASTING 130 MG/DL (70-100); POTASSIUM SERUM 4.3 MEQ/L (3.5-5.1); SODIUM LEVEL 142 MEQ/L (136-145); TOTAL PROTEIN 6.3 GM/DL (6.4-8.2)
[2020-11-12 13:09] LABS: HEMOGLOBIN 6.5 g/dl (12.0-15.5)
== END ==
LOC: M SFHCCLAY 07:43
PROVIDERS: ATTEND Family Medicine
DX: J44.1 Chronic obstructive pulmonary disease with (acute) exacerbation (principal); E04.1 Nontoxic single thyroid nodule; F20.9 Schizophrenia, unspecified; I10 Essential (primary) hypertension

== ENCOUNTER → 2020-11-24 | Outpatient (REF) | payer OTHER ==
[~2020-11-24] MED LIST changes: +COMBAER6 INH; +MUCI1TAB16 PO; +PRES10CA2 PO; -VERA180T3 PO; +VERA180T50 PO
[2020-11-24 11:50] LABS: HEMATOCRIT 30.2 % (36.0-47.0); HEMOGLOBIN 8.9 g/dl (12.0-15.5); MEAN CORPUSCULAR HEMOGLOBIN 24.4 pg (27.0-33.0); MEAN CORPUSCULAR HGB CONC 29.5 g/dl (32.0-36.5); MEAN CORPUSCULAR VOLUME 82.7 fl (80.0-96.0); PLATELET COUNT, AUTOMATED 255 10^3/uL (150-450); RED BLOOD COUNT 3.65 10^6/uL (4.00-5.40); WHITE BLOOD COUNT 6.5 10^3/uL (4.0-10.0)
== END ==
LOC: M LABDRAWC 11:30
DX: D62 Acute posthemorrhagic anemia (principal)

== ENCOUNTER → 2020-12-18 | Outpatient (REF) | payer OTHER ==
[2020-12-18 12:02] LABS: HEMATOCRIT 37.2 % (36.0-47.0); HEMOGLOBIN 11.5 g/dl (12.0-15.5); MEAN CORPUSCULAR HEMOGLOBIN 26.7 pg (27.0-33.0); MEAN CORPUSCULAR HGB CONC 30.9 g/dl (32.0-36.5); MEAN CORPUSCULAR VOLUME 86.3 fl (80.0-96.0); PLATELET COUNT, AUTOMATED 216 10^3/uL (150-450); RED BLOOD COUNT 4.31 10^6/uL (4.00-5.40); WHITE BLOOD COUNT 5.3 10^3/uL (4.0-10.0)
[2020-12-18 12:52] LABS: HEMOGLOBIN A1c 4.9 %
[2020-12-18 13:30] LABS: BLOOD UREA NITROGEN 9 MG/DL (7-18); CALCIUM LEVEL 9.2 MG/DL (8.8-10.2); CARBON DIOXIDE LEVEL 31 MEQ/L (21-32); CHLORIDE LEVEL 103 MEQ/L (98-107); CREATININE FOR GFR 0.53 MG/DL (0.55-1.30); GLOMERULAR FILTRATION RATE > 60.0 (>39); GLUCOSE, FASTING 92 MG/DL (70-100); IRON (FE) 55 UG/DL (50-170); POTASSIUM SERUM 4.3 MEQ/L (3.5-5.1); SODIUM LEVEL 138 MEQ/L (136-145)
== END ==
LOC: M SFHCCLAY 08:41
PROVIDERS: ATTEND Family Medicine
DX: D50.9 Iron deficiency anemia, unspecified (principal); K20.90 Esophagitis, unspecified without bleeding; I20.1 Angina pectoris with documented spasm

== ENCOUNTER → 2020-12-31 | Outpatient (REF) | payer OTHER ==
[~2020-12-31] MED LIST changes: -IBUP200T45 PO; +IBUP200T46 PO; +VERA180T42 PO; -VERA180T50 PO
== END ==
LOC: M SFHCCLAY 10:10
PROVIDERS: ATTEND Physician Assistant
DX: R05.9 Cough, unspecified (principal)
CPT/HCPCS: 87426; G0463; U0003

== ENCOUNTER → 2021-01-15 | Outpatient (REF) | payer OTHER ==
[2021-01-15 11:46] LABS: HEMATOCRIT 41.3 % (36.0-47.0); HEMOGLOBIN 13.1 g/dl (12.0-15.5); MEAN CORPUSCULAR HEMOGLOBIN 27.5 pg (27.0-33.0); MEAN CORPUSCULAR HGB CONC 31.7 g/dl (32.0-36.5); MEAN CORPUSCULAR VOLUME 86.6 fl (80.0-96.0); PLATELET COUNT, AUTOMATED 215 10^3/uL (150-450); RED BLOOD COUNT 4.77 10^6/uL (4.00-5.40); WHITE BLOOD COUNT 6.7 10^3/uL (4.0-10.0)
[2021-01-15 12:27] LABS: ALBUMIN 3.4 GM/DL (3.2-5.2); ALT/SGPT 24 U/L (12-78); BILIRUBIN,TOTAL 0.3 MG/DL (0.2-1.0); BLOOD UREA NITROGEN 11 MG/DL (7-18); CALCIUM LEVEL 9.2 MG/DL (8.8-10.2); CARBON DIOXIDE LEVEL 27 MEQ/L (21-32); CHLORIDE LEVEL 106 MEQ/L (98-107); CREATININE FOR GFR 0.57 MG/DL (0.55-1.30); GLOMERULAR FILTRATION RATE > 60.0 (>39); GLUCOSE, FASTING 95 MG/DL (70-100); POTASSIUM SERUM 4.2 MEQ/L (3.5-5.1); SODIUM LEVEL 141 MEQ/L (136-145); TOTAL PROTEIN 6.5 GM/DL (6.4-8.2)
== END ==
LOC: M SFHCCLAY 08:02
PROVIDERS: ATTEND Family Medicine
DX: J44.9 Chronic obstructive pulmonary disease, unspecified (principal); Z87.19 Personal history of other diseases of the digestive system

== ENCOUNTER → 2021-01-26 | Outpatient (CLI) | payer OTHER ==
--- NOTE | 2021-01-27 14:02 | SLEEPCENT ---
DATE: 01/26/2021 ORDERED BY: ART MARX MD Nocturnal polysomnography was performed for evaluation of sleep physiology in this patient with a history of mood disorder and insomnia. Seven hours and 32 minutes of data were reviewed. There were 383 minutes of sleep identified. Sleep latency was short at 16.5 minutes. REM sleep was delayed at 262.5 minutes. Sleep architecture showed poor progression and some fragmentation. There were two REM cycles late in the study. Overall, sleep efficiency was good at 85.5%. The electrocardiogram showed a sinus rhythm with an average heart rate of 60 beats per minute, some rate variability was seen surrounding respiratory events, rate range 50 to 70. EEG showed normal waveforms for wake and sleep. There were 112 respiratory events identified of 10 seconds in duration or greater for an apnea hypopnea index of 17.5. The events were primarily obstructive, not inclusive to sleep stage nor body position. Arousals from respiratory events occurred 4.1 times per hour. There was some limb activity noted in the EMG leads particularly early in the study. Limb movement arousal index was 5.5. IMPRESSIONS: 1. Obstructive sleep apnea syndrome (G47.33). Apnea hypopnea index 17.5. RECOMMENDATION: The patient should be encouraged to return to the sleep disorders center for pressure therapy. In the interim, alcohol and sedative avoidance should be practiced and caution exercised during the operation of motor vehicles. cc: SHALINI HANDY M.D.
== END ==
LOC: M SLEEP 20:00
PROVIDERS: ATTEND Internal Medicine Pulmonary Disease
DX: G47.30 Sleep apnea, unspecified (principal)

== ENCOUNTER → 2021-04-10 | Outpatient (CLI) | payer OTHER ==
[~2021-04-10] MED LIST changes: -MONT10TA10 PO; +MONT10TA97 PO
== END ==
LOC: M SLEEP 20:00
PROVIDERS: ATTEND Internal Medicine Pulmonary Disease
DX: G47.33 Obstructive sleep apnea (adult) (pediatric) (principal)

== ENCOUNTER → 2022-03-04 | Outpatient (CLI) | payer OTHER | LOC: M CLY 13:06 | PROVIDERS: ATTEND Nurse Practitioner Family | DX: J44.1 Chronic obstructive pulmonary disease with (acute) exacerbation (principal) ==

== ENCOUNTER → 2022-03-10 | Outpatient (REF) | payer OTHER ==
[2022-03-10 17:43] LABS: ALBUMIN 3.9 G/DL (3.2-5.2); BLOOD UREA NITROGEN 10 MG/DL (9-23); CALCIUM LEVEL 9.7 MG/DL (8.3-10.6); CARBON DIOXIDE LEVEL 34 MMOL/L (20-31); CHLORIDE LEVEL 102 MMOL/L (98-107); GLOMERULAR FILTRATION RATE > 60.0 (>39); GLUCOSE, FASTING 86 MG/DL (74-106); PHOSPHORUS LEVEL 4.1 MG/DL (2.4-5.1); POTASSIUM SERUM 5.6 MMOL/L (3.5-5.1); SODIUM LEVEL 142 MMOL/L (136-145)
== END ==
LOC: M SFHCCLAY 11:43
PROVIDERS: ATTEND Nurse Practitioner Family
DX: R93.89 Abnormal findings on diagnostic imaging of other specified body structures (principal); I10 Essential (primary) hypertension

== ENCOUNTER → 2022-03-18 | Outpatient (CLI) | payer OTHER ==
[~2022-03-18] MED LIST changes: +ISOVUE-370 76% 100ML VIAL As Ordered ONE
== END ==
LOC: M RAD 08:26
PROVIDERS: ATTEND Nurse Practitioner Family
DX: R93.89 Abnormal findings on diagnostic imaging of other specified body structures (principal); R91.8 Other nonspecific abnormal finding of lung field; E27.8 Other specified disorders of adrenal gland
CPT/HCPCS: 71260; Q9967

== ENCOUNTER → 2022-04-21 | Outpatient (CLI) | payer OTHER ==
[~2022-04-21] MED LIST changes: -ISOVUE-370 76% 100ML VIAL As Ordered ONE
== END ==
LOC: M PLARAD 12:30
PROVIDERS: ATTEND Internal Medicine Critical Care Medicine
DX: R91.8 Other nonspecific abnormal finding of lung field (principal); I65.23 Occlusion and stenosis of bilateral carotid arteries; J43.2 Centrilobular emphysema; I67.2 Cerebral atherosclerosis; I70.0 Atherosclerosis of aorta; K57.30 Diverticulosis of large intestine without perforation or abscess without bleeding; Z87.81 Personal history of (healed) traumatic fracture
CPT/HCPCS: 78815; A9552

== ENCOUNTER → 2022-05-27 | Outpatient (CLI) | payer OTHER | LOC: M SOG 09:13 | PROVIDERS: ATTEND Physician Assistant | DX: M19.031 Primary osteoarthritis, right wrist (principal); M19.032 Primary osteoarthritis, left wrist; M25.532 Pain in left wrist; M25.531 Pain in right wrist ==

== ENCOUNTER → 2022-06-03 | Outpatient (REF) | payer OTHER ==
[2022-06-03 11:35] LABS: BASO # 0.1 10^3/uL (0.0-0.2); BASO % 1.4 % (0.0-1.0); EOS # 0.1 10^3/uL (0.0-0.5); EOS % 1.9 % (0.0-3.0); HEMOGLOBIN 13.9 g/dl (12.0-15.5); LYMPH # 1.6 10^3/uL (1.5-5.0); LYMPH % 26.9 % (24.0-44.0); MEAN CORPUSCULAR HEMOGLOBIN 30.6 pg (27.0-33.0); MEAN CORPUSCULAR HGB CONC 32.3 g/dl (32.0-36.5); MEAN CORPUSCULAR VOLUME 94.7 fl (80.0-96.0); MONO # 0.4 10^3/uL (0.0-0.8); NEUTROPHILS # 3.6 10^3/uL (1.5-8.5); NEUTROPHILS % 62.5 % (36.0-66.0); PLATELET COUNT, AUTOMATED 239 10^3/uL (150-450); RED BLOOD COUNT 4.54 10^6/uL (4.00-5.40); WHITE BLOOD COUNT 5.8 10^3/uL (4.0-10.0)
[2022-06-03 11:49] LABS: INR 0.93; PROTHROMBIN TIME 12.7 SECONDS (12.5-14.5)
[2022-06-03 11:50] LABS: PARTIAL THROMBOPLASTIN TIME 31.7 SECONDS (24.8-34.2)
[2022-06-03 11:56] LABS: HEMOGLOBIN A1c 5.6 % (4.0-6.0)
[2022-06-03 12:07] LABS: BLOOD UREA NITROGEN 10 MG/DL (9-23); CALCIUM LEVEL 9.4 MG/DL (8.3-10.6); CARBON DIOXIDE LEVEL 32 MMOL/L (20-31); CHLORIDE LEVEL 103 MMOL/L (98-107); CREATININE FOR GFR 0.48 MG/DL (0.55-1.30); GLOMERULAR FILTRATION RATE > 60.0 (>39); GLUCOSE, FASTING 107 MG/DL (74-106); POTASSIUM SERUM 5.1 MMOL/L (3.5-5.1); SODIUM LEVEL 140 MMOL/L (136-145)
== END ==
LOC: M SFHCCLAY 08:59
PROVIDERS: ATTEND Family Medicine
DX: Z01.818 Encounter for other preprocedural examination (principal); J44.9 Chronic obstructive pulmonary disease, unspecified; I10 Essential (primary) hypertension; G56.00 Carpal tunnel syndrome, unspecified upper limb

== ENCOUNTER → 2022-06-11 | Outpatient (CLI) | payer OTHER ==
[~2022-06-11] MED LIST changes: +ALBU8.5H INH; +BACI1CAP PO; +CLON1TAB8 PO; +CORA1000 PO; +FISH1CAP26 PO; +FOLI400T5 PO; +GINK1TAB3 PO; +HEAL1TAB6 PO; +HOME MED LIST COMPLETE! XX SCH; +VERA240C PO
[2022-06-11 11:58] VITALS: BP 158/70
== END ==
LOC: M IRPRO 08:02
PROVIDERS: ATTEND Internal Medicine Critical Care Medicine
DX: R91.8 Other nonspecific abnormal finding of lung field (principal)

== ENCOUNTER → 2022-06-15 | Outpatient (CLI) | payer OTHER ==
[~2022-06-15] MED LIST changes: -HOME MED LIST COMPLETE! XX SCH
== END ==
LOC: M CARPUL 09:37
PROVIDERS: ATTEND Internal Medicine Critical Care Medicine
DX: J44.9 Chronic obstructive pulmonary disease, unspecified (principal)

== ENCOUNTER → 2023-01-24 | Outpatient (REF) | payer OTHER ==
[2023-01-24 13:01] LABS: BLOOD UREA NITROGEN 11 MG/DL (9-23); CREATININE FOR GFR 0.55 MG/DL (0.55-1.30); GLOMERULAR FILTRATION RATE > 60.0 (>39)
== END ==
LOC: M LABDRAWC 11:37
PROVIDERS: ATTEND Nurse Practitioner Family
DX: C34.11 Malignant neoplasm of upper lobe, right bronchus or lung (principal)

== ENCOUNTER → 2023-01-26 | Outpatient (CLI) | payer OTHER ==
[~2023-01-26] MED LIST changes: +ISOVUE-370 76% 100ML VIAL As Ordered ONE
== END ==
LOC: M RAD 15:43
PROVIDERS: ATTEND Nurse Practitioner Family
DX: C34.11 Malignant neoplasm of upper lobe, right bronchus or lung (principal); E05.90 Thyrotoxicosis, unspecified without thyrotoxic crisis or storm; J90 Pleural effusion, not elsewhere classified; M47.814 Spondylosis without myelopathy or radiculopathy, thoracic region; E27.9 Disorder of adrenal gland, unspecified
CPT/HCPCS: 71260; Q9967

== ENCOUNTER → 2023-03-15 | Outpatient (REF) | payer OTHER ==
[~2023-03-15] MED LIST changes: -ISOVUE-370 76% 100ML VIAL As Ordered ONE
[2023-03-15 18:29] LABS: RSV AMPLIFICATION NEGATIVE (NEGATIVE)
== END ==
LOC: M SFHCCLAY 13:39
PROVIDERS: ATTEND Physician Assistant
DX: Z01.411 Encounter for gynecological examination (general) (routine) with abnormal findings (principal); R05.1 Acute cough

== ENCOUNTER → 2023-04-28 | Outpatient (CLI) | payer OTHER ==
[~2023-04-28] MED LIST changes: +ALBU2.5V10; -ASPI-161 PO; +ASPI-615 PO; +BENZ-18; +COMPMIS43; +DOXY-443; +FLUT1BLS8; +RISP-105 PO; -RISP-7 PO; -RISP-8 PO; +RISP0.5T82 PO
== END ==
LOC: M CLY 13:27
PROVIDERS: ATTEND Family Medicine
DX: J44.9 Chronic obstructive pulmonary disease, unspecified (principal); J98.11 Atelectasis

== ENCOUNTER → 2023-04-28 | Outpatient (CLI) | payer OTHER | LOC: M CLY 13:21 | PROVIDERS: ATTEND Family Medicine | DX: J44.9 Chronic obstructive pulmonary disease, unspecified (principal); Z53.9 Procedure and treatment not carried out, unspecified reason ==

== ENCOUNTER → 2023-05-04 | Outpatient (CLI) | payer OTHER ==
[~2023-05-04] MED LIST changes: +LIDOCAINE 1% MDV 20ML VIAL As Ordered ONE
[2023-05-04 10:45] VITALS: TEMP 98
[2023-05-04 11:00] VITALS: BP 130/89; O2SAT 97
== END ==
LOC: M IRPRO 10:07
PROVIDERS: ATTEND Internal Medicine Medical Oncology
DX: E04.1 Nontoxic single thyroid nodule (principal); C34.90 Malignant neoplasm of unspecified part of unspecified bronchus or lung

== ENCOUNTER → 2023-05-09 | Outpatient (CLI) | payer OTHER ==
[~2023-05-09] MED LIST changes: -LIDOCAINE 1% MDV 20ML VIAL As Ordered ONE
== END ==
LOC: M PLARAD 13:52
PROVIDERS: ATTEND Internal Medicine Medical Oncology
DX: C34.11 Malignant neoplasm of upper lobe, right bronchus or lung (principal); E04.1 Nontoxic single thyroid nodule; J90 Pleural effusion, not elsewhere classified; D35.01 Benign neoplasm of right adrenal gland; Z90.2 Acquired absence of lung [part of]
CPT/HCPCS: 78815; A9552

== ENCOUNTER → 2023-06-07 | Outpatient (CLI) | payer OTHER ==
[~2023-06-07] MED LIST changes: +LEVO1TAB39 PO; +PRED20TA
== END ==
LOC: M CLY 13:56
PROVIDERS: ATTEND Physician Assistant
DX: S82.431A Displaced oblique fracture of shaft of right fibula, initial encounter for closed fracture (principal); W00.0XXA Fall on same level due to ice and snow, initial encounter; Y92.9 Unspecified place or not applicable; Y93.9 Activity, unspecified; Y99.9 Unspecified external cause status

== ENCOUNTER → 2023-06-08 | Outpatient (CLI) | payer OTHER | LOC: M SOG 10:09 | PROVIDERS: ATTEND Physician Assistant | DX: M79.661 Pain in right lower leg (principal); S82.451A Displaced comminuted fracture of shaft of right fibula, initial encounter for closed fracture; Y92.9 Unspecified place or not applicable; Y93.9 Activity, unspecified ==

== ENCOUNTER → 2023-06-17 | Outpatient (CLI) | payer OTHER | LOC: M SOG 08:13 | PROVIDERS: ATTEND Physician Assistant | DX: S82.831A Other fracture of upper and lower end of right fibula, initial encounter for closed fracture (principal); Y92.9 Unspecified place or not applicable; Y93.9 Activity, unspecified ==

== ENCOUNTER → 2023-07-01 | Outpatient (CLI) | payer OTHER | LOC: M SOG 13:05 | PROVIDERS: ATTEND Physician Assistant | DX: S82.831A Other fracture of upper and lower end of right fibula, initial encounter for closed fracture (principal); Y93.9 Activity, unspecified; Y92.9 Unspecified place or not applicable ==

== ENCOUNTER → 2023-07-20 | Outpatient (CLI) | payer OTHER ==
[~2023-07-20] MED LIST changes: +DOXY-323; -DOXY-443
== END ==
LOC: M SOG 13:50
PROVIDERS: ATTEND Physician Assistant
DX: S82.831D Other fracture of upper and lower end of right fibula, subsequent encounter for closed fracture with routine healing (principal)

== ENCOUNTER → 2023-07-26 | Outpatient (REF) | payer OTHER ==
[2023-07-26 17:48] LABS: BLOOD UREA NITROGEN 12 MG/DL (9-23); CALCIUM LEVEL 9.9 MG/DL (8.3-10.6); CARBON DIOXIDE LEVEL 30 MMOL/L (20-31); CHLORIDE LEVEL 103 MMOL/L (98-107); GLOMERULAR FILTRATION RATE > 60.0 (>39); GLUCOSE, FASTING 93 MG/DL (74-106); POTASSIUM SERUM 4.2 MMOL/L (3.5-5.1); SODIUM LEVEL 137 MMOL/L (136-145)
[2023-07-26 18:05] LABS: HEMATOCRIT 42.1 % (36.0-47.0); MEAN CORPUSCULAR HEMOGLOBIN 30.8 pg (27.0-33.0); MEAN CORPUSCULAR HGB CONC 33.3 g/dl (32.0-36.5); MEAN CORPUSCULAR VOLUME 92.7 fl (80.0-96.0); PLATELET COUNT, AUTOMATED 273 10^3/uL (150-450); RED BLOOD COUNT 4.54 10^6/uL (4.00-5.40); WHITE BLOOD COUNT 6.7 10^3/uL (4.0-10.0)
== END ==
LOC: M SFHCCLAY 14:40
PROVIDERS: ATTEND Family Medicine
DX: C34.11 Malignant neoplasm of upper lobe, right bronchus or lung (principal); E04.1 Nontoxic single thyroid nodule; I10 Essential (primary) hypertension

== ENCOUNTER → 2023-08-22 | Outpatient (CLI) | payer OTHER | LOC: M SOG 07:55 | PROVIDERS: ATTEND Physician Assistant | DX: M25.571 Pain in right ankle and joints of right foot (principal); S82.431D Displaced oblique fracture of shaft of right fibula, subsequent encounter for closed fracture with routine healing ==

== ENCOUNTER → 2023-10-13 | Outpatient (REF) | payer OTHER ==
[2023-10-13 17:50] LABS: BASO # 0.1 10^3/uL (0.0-0.2); BASO % 1.1 % (0.0-1.0); EOS # 0.2 10^3/uL (0.0-0.5); EOS % 2.6 % (0.0-3.0); HEMATOCRIT 41.4 % (36.0-47.0); HEMOGLOBIN 13.6 g/dl (12.0-15.5); LYMPH # 2.1 10^3/uL (1.5-5.0); LYMPH % 27.4 % (24.0-44.0); MEAN CORPUSCULAR HGB CONC 32.9 g/dl (32.0-36.5); MEAN CORPUSCULAR VOLUME 91.2 fl (80.0-96.0); MONO # 0.7 10^3/uL (0.0-0.8); MONO % 8.9 % (2.0-8.0); NEUTROPHILS # 4.5 10^3/uL (1.5-8.5); NEUTROPHILS % 59.7 % (36.0-66.0); PLATELET COUNT, AUTOMATED 260 10^3/uL (150-450); RED BLOOD COUNT 4.54 10^6/uL (4.00-5.40); WHITE BLOOD COUNT 7.6 10^3/uL (4.0-10.0)
[2023-10-13 18:17] LABS: ALBUMIN 3.8 G/DL (3.2-5.2); ALKALINE PHOSPHATASE 159 U/L (46-116); ALT/SGPT 18 U/L (7.0-40); AST/SGOT 16 U/L (<34); BILIRUBIN,TOTAL 0.3 MG/DL (0.3-1.2); BLOOD UREA NITROGEN 13 MG/DL (9-23); CALCIUM LEVEL 9.5 MG/DL (8.3-10.6); CARBON DIOXIDE LEVEL 30 MMOL/L (20-31); CHLORIDE LEVEL 102 MMOL/L (98-107); GLOMERULAR FILTRATION RATE > 60.0 (>39); GLUCOSE, FASTING 108 MG/DL (74-106); POTASSIUM SERUM 4.7 MMOL/L (3.5-5.1); SODIUM LEVEL 136 MMOL/L (136-145); TOTAL PROTEIN 6.9 G/DL (5.7-8.2)
== END ==
LOC: M LABDRAWC 17:28
PROVIDERS: ATTEND Specialist
DX: C44.92 Squamous cell carcinoma of skin, unspecified (principal)

== ENCOUNTER → 2023-11-01 | Outpatient (CLI) | payer OTHER ==
[~2023-11-01] MED LIST changes: +ISOVUE-370 76% 100ML VIAL As Ordered ONE
== END ==
LOC: M RAD 10:59
PROVIDERS: ATTEND Specialist
DX: C34.90 Malignant neoplasm of unspecified part of unspecified bronchus or lung (principal); E04.1 Nontoxic single thyroid nodule; Z90.2 Acquired absence of lung [part of]; J98.11 Atelectasis; R91.8 Other nonspecific abnormal finding of lung field; J43.9 Emphysema, unspecified; J90 Pleural effusion, not elsewhere classified; I25.10 Atherosclerotic heart disease of native coronary artery without angina pectoris; I70.0 Atherosclerosis of aorta
CPT/HCPCS: 71260; Q9967

== ENCOUNTER → 2024-01-06 | Outpatient (CLI) | payer OTHER ==
[~2024-01-06] MED LIST changes: -DOXY-323; +DOXY-441; -ISOVUE-370 76% 100ML VIAL As Ordered ONE
== END ==
LOC: M WHC 07:13
PROVIDERS: ATTEND Family Medicine
DX: M81.0 Age-related osteoporosis without current pathological fracture (principal); M85.88 Other specified disorders of bone density and structure, other site; Z78.0 Asymptomatic menopausal state; E04.1 Nontoxic single thyroid nodule

== ENCOUNTER → 2024-01-06 | Outpatient (CLI) | payer OTHER | LOC: M WHC 07:12 | PROVIDERS: ATTEND Family Medicine | DX: E04.1 Nontoxic single thyroid nodule (principal) ==

== ENCOUNTER → 2024-01-20 | Outpatient (REF) | payer OTHER ==
[2024-01-20 12:30] LABS: BASO # 0.1 10^3/uL (0.0-0.2); BASO % 1.1 % (0.0-1.0); EOS # 0.2 10^3/uL (0.0-0.5); EOS % 2.8 % (0.0-3.0); HEMATOCRIT 42.5 % (36.0-47.0); HEMOGLOBIN 15.2 g/dl (12.0-15.5); LYMPH # 1.6 10^3/uL (1.5-5.0); LYMPH % 30.6 % (24.0-44.0); MEAN CORPUSCULAR HEMOGLOBIN 32.7 pg (27.0-33.0); MEAN CORPUSCULAR HGB CONC 35.8 g/dl (32.0-36.5); MEAN CORPUSCULAR VOLUME 91.4 fl (80.0-96.0); MONO # 0.5 10^3/uL (0.0-0.8); NEUTROPHILS % 56.3 % (36.0-66.0); PLATELET COUNT, AUTOMATED 236 10^3/uL (150-450); RED BLOOD COUNT 4.65 10^6/uL (4.00-5.40); WHITE BLOOD COUNT 5.4 10^3/uL (4.0-10.0)
[2024-01-20 12:32] LABS: IRON (FE) 126 UG/DL (50-170); PERCENT SATURATION 32.1 % (13.2-45.0); TOTAL IRON BINDING CAPACITY 392 UG/DL (250-425)
[2024-01-20 12:33] LABS: ALKALINE PHOSPHATASE 140 U/L (35-104); ALT/SGPT 20 U/L (7.0-40); AST/SGOT 13 U/L (<34); BILIRUBIN,TOTAL 0.6 MG/DL (0.3-1.2); BLOOD UREA NITROGEN 13 MG/DL (9-23); CALCIUM LEVEL 10.1 MG/DL (8.3-10.6); CARBON DIOXIDE LEVEL 32 MMOL/L (20-31); CHLORIDE LEVEL 104 MMOL/L (98-107); CHOLESTEROL LEVEL 259 MG/DL (<200); CHOLESTEROL RISK RATIO 2.84 (<5); CREATININE FOR GFR 0.54 MG/DL (0.55-1.30); GLOMERULAR FILTRATION RATE > 60.0 (>39); GLUCOSE, FASTING 99 MG/DL (74-106); LDL CHOLESTEROL 141.4 MG/DL (<100); POTASSIUM SERUM 4.8 MMOL/L (3.5-5.1); SODIUM LEVEL 140 MMOL/L (136-145); TOTAL PROTEIN 7.7 G/DL (5.7-8.2); TRIGLYCERIDES LEVEL 133 MG/DL (<150)
[2024-01-20 12:36] LABS: THYROID STIMULATING HORMONE 1.711 uIU/ML (0.55-4.78)
[2024-01-20 12:37] LABS: FERRITIN 22.2 NG/ML (7.3-270.7); FREE T4 1.19 NG/DL (0.89-1.76)
== END ==
LOC: M SFHCCLAY 08:15
PROVIDERS: ATTEND Family Medicine
DX: I10 Essential (primary) hypertension (principal); F32.9 Major depressive disorder, single episode, unspecified; J44.1 Chronic obstructive pulmonary disease with (acute) exacerbation; D50.9 Iron deficiency anemia, unspecified; E04.1 Nontoxic single thyroid nodule

== ENCOUNTER → 2024-01-25 | Outpatient (REF) | payer OTHER | LOC: M SFHCCLAY 10:26 | PROVIDERS: ATTEND Physician Assistant | DX: Z01.818 Encounter for other preprocedural examination (principal) ==

== ENCOUNTER → 2024-03-08 | Outpatient (CLI) | payer OTHER | LOC: M CLY 14:58 | PROVIDERS: ATTEND Physician Assistant | DX: R93.7 Abnormal findings on diagnostic imaging of other parts of musculoskeletal system (principal); S29.9XXA Unspecified injury of thorax, initial encounter; X58.XXXA Exposure to other specified factors, initial encounter; Y92.9 Unspecified place or not applicable; Y93.9 Activity, unspecified; Y99.9 Unspecified external cause status ==

== ENCOUNTER → 2024-04-24 | Outpatient (REF) | payer MEDICARE ==
[2024-04-24 12:56] LABS: BASO # 0.1 10^3/uL (0.0-0.2); BASO % 1.1 % (0.0-1.0); EOS # 0.1 10^3/uL (0.0-0.5); HEMATOCRIT 42.3 % (36.0-47.0); LYMPH # 1.7 10^3/uL (1.5-5.0); LYMPH % 26.9 % (24.0-44.0); MEAN CORPUSCULAR HEMOGLOBIN 30.2 pg (27.0-33.0); MEAN CORPUSCULAR HGB CONC 33.1 g/dl (32.0-36.5); MEAN CORPUSCULAR VOLUME 91.2 fl (80.0-96.0); MONO # 0.5 10^3/uL (0.0-0.8); MONO % 7.8 % (2.0-8.0); PLATELET COUNT, AUTOMATED 254 10^3/uL (150-450); RED BLOOD COUNT 4.64 10^6/uL (4.00-5.40); WHITE BLOOD COUNT 6.4 10^3/uL (4.0-10.0)
[2024-04-24 13:49] LABS: TOTAL IRON BINDING CAPACITY 365 UG/DL (250-425)
[2024-04-24 13:50] LABS: ALBUMIN 3.7 G/DL (3.2-5.2); ALKALINE PHOSPHATASE 134 U/L (35-104); ALT/SGPT 20 U/L (7.0-40); AST/SGOT 18 U/L (<34); BILIRUBIN,TOTAL 0.4 MG/DL (0.3-1.2); BLOOD UREA NITROGEN 13 MG/DL (9-23); CALCIUM LEVEL 9.3 MG/DL (8.3-10.6); CARBON DIOXIDE LEVEL 29 MMOL/L (20-31); CHLORIDE LEVEL 106 MMOL/L (98-107); CHOLESTEROL LEVEL 222 MG/DL (<200); CHOLESTEROL RISK RATIO 2.65 (<5); CREATININE FOR GFR 0.51 MG/DL (0.55-1.30); FERRITIN 21.3 NG/ML (7.3-270.7); FREE T4 1.15 NG/DL (0.89-1.76); GLOMERULAR FILTRATION RATE > 60.0 (>39); GLUCOSE, FASTING 95 MG/DL (74-106); HDL CHOLESTEROL 83.5 MG/DL (>40); IRON (FE) 61 UG/DL (50-170); LDL CHOLESTEROL 122.3 MG/DL (<100); NON-HDL-C 138.5 MG/DL; PERCENT SATURATION 16.7 % (13.2-45.0); POTASSIUM SERUM 4.5 MMOL/L (3.5-5.1); SODIUM LEVEL 140 MMOL/L (136-145); TOTAL PROTEIN 6.9 G/DL (5.7-8.2); TRIGLYCERIDES LEVEL 81 MG/DL (<150)
[2024-04-24 13:51] LABS: THYROID STIMULATING HORMONE 2.005 uIU/ML (0.55-4.78)
[2024-04-24 14:39] LABS: HEMOGLOBIN A1c 5.5 % (4.0-6.0)
== END ==
LOC: M SFHCCLAY 07:05
PROVIDERS: ATTEND Nurse Practitioner Family
DX: F20.9 Schizophrenia, unspecified (principal); J44.9 Chronic obstructive pulmonary disease, unspecified; C34.11 Malignant neoplasm of upper lobe, right bronchus or lung; I10 Essential (primary) hypertension; Z99.81 Dependence on supplemental oxygen; D50.9 Iron deficiency anemia, unspecified; E04.1 Nontoxic single thyroid nodule; G47.33 Obstructive sleep apnea (adult) (pediatric); M51.369 Other intervertebral disc degeneration, lumbar region without mention of lumbar back pain or lower extremity pain; Z79.899 Other long term (current) drug therapy

== ENCOUNTER → 2024-04-24 | Outpatient (REF) | payer MEDICARE ==
[2024-04-24 14:07] LABS: BASO # 0.1 10^3/uL (0.0-0.2); BASO % 0.8 % (0.0-1.0); EOS # 0.2 10^3/uL (0.0-0.5); EOS % 2.6 % (0.0-3.0); HEMOGLOBIN 13.9 g/dl (12.0-15.5); LYMPH # 1.7 10^3/uL (1.5-5.0); LYMPH % 26.9 % (24.0-44.0); MEAN CORPUSCULAR HEMOGLOBIN 30.3 pg (27.0-33.0); MEAN CORPUSCULAR HGB CONC 33.1 g/dl (32.0-36.5); MEAN CORPUSCULAR VOLUME 91.5 fl (80.0-96.0); MONO # 0.5 10^3/uL (0.0-0.8); MONO % 7.9 % (2.0-8.0); NEUTROPHILS % 61.6 % (36.0-66.0); PLATELET COUNT, AUTOMATED 256 10^3/uL (150-450); RED BLOOD COUNT 4.59 10^6/uL (4.00-5.40); WHITE BLOOD COUNT 6.4 10^3/uL (4.0-10.0)
[2024-04-24 14:19] LABS: ALBUMIN 3.7 G/DL (3.2-5.2); ALKALINE PHOSPHATASE 133 U/L (35-104); ALT/SGPT 23 U/L (7.0-40); AST/SGOT 20 U/L (<34); BILIRUBIN,TOTAL 0.4 MG/DL (0.3-1.2); BLOOD UREA NITROGEN 14 MG/DL (9-23); CALCIUM LEVEL 9.3 MG/DL (8.3-10.6); CARBON DIOXIDE LEVEL 29 MMOL/L (20-31); CHLORIDE LEVEL 104 MMOL/L (98-107); CREATININE FOR GFR 0.52 MG/DL (0.55-1.30); GLOMERULAR FILTRATION RATE > 60.0 (>39); GLUCOSE, FASTING 93 MG/DL (74-106); MAGNESIUM LEVEL 2.3 MG/DL (1.8-2.4); POTASSIUM SERUM 4.5 MMOL/L (3.5-5.1); SODIUM LEVEL 140 MMOL/L (136-145); TOTAL PROTEIN 6.8 G/DL (5.7-8.2)
[2024-04-24 14:20] LABS: FREE T3 3.6 PG/ML (2.3-4.2); FREE T4 1.15 NG/DL (0.89-1.76); THYROID STIMULATING HORMONE 2.036 uIU/ML (0.55-4.78)
== END ==
LOC: M LABDRAWC 12:19
PROVIDERS: ATTEND Internal Medicine Medical Oncology
DX: C34.90 Malignant neoplasm of unspecified part of unspecified bronchus or lung (principal); Z79.899 Other long term (current) drug therapy

== ENCOUNTER → 2024-05-03 | Outpatient (CLI) | payer MEDICARE ==
[~2024-05-03] MED LIST changes: +ISOVUE-370 76% 100ML VIAL ONE
== END ==
LOC: M PLAIMG 09:54
PROVIDERS: ATTEND Dietitian, Registered
DX: C34.90 Malignant neoplasm of unspecified part of unspecified bronchus or lung (principal); J98.4 Other disorders of lung
CPT/HCPCS: 71260; Q9967

== ENCOUNTER → 2024-07-31 | Outpatient (REF) | payer MEDICARE ==
[~2024-07-31] MED LIST changes: -ISOVUE-370 76% 100ML VIAL ONE
[2024-07-31 13:10] LABS: ALBUMIN 3.8 G/DL (3.2-5.2); ALKALINE PHOSPHATASE 135 U/L (35-104); ALT/SGPT 18 U/L (7.0-40); AST/SGOT 16 U/L (<34); BILIRUBIN,TOTAL 0.5 MG/DL (0.3-1.2); BLOOD UREA NITROGEN 9 MG/DL (9-23); CALCIUM LEVEL 9.5 MG/DL (8.3-10.6); CARBON DIOXIDE LEVEL 30 MMOL/L (20-31); CHLORIDE LEVEL 104 MMOL/L (98-107); CHOLESTEROL LEVEL 223 MG/DL (<200); CHOLESTEROL RISK RATIO 2.77 (<5); CREATININE FOR GFR 0.55 MG/DL (0.55-1.30); GLOMERULAR FILTRATION RATE > 90.0 (>32); GLUCOSE, FASTING 94 MG/DL (74-106); HDL CHOLESTEROL 80.3 MG/DL (>40); LDL CHOLESTEROL 119.9 MG/DL (<100); NON-HDL-C 142.7 MG/DL; POTASSIUM SERUM 4.6 MMOL/L (3.5-5.1); SODIUM LEVEL 141 MMOL/L (136-145); TOTAL PROTEIN 6.9 G/DL (5.7-8.2); TRIGLYCERIDES LEVEL 114 MG/DL (<150)
[2024-07-31 13:11] LABS: FREE T4 1.18 NG/DL (0.89-1.76)
[2024-07-31 13:12] LABS: THYROID STIMULATING HORMONE 1.749 uIU/ML (0.55-4.78)
[2024-07-31 13:23] LABS: HEMOGLOBIN A1c 5.8 % (4.0-6.0)
== END ==
LOC: M SFHCCLAY 07:08
PROVIDERS: ATTEND Nurse Practitioner Family
DX: F20.9 Schizophrenia, unspecified (principal); J44.9 Chronic obstructive pulmonary disease, unspecified; C34.11 Malignant neoplasm of upper lobe, right bronchus or lung; I10 Essential (primary) hypertension; Z99.81 Dependence on supplemental oxygen; D50.9 Iron deficiency anemia, unspecified; E04.1 Nontoxic single thyroid nodule; G47.33 Obstructive sleep apnea (adult) (pediatric); M51.369 Other intervertebral disc degeneration, lumbar region without mention of lumbar back pain or lower extremity pain; Z79.899 Other long term (current) drug therapy

== ENCOUNTER → 2024-11-26 | Outpatient (CLI) | payer MEDICARE | LOC: M RAD 11:11 | PROVIDERS: ATTEND Nurse Practitioner Family | DX: C34.11 Malignant neoplasm of upper lobe, right bronchus or lung (principal) ==

== ENCOUNTER → 2025-02-15 | Outpatient (CLI) | payer MEDICARE | LOC: M CLY 09:55 | PROVIDERS: ATTEND Physician Assistant | DX: R05.1 Acute cough (principal) ==